=== PATIENT | male | born 1930 | race Caucasian/White ===

== ENCOUNTER → 2017-04-08 | Outpatient (CLI) | payer MEDICARE, BC ==
--- NOTE | 2017-04-08 09:05 | US ---
EXAMINATION TYPE: US duplex aorta DATE OF EXAM: 04/08/2017 COMPARISON: NONE CLINICAL HISTORY: Screening for disorder Z13.9. EXAM MEASUREMENTS: Abdominal Aorta: Proximal: 1.7 x 1.9cm Mid: 1.6 x 1.8cm Distal: 1.3 x 1.6cm Right Iliac: 0.7 x 1.1cm Left Iliac: 0.7 x 1.2cm No AAA seen at this time, limited by overlying midline bowel gas. IMPRESSION: 1. Normal abdominal aorta ultrasound. 2. There is mild limitation due to overlying bowel gas.
== END | disposition home or self-care (01) ==
LOC: RADUSWWP 08:21
PROVIDERS: ATTEND Family Medicine
DX: Z13.9 Encounter for screening, unspecified (principal)
CPT/HCPCS: 93979

== ENCOUNTER 2017-09-09 01:29 | Observation (INO) | payer MEDICARE, BC ==
[2017-09-09] MEDS ORDERED: NITROGLYCERIN OINT 1 INCH/GM PACKET TOPICAL STA (01:41)
[2017-09-09] MEDS ORDERED: ASPIRIN 81 MG PO STA (01:41)
[2017-09-09] MEDS ORDERED: ACETAMINOPHEN TAB 500 MG TAB PO STA (01:42)
[2017-09-09] MEDS: NITROGLYCERIN SL TABS 0.4 MG TAB SUBLINGUAL STA ×3 (01:44→02:25)
--- NOTE | 2017-09-09 01:49 | ED ---
General Adult HPI - General Chief complaint: Chest Pain Stated complaint: Chest Pain Time Seen by Provider: 09/09/17 01:30 Source: patient, RN notes reviewed Mode of arrival: ambulatory Limitations: no limitations - History of Present Illness Initial comments: This is an 87-year-old male who presents emergency department today complaining of chest pain with some difficulty breathing. Patient states is no radiation of the pain there's no nausea or sweating episodes. Patient states she's never experienced this before. Patient states the pain is constant and it's like a heaviness. Patient states he is hypertensive patient as well as high cholesterol. Patient denies any recent fever chills or cough. Patient denies abdominal pain patient denies nausea vomiting diarrhea. Patient denies any headache patient denies numbness weakness. Patient denies any lightheadedness dizziness or near syncopal episode. Patient states he believes his heart rates always a little bit slow. - Related Data Home Medications Medication Instructions Recorded Confirmed Lovastatin [Mevacor] 20 mg PO DAILY 06/16/14 04/17/15 Aspirin EC [Ecotrin] 81 mg PO DAILY 04/17/15 04/17/15 Celecoxib [CeleBREX] 200 mg PO DAILY 04/17/15 04/17/15 Levofloxacin [Levaquin] 500 mg PO DAILY 04/17/15 04/17/15 Metoprolol Succinate [Toprol XL] 100 mg PO DAILY 04/17/15 04/17/15 Allergies Allergy/AdvReac Type Severity Reaction Status Date / Time No Known Allergies Allergy Verified 09/09/17 01:34 Review of Systems ROS Statement: Those systems with pertinent positive or pertinent negative responses have been documented in the HPI. ROS Other: All systems not noted in ROS Statement are negative. Past Medical History Past Medical History: Hyperlipidemia, Hypertension Additional Past Medical History / Comment(s): arthritis History of Any Multi-Drug Resistant Organisms: None Reported Past Surgical History: Hernia Repair, Prostate Surgery Additional Past Surgical History / Comment(s): cataract Past Psychological History: No Psychological Hx Reported Smoking Status: Former smoker Past Alcohol Use History: Occasional Past Drug Use History: None Reported General Exam - General Exam Comments Initial Comments: GENERAL: Patient is well-developed and well-nourished. Patient is nontoxic and well- hydrated and is in fmildly distress. ENT: Neck is soft and supple. No significant lymphadenopathy is noted. Oropharynx is clear. Moist mucous membranes. Neck has full range of motion without eliciting any pain. EYES: The sclera were anicteric and conjunctiva were pink and moist. Extraocular movements were intact and pupils were equal round and reactive to light. Eyelids were unremarkable. PULMONARY: Unlabored respirations. Good breath sounds bilaterally. No audible rales rhonchi or wheezing was noted. CARDIOVASCULAR: There is a regular rate and rhythm without any murmurs gallops or rubs. ABDOMEN: Soft and nontender with normal bowel sounds. No palpable organomegaly was noted. There is no palpable pulsatile mass. SKIN: No skin lesions rashes or erythema noted NEUROLOGIC: Patient is alert and oriented x3. Cranial nerves II through XII are grossly intact. Motor and sensory are also intact. Normal speech, volume and content. Symmetrical smile. MUSCULOSKELETAL: Normal extremities with adequate strength and full range of motion. No lower extremity swelling or edema. No calf tenderness. LYMPHATICS: No significant lymphadenopathy is noted PSYCHIATRIC: Normal psychiatric evaluation. Limitations: no limitations Course Vital Signs 09/09/17 09/09/17 09/09/17 01:31 01:34 02:23 Temperature 98.3 F Pulse Rate 50 L 47 L 45 L Respiratory 18 20 20 Rate Blood Pressure 247/107 214/100 174/65 O2 Sat by Pulse 99 97 97 Oximetry 09/09/17 02:35 Temperature Pulse Rate 43 L Respiratory 18 Rate Blood Pressure 160/70 O2 Sat by Pulse 97 Oximetry Medical Decision Making - Medical Decision Making EKG shows sinus bradycardia at a rate of [address] interval is 226 QRS is 102 QT intervals 490 QTC is 442. Patient's EKG shows no ST segment elevation or depression. One pack and reevaluate the patient he stated the nitroglycerin helped his chest pain but his heart rate was 41 bpm. - Lab Data Result diagrams: 09/09/17 01:45 09/09/17 01:45 Lab Results 09/09/17 09/09/17 09/09/17 Range/Units 01:45 01:45 01:45 WBC 7.5 (3.8-10.6) k/uL RBC 4.82 (4.30-5.90) m/uL Hgb 14.6 (13.0-17.5) gm/dL Hct 46.4 (39.0-53.0) % MCV 96.2 (80.0-100.0) fL MCH 30.2 (25.0-35.0) pg MCHC 31.4 (31.0-37.0) g/dL RDW 14.8 (11.5-15.5) % Plt Count 235 (150-450) k/uL Neutrophils % 45 % Lymphocytes % 39 % Monocytes % 8 % Eosinophils % 4 % Basophils % 1 % Neutrophils # 3.4 (1.3-7.7) k/uL Lymphocytes # 2.9 (1.0-4.8) k/uL Monocytes # 0.6 (0-1.0) k/uL Eosinophils # 0.3 (0-0.7) k/uL Basophils # 0.1 (0-0.2) k/uL PT (9.0-12.0) sec INR (<1.2) APTT (22.0-30.0) sec Sodium 139 (137-145) mmol/L Potassium 3.7 (3.5-5.1) mmol/L Chloride 103 (98-107) mmol/L Carbon Dioxide 25 (22-30) mmol/L Anion Gap 11 mmol/L BUN 19 (9-20) mg/dL Creatinine 1.30 H (0.66-1.25) mg/dL Est GFR (MDRD) Af Amer >60 (>60 ml/min/1.73 sqM) Est GFR (MDRD) Non-Af 52 (>60 ml/min/1.73 sqM) Glucose 114 H (74-99) mg/dL Calcium 9.6 (8.4-10.2) mg/dL Magnesium 2.0 (1.6-2.3) mg/dL Total Bilirubin 0.5 (0.2-1.3) mg/dL AST 25 (17-59) U/L ALT 36 (21-72) U/L Alkaline Phosphatase 111 (38-126) U/L Total Creatine Kinase 39 L (55-170) U/L CK-MB (CK-2) 0.6 (0.0-2.4) ng/mL CK-MB (CK-2) Rel Index 1.5 Troponin I <0.012 (0.000-0.034) ng/mL Total Protein 7.2 (6.3-8.2) g/dL Albumin 4.1 (3.5-5.0) g/dL 09/09/17 Range/Units 01:45 WBC (3.8-10.6) k/uL RBC (4.30-5.90) m/uL Hgb (13.0-17.5) gm/dL Hct (39.0-53.0) % MCV (80.0-100.0) fL MCH (25.0-35.0) pg MCHC (31.0-37.0) g/dL RDW (11.5-15.5) % Plt Count (150-450) k/uL Neutrophils % % Lymphocytes % % Monocytes % % Eosinophils % % Basophils % % Neutrophils # (1.3-7.7) k/uL Lymphocytes # (1.0-4.8) k/uL Monocytes # (0-1.0) k/uL Eosinophils # (0-0.7) k/uL Basophils # (0-0.2) k/uL PT 10.3 (9.0-12.0) sec INR 1.1 (<1.2) APTT 25.0 (22.0-30.0) sec Sodium (137-145) mmol/L Potassium (3.5-5.1) mmol/L Chloride (98-107) mmol/L Carbon Dioxide (22-30) mmol/L Anion Gap mmol/L BUN (9-20) mg/dL Creatinine (0.66-1.25) mg/dL Est GFR (MDRD) Af Amer (>60 ml/min/1.73 sqM) Est GFR (MDRD) Non-Af (>60 ml/min/1.73 sqM) Glucose (74-99) mg/dL Calcium (8.4-10.2) mg/dL Magnesium (1.6-2.3) mg/dL Total Bilirubin (0.2-1.3) mg/dL AST (17-59) U/L ALT (21-72) U/L Alkaline Phosphatase (38-126) U/L Total Creatine Kinase (55-170) U/L CK-MB (CK-2) (0.0-2.4) ng/mL CK-MB (CK-2) Rel Index Troponin I (0.000-0.034) ng/mL Total Protein (6.3-8.2) g/dL Albumin (3.5-5.0) g/dL Critical Care Time Critical Care Time: Yes Total Critical Care Time: 35 Disposition Clinical Impression: Unstable angina pectoris, Bradycardia Disposition: ADMITTED IP TO THIS HOSP Referrals: Jose Castillo MD [Primary Care Provider] - 1-2 days Time of Disposition: 02:53
[2017-09-09 01:55] LABS: Basophils # (A) 0.1 k/uL (0-0.2); Basophils % (A) 1 %; Eosinophils # (A) 0.3 k/uL (0-0.7); Eosinophils % (A) 4 %; HCT 46.4 % (39.0-53.0); HGB 14.6 gm/dL (13.0-17.5); Lymphocytes # (A) 2.9 k/uL (1.0-4.8); Lymphocytes % (A) 39 %; MCH 30.2 pg (25.0-35.0); MCHC 31.4 g/dL (31.0-37.0); MCV 96.2 fL (80.0-100.0); Mean Platelet Volume 7.9; Monocytes # (A) 0.6 k/uL (0-1.0); Monocytes % (A) 8 %; Neutrophils # (A) 3.4 k/uL (1.3-7.7); Neutrophils % (A) 45 %; Platelet Count 235 k/uL (150-450); RBC 4.82 m/uL (4.30-5.90); RDW 14.8 % (11.5-15.5); WBC 7.5 k/uL (3.8-10.6)
--- NOTE | 2017-09-09 01:59 | XR ---
EXAMINATION TYPE: XR chest 2V DATE OF EXAM: 09/09/2017 COMPARISON: NONE HISTORY: Chest pain TECHNIQUE: Frontal and lateral views of the chest are obtained. FINDINGS: There is coarsening of interstitial markings. There is no gross heart failure. Costophreni c angles are clear. Bony thorax is intact. There are chest leads. IMPRESSION: Pulmonary fibrotic changes.
[2017-09-09 02:03] LABS: INR 1.1 (<1.2); Prothrombin Time 10.3 sec (9.0-12.0)
[2017-09-09 02:04] LABS: ALT 36 U/L (21-72); AST 25 U/L (17-59); Albumin 4.1 g/dL (3.5-5.0); Alkaline Phosphatase 111 U/L (38-126); Anion Gap 11 mmol/L; Blood Urea Nitrogen 19 mg/dL (9-20); Calcium 9.6 mg/dL (8.4-10.2); Carbon Dioxide 25 mmol/L (22-30); Chloride 103 mmol/L (98-107); Glucose 114 mg/dL (74-99); Potassium 3.7 mmol/L (3.5-5.1); Sodium 139 mmol/L (137-145); Total Bilirubin 0.5 mg/dL (0.2-1.3); Total Protein 7.2 g/dL (6.3-8.2)
[2017-09-09 02:13] LABS: Creatine Kinase 39 U/L (55-170)
[2017-09-09 02:26] LABS: Creatine Kinase MB 0.6 ng/mL (0.0-2.4); Troponin I <0.012 ng/mL (0.000-0.034)
[2017-09-09] MEDS ORDERED: HEPARIN SODIUM,PORCINE 5,000 UNIT/ML 1 ML VIAL IV ONE (02:37)
[2017-09-09] MEDS ORDERED: HEPARIN SOD,PORK IN 0.45% NACL 25,000 UNIT in 0.45% NACL 1 500ML.BAG IV SCH (02:45)
[2017-09-09] MEDS ORDERED: NITROGLYCERIN SL TABS 0.4 MG TAB SUBLINGUAL PRN ×2 (02:53→11:53)
[2017-09-09 03:28] VITALS: BMI 27.8
[2017-09-09] MEDS: NITROGLYCERIN OINT 1 INCH/GM PACKET TOPICAL SCH ×3 (04:59→16:23)
[2017-09-09] MEDS ORDERED: KETOROLAC 30 MG/ML 1 ML VIAL IVP STA (05:10)
[2017-09-09] MEDS ORDERED: amLODIPine 10 MG TAB PO STA (05:11)
[2017-09-09 08:47] LABS: Basophils % (A) 0 %; Eosinophils % (A) 0 %; HCT 40.2 % (39.0-53.0); HGB 13.4 gm/dL (13.0-17.5); Lymphocytes # (A) 1.3 k/uL (1.0-4.8); Lymphocytes % (A) 18 %; MCH 31.3 pg (25.0-35.0); MCHC 33.3 g/dL (31.0-37.0); Mean Platelet Volume 7.5; Monocytes # (A) 0.4 k/uL (0-1.0); Monocytes % (A) 5 %; Neutrophils # (A) 5.6 k/uL (1.3-7.7); Neutrophils % (A) 74 %; Platelet Count 228 k/uL (150-450); RBC 4.27 m/uL (4.30-5.90); RDW 13.3 % (11.5-15.5); WBC 7.5 k/uL (3.8-10.6)
[2017-09-09 09:02] LABS: Anion Gap 9 mmol/L; Blood Urea Nitrogen 19 mg/dL (9-20); Calcium 9.1 mg/dL (8.4-10.2); Carbon Dioxide 27 mmol/L (22-30); Chloride 104 mmol/L (98-107); Glucose 128 mg/dL (74-99); Potassium 4.6 mmol/L (3.5-5.1); Sodium 140 mmol/L (137-145)
[2017-09-09 09:43] LABS: Creatine Kinase MB 18.5 ng/mL (0.0-2.4); Troponin I 0.909 ng/mL (0.000-0.034)
[2017-09-09] MEDS ORDERED: LISINOPRIL 10 MG TAB PO STA (11:43)
--- NOTE | 2017-09-09 11:52 | P.CRDCN ---
History of Present Illness Consult date: 09/09/17 Requesting physician: Adina Bolden Consult reason: chest pain Chief complaint: Chest Pain History of present illness: This is an 87-year-old gentleman with history of hypertension, hyperlipidemia, nonsmoker, nondiabetic, family history of premature coronary artery disease, who presents to the hospital with symptoms of chest discomfort. He states that around 1 AM this morning he got up to use the restroom, shortly thereafter developed pressure in the center of his chest, which he described as a heavy sensation with associated tightness. He denies any shortness of breath, no diaphoresis, no nausea. He came to the emergency room for further evaluation. EKG on presentation here showed a sinus bradycardia with first-degree AV block, mild STelevation noted in the inferior leads with minimal ST depression in the anterior leads. Chest X-ray reveals pulmonary fibrotic changes. B/P on arrival here 247/107. Heart Rate 50, 99% on room air. Blood pressure this morning 182/80, heart rate in the 40s to 50s. Patient states he is known to run a low heart rate, he denies any dizziness, no lightheadedness. A shunt was on 100 mg of atenolol as an outpatient. Laboratory data was reviewed, CBC normal, potassium 4.6, sodium 140, BUN 19, creatinine 1.1. Magnesium level 2.0, initial troponin 0.012, subsequent troponin 0.909. CK 39 on admission , 385 this morning, MB 0.6, 18.5 this morning. At the time of my examination this morning he is currently chest pain- free. We will repeat an EKG this morning and obtain a stat echocardiogram with Doppler study. Patient has also been advised to undergo cardiac catheterization , the risks and benefits were explained to him in detail, and he is willing to proceed. Past Medical History Past Medical History: Hyperlipidemia, Hypertension Additional Past Medical History / Comment(s): arthritis History of Any Multi-Drug Resistant Organisms: None Reported Past Surgical History: Hernia Repair, Prostate Surgery Additional Past Surgical History / Comment(s): cataract Past Anesthesia/Blood Transfusion Reactions: No Reported Reaction Past Psychological History: No Psychological Hx Reported Smoking Status: Former smoker Past Alcohol Use History: Daily Additional Past Alcohol Use History / Comment(s): 2-3 beers/day Past Drug Use History: None Reported - Past Family History Father History Unknown: Yes Family Medical History: Unable to Obtain Medications and Allergies Home Medications Medication Instructions Recorded Confirmed Type Lovastatin [Mevacor] 20 mg PO DAILY 06/16/14 09/09/17 History Aspirin EC [Ecotrin] 81 mg PO Q48H 04/17/15 09/09/17 History Celecoxib [CeleBREX] 200 mg PO DAILY 04/17/15 09/09/17 History Atenolol 100 mg PO DAILY 09/09/17 09/09/17 History Calcium Carbonate [Calcium] 600 mg PO DAILY 09/09/17 09/09/17 History Naproxen Sodium [Aleve] 220 mg PO BID 09/09/17 09/09/17 History [place]-3 Fatty Acids/Fish Oil [Fish 1 cap PO DAILY 09/09/17 09/09/17 History Oil 1,000 mg Softgel] Allergies Allergy/AdvReac Type Severity Reaction Status Date / Time No Known Allergies Allergy Verified 09/09/17 08:04 Physical Exam Vitals: Vital Signs Temp Pulse Pulse Resp BP BP Pulse Ox 09/09/17 05:47 42 L 182/80 09/09/17 04:50 186/75 09/09/17 03:46 176/71 09/09/17 03:43 96.4 F L 45 L 18 198/88 97 09/09/17 02:57 78 161/81 97 09/09/17 02:35 43 L 18 160/70 97 09/09/17 02:23 45 L 20 174/65 97 09/09/17 01:34 47 L 20 214/100 97 09/09/17 01:31 98.3 F 50 L 18 247/107 99 Intake and Output 09/08/17 09/09/17 09/09/17 22:59 06:59 14:59 Intake Total 80 Output Total 200 Balance 80 -200 Intake: IV 20 0.9 20 Lipid 60 Heparin Sod,Pork in 0.45% 60 NaCl 25,000 unit In 0.45 % NaCl 1 500ml.bag @ 11. 03 UNITS/KG/HR 20.01 mls/ hr IV .Q24H COUNT INCLUDES THE [facility] Rx#: [id number] Output: Urine 200 Other: Weight 93 kg PHYSICAL EXAMINATION: HEENT: [Head is atraumatic, normocephalic. Pupils equal, round. Neck is supple. There is no elevated jugular venous pressure.] HEART EXAMINATION: [Heart S1, S2 normal. No murmur or gallop heard.] CHEST EXAMINATION:[ Lungs are clear to auscultation and precussion. No chest wall tenderness is noted on palpation or with deep breathing.] ABDOMEN: [ Soft, nontender. Bowel sounds are heard. No organomegaly noted]. EXTREMITIES:[ 2+ peripheral pulses with no evidence of peripheral edema and no calf tenderness noted]. NEUROLOGIC [patient is awake, alert and oriented -3.] . Results 09/09/17 08:26 09/09/17 08:26 Cardiac Enzymes 09/09/17 09/09/17 09/09/17 Range/Units 01:45 01:45 08:26 AST 25 (17-59) U/L CK-MB (CK-2) 0.6 18.5 H* (0.0-2.4) ng/mL Troponin I <0.012 0.909 H* (0.000-0.034) ng/mL Coagulation 09/09/17 09/09/17 Range/Units 01:45 08:26 PT 10.3 (9.0-12.0) sec APTT 25.0 72.7 H (22.0-30.0) sec CBC 09/09/17 09/09/17 Range/Units 01:45 08:26 WBC 7.5 7.5 (3.8-10.6) k/uL RBC 4.82 4.27 L (4.30-5.90) m/uL Hgb 14.6 13.4 (13.0-17.5) gm/dL Hct 46.4 40.2 (39.0-53.0) % Plt Count 235 228 (150-450) k/uL Comprehensive Metabolic Panel 09/09/17 09/09/17 Range/Units 01:45 08:26 Sodium 139 140 (137-145) mmol/L Potassium 3.7 4.6 (3.5-5.1) mmol/L Chloride 103 104 (98-107) mmol/L Carbon Dioxide 25 27 (22-30) mmol/L BUN 19 19 (9-20) mg/dL Creatinine 1.30 H 1.14 (0.66-1.25) mg/dL Glucose 114 H 128 H (74-99) mg/dL Calcium 9.6 9.1 (8.4-10.2) mg/dL AST 25 (17-59) U/L ALT 36 (21-72) U/L Alkaline Phosphatase 111 (38-126) U/L Total Protein 7.2 (6.3-8.2) g/dL Albumin 4.1 (3.5-5.0) g/dL Current Medications Generic Name Dose Route Start Last Admin Trade Name Freq PRN Reason Stop Dose Admin Aspirin 325 mg 09/10/17 09:00 Aspirin PO DAILY COUNT INCLUDES THE [facility] Heparin Sodium/Sodium Chloride 500 mls @ 20.01 mls/hr 09/09/17 02:45 02:50 25,000 unit/ Sodium Chloride IV 11.02 units/kg/hr .Q24H [place] 20 mls/hr Protocol Administration 11.03 UNITS/KG/HR Nitroglycerin 1 inch 09/09/17 06:00 09/09/17 04:59 Nitro-Bid Oint TOPICAL 1 inch Q6HR [place] Administration Nitroglycerin 0.4 mg 09/09/17 02:53 Nitrostat SUBLINGUAL Q5M PRN Chest Pain Intake and Output 09/08/17 09/09/17 09/09/17 22:59 06:59 14:59 Intake Total 80 Output Total 200 Balance 80 -200 Intake: IV 20 0.9 20 Lipid 60 Heparin Sod,Pork in 0.45% 60 NaCl 25,000 unit In 0.45 % NaCl 1 500ml.bag @ 11. 03 UNITS/KG/HR 20.01 mls/ hr IV .Q24H COUNT INCLUDES THE [facility] Rx#: [id number] Output: Urine 200 Other: Weight 93 kg 09/09/17 08:26 09/09/17 08:26 EKG Interpretations (text) EKG shows sinus bradycardia with mild inferior ST elevation and ST depression in the anterior leads. Assessment and Plan Plan: Assessment and plan #1 non-Q-wave IA #2 accelerated hypertension #3 hyperlipidemia #4 bradycardia, on atenolol 100 mg at home, currently on hold. Plan We will continue aspirin, give 80 of Lipitor to the patient, Norvasc 10 mg as well as lisinopril. Continue Nitropaste. Continue to hold beta monroe Stat Echo. Patient has been advised to undergo cardiac catheterization, the risks and benefits explained in detail. This will be performed this morning by Dr. Beaver. DNP note has been reviewed, I agree with a documented findings and plan of care. Patient was seen and examined.
[2017-09-09] MEDS ORDERED: SODIUM CHLORIDE 0.9% 1,000 ML in EMPTY BAG 1 BAG IV ONE (11:53)
[2017-09-09] MEDS ORDERED: ASPIRIN 325 MG TAB PO STA (11:53)
[2017-09-09] MEDS ORDERED: ATORVASTATIN 80 MG TAB PO STA (11:53)
[2017-09-09] MEDS ORDERED: ALPRAZolam 0.5 MG TAB PO PRN (11:53)
[2017-09-09] MEDS ORDERED: ALPRAZolam 0.25 MG TAB PO PRN (11:53)
[2017-09-09 12:42] LABS: Glucose,Whole Blood 121 mg/dL (75-99)
[2017-09-09] MEDS ORDERED: LIDOCAINE 2% INJ 20 MG/ML (20 ML MDV) ONE (14:36)
[2017-09-09 14:42] LABS: Troponin I 5.69 ng/mL (0.000-0.034)
[2017-09-09] MEDS ORDERED: MIDAZOLAM 2 MG/2 ML VIAL ONE (14:50)
[2017-09-09] MEDS ORDERED: fentaNYL (PF) 50 MCG/ML 2 ML AMP ONE (14:50)
[2017-09-09] MEDS ORDERED: MIDAZOLAM 2 MG/2 ML VIAL IVP ONE (14:56)
[2017-09-09] MEDS ORDERED: IV FLUID CONTINUATION 700 ML IV ONE (14:56)
[2017-09-09] MEDS ORDERED: fentaNYL (PF) 50 MCG/ML 2 ML AMP IV ONE (14:56)
[2017-09-09] MEDS ORDERED: LIDOCAINE 2% INJ 20 MG/ML SQ ONE (15:00)
[2017-09-09] MEDS ORDERED: IOHEXOL 350 MG/ML 125ML BOTTLE INJ ONE (15:16)
[2017-09-09] MEDS ORDERED: RX INFO: IV CONTRAST WAS GIVEN 1 EACH MISC MISCELLANE PRN (15:30)
[2017-09-09] MEDS ORDERED: ATENOLOL 50 MG TAB PO SCH (15:45)
[2017-09-09] MEDS: CLOPIDOGREL 75 MG TAB PO SCH (16:22)
[2017-09-09 16:32] LABS: Glucose,Whole Blood 126 mg/dL (75-99)
--- NOTE | 2017-09-09 17:48 | CC ---
CARDIAC CATHETERIZATION REPORT Mr. Garay is an 87-year-old gentleman who came with symptoms of chest pain. EKG showed minimal J-point elevation in the inferior leads. The troponin was positive suggestive of non-Q-wave myocardial infarction. In view of that, the patient was recommended to have a cardiac catheterization for definitive diagnosis. PROCEDURE: The right groin was prepped and draped in the usual manner and the skin was infiltrated with 2% Xylocaine. The right femoral artery was entered using Seldinger technique and a #6-Amharic sheath was placed in. Selective coronary angiography was then performed in multiple projections and the left ventricular pressures were obtained. Sheath was removed and good hemostasis was achieved with the use of manual compression. SEDATION: Moderate sedation was used, total sedation time was 17 minutes. HEMODYNAMICS: The left ventricular end-diastolic pressure was 24 mmHg prior to angiography. No gradient is noted across the aortic valve. SELECTIVE CORONARY ANGIOGRAPHY: Left main coronary artery is normal and patent. LAD is a good caliber blood vessel, and gives rise to a good size diagonal branch which is a large caliber blood vessel and then the LAD becomes a small caliber blood vessel. Mild irregularities noted in the mid LAD. Circumflex coronary artery is nondominant and gives rise to first obtuse marginal branch which is normal. The right coronary artery is a large caliber blood vessel, gives rise to the posterior descending artery. There is minimal irregularity in the mid RCA noted. FINAL IMPRESSION: This study shows mild irregularity in the RCA and mid LAD. The circumflex coronary artery is nondominant. RECOMMENDATIONS: Continue medical treatment. MMODL / IJN: [id number] /
[2017-09-09 21:06] LABS: Glucose,Whole Blood 127 mg/dL (75-99)
[2017-09-10] MEDS: NAPROXEN 250 MG TAB PO SCH ×2 (00:12→08:01)
[2017-09-10 05:36] LABS: Glucose,Whole Blood 110 mg/dL (75-99)
[2017-09-10] MEDS: NITROGLYCERIN OINT 1 INCH/GM PACKET TOPICAL SCH ×2 (05:59→10:33)
[2017-09-10 06:28] LABS: Basophils % (A) 0 %; Eosinophils # (A) 0.1 k/uL (0-0.7); Eosinophils % (A) 2 %; HCT 42.9 % (39.0-53.0); HGB 13.6 gm/dL (13.0-17.5); Lymphocytes # (A) 1.5 k/uL (1.0-4.8); Lymphocytes % (A) 19 %; MCH 30.4 pg (25.0-35.0); MCHC 31.8 g/dL (31.0-37.0); MCV 95.6 fL (80.0-100.0); Mean Platelet Volume 8.1; Monocytes # (A) 0.6 k/uL (0-1.0); Monocytes % (A) 8 %; Neutrophils # (A) 5.4 k/uL (1.3-7.7); Neutrophils % (A) 69 %; Platelet Count 211 k/uL (150-450); RBC 4.48 m/uL (4.30-5.90); RDW 14.6 % (11.5-15.5); WBC 7.9 k/uL (3.8-10.6)
[2017-09-10 06:43] LABS: Cholesterol 149 mg/dL (<200); HDL Cholesterol 52 mg/dL (40-60); LDL Cholesterol,Calculated 72 mg/dL (0-99); Triglycerides 123 mg/dL (<150)
[2017-09-10] MEDS: CLOPIDOGREL 75 MG TAB PO SCH (08:01)
[2017-09-10 08:52] VITALS: PULSE 48
[2017-09-10] MEDS ORDERED: ASPIRIN 325 MG TAB PO SCH (09:00)
[2017-09-10] MEDS ORDERED: ASPIRIN 81 MG PO SCH (09:00)
[2017-09-10] MEDS ORDERED: ATORVASTATIN 10 MG TAB PO SCH (09:00)
[2017-09-10] MEDS ORDERED: amLODIPine 5 MG TAB PO SCH (09:30)
--- NOTE | 2017-09-10 11:20 | ECHOF ---
Referral Reason:chest pain MEASUREMENTS -------- HEIGHT: 182.9 cm WEIGHT: 93.0 kg BP: 182/80 RVIDd: 3.9 cm (< 3.3) IVSd: 1.3 cm (0.6 - 1.1) LVIDd: 4.6 cm (3.9 - 5.3) LVPWd: 1.3 cm (0.6 - 1.1) IVSs: 1.6 cm LVIDs: 3.2 cm LVPWs: 1.4 cm LAESV Index (A-L): 32.94 ml/m Ao Diam: 3.6 cm (2.0 - 3.7) AV Cusp: 1.8 cm (1.5 - 2.6) LA Diam: 4.5 cm (2.7 - 3.8) MV E Jose: 1.24 m/s MV DecT: 201 ms MV A Jose: 1.02 m/s MV E/A Ratio: 1.22 RAP: 5.00 mmHg RVSP: 59.12 mmHg FINDINGS -------- Sinus rhythm. This was a technically adequate study. The left ventricular size is normal. There is mild concentric left ventricular hypertrophy. Overa ll left ventricular systolic function is normal with, an EF between 55 - 60 %. The right ventricle is normal in size and function. LA is midly dilated 29-33ml/m2. RA appears enlarged. Aortic valve is trileaflet and is mildly thickened. Trace to mild aortic regurgitation. There is no evidence of aortic stenosis. The mitral valve leaflets are mildly thickened. There is trace to mild mitral regurgitation. Mild tricuspid regurgitation present. There is moderate pulmonary hypertension. The right ventric ular systolic pressure, as measured by Doppler, is 59.12mmHg. The pulmonic valve was not well visualized. The aortic root size is normal. Normal inferior vena cava with normal inspiratory collapse consistent with estimated right atrial pre ssure of 5 mmHg. The pericardium is normal. There is no pericardial effusion. CONCLUSIONS -------- 1. Sinus rhythm. 2. This was a technically adequate study. 3. The left ventricular size is normal. 4. There is mild concentric left ventricular hypertrophy. 5. Overall left ventricular systolic function is normal with, an EF between 55 - 60 %. 6. LA is midly dilated 29-33ml/m2. 7. RA appears enlarged. 8. Aortic valve is trileaflet and is mildly thickened. 9. Trace to mild aortic regurgitation. 10. The mitral valve leaflets are mildly thickened. 11. There is trace to mild mitral regurgitation. 12. Mild tricuspid regurgitation present. 13. There is moderate pulmonary hypertension. 14. The right ventricular systolic pressure, as measured by Doppler, is 59.12mmHg. 15. The pulmonic valve was not well visualized. 16. The aortic root size is normal. 17. There is no pericardial effusion. TRAUMA COORDINATOR: Jitendra Cheek RDCS
[2017-09-10 12:13] LABS: Glucose,Whole Blood 124 mg/dL (75-99)
--- NOTE | 2017-09-10 12:21 | P.DS ---
Providers Date of admission: 09/09/17 02:53 Expected date of discharge: 09/10/17 Attending physician: Jose Castillo Consults: 09/09/17 02:53 Consult Physician Urgent Consulting Provider: [facility] Consult Reason/Comments: Unstable angina, bradycardia Do you want consulting provider notified?: Yes Primary care physician: Jose Castillo Hospital Course: 87-year-old male was admitted to the emergency room with complaints of chest pain with heaviness. On EKG was found to be in a first-degree AV block with heart rate of 49. Patient was evaluated by [facility] cardiology and diagnosed with non-Q-wave AK patient had a cardiac catheterization decision was made for medical treatment Assessment Non-Q wave [place] Hypertension Hyperlipidemia Bradycardia Plan Follow-up with cardiology and family physician Medication be adjusted by cardiology Plan - Discharge Summary Discharge Rx Participant: No New Discharge Prescriptions: No Action Lovastatin [Mevacor] 20 mg PO DAILY Celecoxib [CeleBREX] 200 mg PO DAILY Aspirin EC [Ecotrin] 81 mg PO Q48H Naproxen Sodium [Aleve] 220 mg PO BID Atenolol 100 mg PO DAILY [place]-3 Fatty Acids/Fish Oil [Fish Oil 1,000 mg Softgel] 1 cap PO DAILY Calcium Carbonate [Calcium] 600 mg PO DAILY Discharge Medication List Lovastatin [Mevacor] 20 mg PO DAILY 06/16/14 [History] Aspirin EC [Ecotrin] 81 mg PO Q48H 04/17/15 [History] Celecoxib [CeleBREX] 200 mg PO DAILY 04/17/15 [History] Atenolol 100 mg PO DAILY 09/09/17 [History] Calcium Carbonate [Calcium] 600 mg PO DAILY 09/09/17 [History] Naproxen Sodium [Aleve] 220 mg PO BID 09/09/17 [History] [place]-3 Fatty Acids/Fish Oil [Fish Oil 1,000 mg Softgel] 1 cap PO DAILY [History] Follow up Appointment(s)/Referral(s): Jose Castillo MD [Primary Care Provider] - 09/27/17 8:10 am (PREVIOUS SCHEDULED APPOINTMENT ) Hayley Beaver MD [STAFF PHYSICIAN] - 09/20/17 4:30 pm (SATURDAY EARLIEST AVAILABLE )
[2017-09-10 12:23] VITALS: BP 156/77; RESP 16; TEMP 98
--- NOTE | 2017-09-10 14:02 | P.PN ---
Subjective Progress Note Date: 09/10/17 This is an 87-year-old gentleman with history of hypertension, hyperlipidemia, nonsmoker, nondiabetic, family history of premature coronary artery disease, who presents to the hospital with symptoms of chest discomfort. He states that around 1 AM this morning he got up to use the restroom, shortly thereafter developed pressure in the center of his chest, which he described as a heavy sensation with associated tightness. He denies any shortness of breath, no diaphoresis, no nausea. He came to the emergency room for further evaluation. EKG on presentation here showed a sinus bradycardia with first-degree AV block, mild STelevation noted in the inferior leads with minimal ST depression in the anterior leads. Chest X-ray reveals pulmonary fibrotic changes. B/P on arrival here 247/107. Heart Rate 50, 99% on room air. Blood pressure this morning 182/80, heart rate in the 40s to 50s. Patient states he is known to run a low heart rate, he denies any dizziness, no lightheadedness. A shunt was on 100 mg of atenolol as an outpatient. Laboratory data was reviewed, CBC normal, potassium 4.6, sodium 140, BUN 19, creatinine 1.1. Magnesium level 2.0, initial troponin 0.012, subsequent troponin 0.909. CK 39 on admission , 385 this morning, MB 0.6, 18.5 this morning. At the time of my examination this morning he is currently chest pain- free. We will repeat an EKG this morning and obtain a stat echocardiogram with Doppler study. Patient has also been advised to undergo cardiac catheterization , the risks and benefits were explained to him in detail, and he is willing to proceed. 09/10/2017 patient underwent a cardiac catheterization yesterday by Dr. VC Beaver which revealed mild irregularity in the RCA and mid LAD, circumflex artery was nondominant. Medical therapy was advised. Patient's atenolol has been held, we will start the patient on Coreg 6.25 mg by mouth twice a day to be started in 2 days, for more optimal blood pressure control and less effect on the heart rate. We will also give the patient 5 mg of Norvasc daily along with Plavix and baby aspirin. Objective - Vital Signs Vital signs: Vital Signs Temp 98.0 F 09/10/17 12:00 Pulse 48 L 09/10/17 12:00 Resp 16 09/10/17 12:00 BP 156/77 09/10/17 12:00 Pulse Ox 97 09/10/17 12:00 Intake & Output 09/09/17 09/10/17 09/10/17 18:59 06:59 18:59 Intake Total 480 240 Output Total 200 1950 Balance 280 -1950 240 Weight 90.1 kg Intake: IV 480 0.9 350 Heparin Sod,Pork in 0.45% 80 NaCl 25,000 unit In 0.45 % NaCl 1 500ml.bag @ 11. 03 UNITS/KG/HR 20.01 mls/ hr IV .Q24H GEOR[place]ES Rx#: [id number] Oral 240 Output: Urine 200 1950 Other: # Voids 3 2 - Exam PHYSICAL EXAMINATION: HEENT: Head is atraumatic, normocephalic. Pupils equal, round. Neck is supple. There is no elevated jugular venous pressure. HEART EXAMINATION: Heart S1, S2 normal. No murmur or gallop heard. CHEST EXAMINATION: Lungs are clear to auscultation and precussion. No chest wall tenderness is noted on palpation or with deep breathing. ABDOMEN: Soft, nontender. Bowel sounds are heard. No organomegaly noted. Right groin soft, no evidence of any hematoma. EXTREMITIES: 2+ peripheral pulses with no evidence of peripheral edema and no calf tenderness noted. NEUROLOGIC patient is awake, alert and oriented -3. - Labs CBC & Chem 7: 09/10/17 05:32 09/09/17 08:26 Labs: Abnormal Lab Results - Last 24 Hours (Table) 09/09/17 09/09/17 09/09/17 Range/Units 13:51 16:30 21:03 POC Glucose (mg/dL) 126 H 127 H (75-99) mg/dL Total Creatine Kinase 730 H (55-170) U/L CK-MB (CK-2) 32.0 H* (0.0-2.4) ng/mL Troponin I 5.690 H* (0.000-0.034) ng/mL 09/10/17 09/10/17 Range/Units 05:26 11:51 POC Glucose (mg/dL) 110 H 124 H (75-99) mg/dL Total Creatine Kinase (55-170) U/L CK-MB (CK-2) (0.0-2.4) ng/mL Troponin I (0.000-0.034) ng/mL Assessment and Plan Plan: Assessment and plan #1 non-Q-wave NJ #2 accelerated hypertension #3 hyperlipidemia #4 bradycardia #5 status post cardiac catheterization, which revealed mild irregularity in the RCA and mid LAD medical therapy advised. Plan We will continue aspirin, Lipitor 80, discontinue atenolol, start Coreg 6.25 mg twice a day in 2 days, and initiate Norvasc 5 mg daily, Plavix 75 mg daily. Patient may be able to be discharged home to follow-up with Dr. VC Beaver in the office in one week. DNP note has been reviewed, I agree with a documented findings and plan of care. Patient was seen and examined.
[2017-09-11] MEDS ORDERED: CARVEDILOL 6.25 MG TAB PO SCH (07:30)
--- NOTE | 2017-09-23 12:21 | P.HPIM ---
History of Present Illness 87-year-old male presented to the emergency room 09/09/2017 with complaints of chest pain. Patient was found to be in bradycardia with elevated enzymes patient was then admitted for evaluation by cardiology Review of Systems Cardiovascular: Reports chest pain, Reports shortness of breath Past Medical History Past Medical History: Hyperlipidemia, Hypertension Additional Past Medical History / Comment(s): arthritis History of Any Multi-Drug Resistant Organisms: None Reported Past Surgical History: Hernia Repair, Prostate Surgery Additional Past Surgical History / Comment(s): cataract Past Anesthesia/Blood Transfusion Reactions: No Reported Reaction Past Psychological History: No Psychological Hx Reported Smoking Status: Former smoker Past Alcohol Use History: Daily Additional Past Alcohol Use History / Comment(s): 2-3 beers/day Past Drug Use History: None Reported - Past Family History Father History Unknown: Yes Family Medical History: Unable to Obtain Medications and Allergies Home Medications Medication Instructions Recorded Confirmed Type Lovastatin [Mevacor] 20 mg PO DAILY 06/16/14 09/09/17 History Calcium Carbonate [Calcium] 600 mg PO DAILY 09/09/17 09/09/17 History Benavides-3 Fatty Acids/Fish Oil [Fish 1 cap PO DAILY 09/09/17 09/09/17 History Oil 1,000 mg Softgel] Aspirin EC [Ecotrin Low Dose] 81 mg PO DAILY #30 tablet.dr 09/10/17 Rx Carvedilol [Coreg] 6.25 mg PO BID-W/MEALS #60 tab 09/10/17 Rx Clopidogrel [Plavix] 75 mg PO DAILY #30 tab 09/10/17 Rx Nitroglycerin Sl Tabs [Nitrostat] 0.4 mg SUBLINGUAL Q5M PRN #25 tab 09/10/17 Rx amLODIPine [Norvasc] 5 mg PO DAILY #30 tab 09/10/17 Rx Allergies Allergy/AdvReac Type Severity Reaction Status Date / Time No Known Allergies Allergy Verified 09/09/17 08:04 Physical Exam - Constitutional General appearance: average body habitus - EENT Eyes: PERRLA Ears: bilateral: normal - Neck Neck: normal ROM - Cardiovascular Rhythm: regular - Gastrointestinal General gastrointestinal: soft - Integumentary Integumentary: normal - Neurologic Neurologic: CNII-XII intact - Psychiatric Psychiatric: A&O x's 3, appropriate affect, intact judgment & insight Results CBC & Chem 7: 09/10/17 05:32 09/09/17 08:26 Chest x-ray: report reviewed Thrombosis Risk Factor Assmnt - Choose All That Apply Any of the Below Risk Factors Present?: Yes Each Risk Factor Represents 3 Points: Age 75 years or older Thrombosis Risk Factor Assessment Total Risk Factor Score: 3 Thrombosis Risk Factor Assessment Level: Moderate Risk Assessment and Plan Plan: Assessment Unstable angina with bradycardia rhythm History of hypertension History of hyperlipidemia Plan Cardiac catheterization with consultation with cardiology
== END 2017-09-10 14:14 | disposition home or self-care (01) ==
LOC: EC 01:29 → 6SEL 02:53
PROVIDERS: ADMIT Family Medicine; ATTEND Family Medicine
DX: I21.4 Non-ST elevation (NSTEMI) myocardial infarction (principal); I10 Essential (primary) hypertension; E78.5 Hyperlipidemia, unspecified; R00.1 Bradycardia, unspecified; I44.0 Atrioventricular block, first degree; M19.90 Unspecified osteoarthritis, unspecified site; Z87.891 Personal history of nicotine dependence; Z79.82 Long term (current) use of aspirin; Z79.2 Long term (current) use of antibiotics; Z79.1 Long term (current) use of non-steroidal anti-inflammatories (NSAID); Z82.49 Family history of ischemic heart disease and other diseases of the circulatory system
CPT/HCPCS: 99152; 96376 ×2; 96365 ×2; 99291 ×2; 96361; 96366; 96375; 93005 ×2; 36415; 93306; 93458; 80061; 80053; 80048; 82550; 82553; 83735; 84443; 84484; 85025 ×2; 85610; 85730 ×2; 71046; G0378 ×2; C1894; C1769; J2001; J2250; J1644 ×2; J3010; J1885; Q9967

== ENCOUNTER → 2017-12-12 | Outpatient (CLI) | payer MEDICARE, BC ==
--- NOTE | 2017-12-13 07:48 | ECHOF ---
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 This was a technically good study. The left ventricular size is normal. There is moderate concentric left ventricular hypertrophy. O verall left ventricular systolic function is normal with, an EF between 55 - 60 %. The right ventricle is normal in size. LA is midly dilated 29-33ml/m2. The right atrium is normal in size. There is mild aortic valve sclerosis. Mild mitral annular calcification present. There is trace mitral regurgitation. Mild tricuspid regurgitation present. There is mild pulmonary hypertension. The right ventricular systolic pressure, as measured by Doppler, is 44.41mmHg. There is no pulmonic regurgitation present. The aortic root size is normal. Normal inferior vena cava with normal inspiratory collapse consistent with estimated right atrial pre ssure of 5 mmHg. There is no pericardial effusion. CONCLUSIONS -------- 1. Sinus rhythm. 2. This was a technically good study. 3. The left ventricular size is normal. 4. There is moderate concentric left ventricular hypertrophy. 5. Overall left ventricular systolic function is normal with, an EF between 55 - 60 %. 6. The right ventricle is normal in size. 7. LA is midly dilated 29-33ml/m2. 8. The right atrium is normal in size. 9. There is mild aortic valve sclerosis. 10. Mild mitral annular calcification present. 11. There is trace mitral regurgitation. 12. Mild tricuspid regurgitation present. 13. There is mild pulmonary hypertension. 14. The right ventricular systolic pressure, as measured by Doppler, is 44.41mmHg. 15. There is no pulmonic regurgitation present. 16. The aortic root size is normal. 17. Normal inferior vena cava with normal inspiratory collapse consistent with estimated right atrial pressure of 5 mmHg. 18. There is no pericardial effusion. POINT OF CARE SPECIALIST: Karo Mccann RDCS
== END | disposition home or self-care (01) ==
LOC: RADECHMAIN 13:28
PROVIDERS: ATTEND Family Medicine
DX: I07.1 Rheumatic tricuspid insufficiency (principal); I27.20 Pulmonary hypertension, unspecified; I13.10 Hypertensive heart and chronic kidney disease without heart failure, with stage 1 through stage 4 chronic kidney disease, or unspecified chronic kidney disease
CPT/HCPCS: 93306

== ENCOUNTER → 2019-04-09 | Outpatient (CLI) | payer MEDICARE, BC ==
--- NOTE | 2019-04-09 16:25 | XR ---
EXAMINATION TYPE: XR chest 2V DATE OF EXAM: 04/09/2019 COMPARISON: 09/09/2017 INDICATION: COPD TECHNIQUE: Frontal and lateral views of the chest are obtained. FINDINGS: The heart size is normal. The pulmonary vasculature is normal. The lungs are clear. Hyperinflation is noted IMPRESSION: 1. No acute pulmonary process.
== END | disposition home or self-care (01) ==
LOC: RADXRMAIN 09:42
PROVIDERS: ATTEND Family Medicine
DX: J44.1 Chronic obstructive pulmonary disease with (acute) exacerbation (principal)
CPT/HCPCS: 71046

== ENCOUNTER 2020-02-06 10:22 | Inpatient (IN) | payer MEDICARE, BC ==
--- NOTE | 2020-02-06 10:57 | ED ---
GI Bleed HPI - General Chief complaint: GI Bleed Stated complaint: GI bleed Time Seen by Provider: 02/06/20 10:45 Source: patient, RN notes reviewed Mode of arrival: wheelchair Limitations: no limitations - History of Present Illness Initial comments: This is a 89-year-old male with a history of COPD was long-time smoker who states he had the onset this morning of coughing up bright red blood. This doesn't shortness of breath with it he denies any abdominal pain chest pain fevers chills sweats a prior phlegm production no prior episodes of this. No history of GI bleeding. No history of any other lung issues that he is aware of. No lightheadedness or dizziness no other modifying factors MD complaint: other - Related Data Home Medications Medication Instructions Recorded Confirmed Lovastatin [Mevacor] 20 mg PO DAILY 06/16/14 02/06/20 Calcium Carbonate [Calcium] 600 mg PO DAILY 09/09/17 02/06/20 Celecoxib [CeleBREX] 200 mg PO DAILY 02/06/20 02/06/20 Diltiazem HCl [Diltiazem HCl 24Hr 180 mg PO DAILY 02/06/20 02/06/20 ER (XR)] Multivitamins, Thera [Multivitamin 1 tab PO DAILY 02/06/20 02/06/20 (formulary)] Zinc 50 mg PO DAILY 02/06/20 02/06/20 traMADol HCL 50 mg PO QID PRN 02/06/20 02/06/20 Previous Rx's Medication Instructions Recorded Clopidogrel [Plavix] 75 mg PO DAILY #30 tab 09/10/17 Nitroglycerin Sl Tabs [Nitrostat] 0.4 mg SUBLINGUAL Q5M PRN #25 tab 09/10/17 Allergies Allergy/AdvReac Type Severity Reaction Status Date / Time No Known Allergies Allergy Verified 02/06/20 11:22 Review of Systems ROS Statement: Those systems with pertinent positive or pertinent negative responses have been documented in the HPI. ROS Other: All systems not noted in ROS Statement are negative. Past Medical History Past Medical History: Hyperlipidemia, Hypertension Additional Past Medical History / Comment(s): arthritis History of Any Multi-Drug Resistant Organisms: None Reported Past Surgical History: Hernia Repair, Prostate Surgery Additional Past Surgical History / Comment(s): cataract Past Anesthesia/Blood Transfusion Reactions: No Reported Reaction Past Psychological History: No Psychological Hx Reported Smoking Status: Former smoker Past Alcohol Use History: Daily Past Drug Use History: None Reported - Past Family History Father History Unknown: Yes Family Medical History: Unable to Obtain General Exam - General Exam Comments Initial Comments: This is a well-developed well-nourished awake alert oriented 3 male Limitations: no limitations General appearance: alert, in no apparent distress Head exam: Present: atraumatic, normocephalic, normal inspection Eye exam: Present: normal appearance, PERRL, EOMI. Absent: scleral icterus, conjunctival injection, periorbital swelling ENT exam: Present: normal exam, mucous membranes moist Neck exam: Present: normal inspection, full ROM. Absent: tenderness, meningismus, lymphadenopathy Respiratory exam: Present: decreased breath sounds (Decreased breath sounds on the right compared to the left). Absent: respiratory distress, wheezes, rales, rhonchi, stridor Cardiovascular Exam: Present: regular rate, normal rhythm, normal heart sounds. Absent: systolic murmur, diastolic murmur, rubs, gallop, clicks GI/Abdominal exam: Present: soft, normal bowel sounds. Absent: distended, tenderness, guarding, rebound, rigid Extremities exam: Present: normal inspection, full ROM, normal capillary refill. Absent: tenderness, pedal edema, joint swelling, calf tenderness Back exam: Present: normal inspection Neurological exam: Present: alert, oriented X3, CN II-XII intact Psychiatric exam: Present: normal affect, normal mood Skin exam: Present: warm, dry, intact, normal color. Absent: rash Course Vital Signs 02/06/20 02/06/20 10:29 11:07 Temperature 98.3 F Pulse Rate 90 Respiratory 18 20 Rate Blood Pressure 214/90 O2 Sat by Pulse 94 L Oximetry Medical Decision Making - Medical Decision Making I did discuss the findings with the patient. He does note that he's been having some exertional dyspnea recently which he had not mentioned earlier. No other symptoms we did discuss the findings she will be admitted to the hospital for inpatient evaluation and pulmonary consultation. Case is discussed with Dr. Johnson covering Dr. Castillo - Lab Data Result diagrams: 02/06/20 09:55 02/06/20 09:55 Lab Results 02/06/20 02/06/20 02/06/20 Range/Units 09:55 09:55 09:55 WBC 10.0 (3.8-10.6) k/uL RBC 5.07 (4.30-5.90) m/uL Hgb 14.8 (13.0-17.5) gm/dL Hct 45.2 (39.0-53.0) % MCV 89.2 (80.0-100.0) fL MCH 29.2 (25.0-35.0) pg MCHC 32.7 (31.0-37.0) g/dL RDW 13.6 (11.5-15.5) % Plt Count 345 (150-450) k/uL Neutrophils % 73 % Lymphocytes % 13 % Monocytes % 8 % Eosinophils % 3 % Basophils % 0 % Neutrophils # 7.3 (1.3-7.7) k/uL Lymphocytes # 1.3 (1.0-4.8) k/uL Monocytes # 0.8 (0-1.0) k/uL Eosinophils # 0.3 (0-0.7) k/uL Basophils # 0.0 (0-0.2) k/uL PT 9.6 (9.0-12.0) sec INR 0.9 (<1.2) APTT 24.5 (22.0-30.0) sec Sodium (137-145) mmol/L Potassium (3.5-5.1) mmol/L Chloride (98-107) mmol/L Carbon Dioxide (22-30) mmol/L Anion Gap mmol/L BUN (9-20) mg/dL Creatinine (0.66-1.25) mg/dL Est GFR (CKD-EPI)AfAm (>60 ml/min/1.73 sqM) Est GFR (CKD-EPI)NonAf (>60 ml/min/1.73 sqM) Glucose (74-99) mg/dL Plasma Lactic Acid Phil (0.7-2.0) mmol/L Calcium (8.4-10.2) mg/dL Magnesium (1.6-2.3) mg/dL Total Bilirubin (0.2-1.3) mg/dL AST (17-59) U/L ALT (4-49) U/L Alkaline Phosphatase (38-126) U/L Creatine Kinase (55-170) U/L Total Protein (6.3-8.2) g/dL Albumin (3.5-5.0) g/dL Blood Type Recheck No Previous Record Bld Type Recheck Status CABO Indicated Spec Expiration Date 02/09/2020 - 235402/06/20 02/06/20 Range/Units 09:55 09:55 WBC (3.8-10.6) k/uL RBC (4.30-5.90) m/uL Hgb (13.0-17.5) gm/dL Hct (39.0-53.0) % MCV (80.0-100.0) fL MCH (25.0-35.0) pg MCHC (31.0-37.0) g/dL RDW (11.5-15.5) % Plt Count (150-450) k/uL Neutrophils % % Lymphocytes % % Monocytes % % Eosinophils % % Basophils % % Neutrophils # (1.3-7.7) k/uL Lymphocytes # (1.0-4.8) k/uL Monocytes # (0-1.0) k/uL Eosinophils # (0-0.7) k/uL Basophils # (0-0.2) k/uL PT (9.0-12.0) sec INR (<1.2) APTT (22.0-30.0) sec Sodium 139 (137-145) mmol/L Potassium 4.3 (3.5-5.1) mmol/L Chloride 103 (98-107) mmol/L Carbon Dioxide 23 (22-30) mmol/L Anion Gap 13 mmol/L BUN 18 (9-20) mg/dL Creatinine 1.40 H (0.66-1.25) mg/dL Est GFR (CKD-EPI)AfAm 52 (>60 ml/min/1.73 sqM) Est GFR (CKD-EPI)NonAf 45 (>60 ml/min/1.73 sqM) Glucose 138 H (74-99) mg/dL Plasma Lactic Acid Phil 2.0 (0.7-2.0) mmol/L Calcium 9.8 (8.4-10.2) mg/dL Magnesium 2.4 H (1.6-2.3) mg/dL Total Bilirubin 0.6 (0.2-1.3) mg/dL AST 33 (17-59) U/L ALT 16 (4-49) U/L Alkaline Phosphatase 156 H (38-126) U/L Creatine Kinase 79 (55-170) U/L Total Protein 8.3 H (6.3-8.2) g/dL Albumin 4.5 (3.5-5.0) g/dL Blood Type Recheck Bld Type Recheck Status Spec Expiration Date - EKG Data -: EKG Interpreted by Me EKG shows normal: sinus rhythm EKG Comments: Sinus rhythm first-degree AV block with PACs noted rate was 92 NJ interval 2:30 QRS 102 QT/QTC 42/497 prolonged QT. Criteria for LVH. - Radiology Data Radiology results: report reviewed (I did review the imaging and report there is a large right pleural effusion that appears be new.), image reviewed Disposition Clinical Impression: Hemoptysis, Pleural effusion, right, Exertional dyspnea, Hypertension Disposition: [facility] Condition: Fair Referrals: Jose Castillo MD [Primary Care Provider] - 1-2 days
[2020-02-06 11:12] LABS: Basophils % (A) 0 %; Eosinophils # (A) 0.3 k/uL (0-0.7); Eosinophils % (A) 3 %; HCT 45.2 % (39.0-53.0); HGB 14.8 gm/dL (13.0-17.5); Lymphocytes # (A) 1.3 k/uL (1.0-4.8); Lymphocytes % (A) 13 %; MCH 29.2 pg (25.0-35.0); MCHC 32.7 g/dL (31.0-37.0); MCV 89.2 fL (80.0-100.0); Mean Platelet Volume 7.8; Monocytes # (A) 0.8 k/uL (0-1.0); Monocytes % (A) 8 %; Neutrophils # (A) 7.3 k/uL (1.3-7.7); Neutrophils % (A) 73 %; Platelet Count 345 k/uL (150-450); RBC 5.07 m/uL (4.30-5.90); RDW 13.6 % (11.5-15.5)
[2020-02-06 11:16] LABS: INR 0.9 (<1.2); Partial Thromboplastin Time 24.5 sec (22.0-30.0); Prothrombin Time 9.6 sec (9.0-12.0)
--- NOTE | 2020-02-06 11:18 | XR ---
EXAMINATION TYPE: XR chest 2V DATE OF EXAM: 02/06/2020 HISTORY: difficulty breathing. REFERENCE: Previous study dated 04/09/2019. FINDINGS: There has been interval development of a large right pleural effusion. Some of this is locu lated. There is associated relaxation atelectasis. The right lung is clear. Heart size is obscured. IMPRESSION: INTERVAL DEVELOPMENT OF A LARGE, RIGHT-SIDED PLEURAL EFFUSION.
--- NOTE | 2020-02-06 11:19 | XR ---
EXAMINATION TYPE: XR KUB , ONE VIEW DATE OF EXAM ORDERED: 02/06/2020 HISTORY: Possible GI bleed. COMPARISON: None. FINDINGS: There is opacification of the right lower thorax. The left lung base is clear. The abdominal gas pattern is normal. There is no evidence of obstruction or free air. There are moder ate degenerative changes in the lumbar spine. There is a mild dextroscoliosis. IMPRESSION: 1. INCREASED OPACITY OF THE RIGHT HEMITHORAX IN KEEPING WITH A RIGHT-SIDED EFFUSION. 2. NO DEFINITE ACUTE INTRA-ABDOMINAL ABNORMALITY.
[2020-02-06 11:27] LABS: Albumin 4.5 g/dL (3.5-5.0); Calcium 9.8 mg/dL (8.4-10.2); Magnesium 2.4 mg/dL (1.6-2.3); Potassium 4.3 mmol/L (3.5-5.1); Total Bilirubin 0.6 mg/dL (0.2-1.3); Total Protein 8.3 g/dL (6.3-8.2)
[2020-02-06] MEDS ORDERED: NALOXONE 0.4 MG/ML 1 ML VIAL IV PRN (11:40)
[2020-02-06] MEDS ORDERED: NITROGLYCERIN SL TABS 0.4 MG TAB SUBLINGUAL PRN (11:42)
[2020-02-06] MEDS ORDERED: SODIUM CHLORIDE 0.9% 500 ML 500 ML IV STA (11:51)
[2020-02-06] MEDS ORDERED: hydrALAZINE HCL 20 MG/ML 1 ML VIAL IVP STA (11:51)
[2020-02-06] MEDS: SODIUM CHLORIDE 0.9% 1,000 ML IV SCH (12:05)
[2020-02-06 13:49] LABS: Appearance,Urine Clear (Clear); Color,Urine Yellow
[2020-02-06 13:50] LABS: Bilirubin,Urine Negative (Negative); Blood,Urine Negative (Negative); Glucose,Urine (UA) Negative (Negative); Ketones,Urine Negative (Negative); Leukocyte Esterase,Urine Negative (Negative); Nitrite,Urine Negative (Negative); Protein,Urine Negative (Negative); Specific Gravity,Urine 1.005 (1.001-1.035); Urobilinogen,Urine <2.0 mg/dL (<2.0)
--- NOTE | 2020-02-06 13:50 | US ---
EXAMINATION TYPE: US chest DATE OF EXAM: 02/06/2020 COMPARISON: chest xray CLINICAL HISTORY: right pleural effusion. TECHNIQUE: Targeted ultrasound of the posterior lower right hemithorax EXAM MEASUREMENTS: Right Pleural Effusion pocket size: 16.4 cm Right skin surface to fluid distance: 1.0 cm There are echoes within the pocket. Right side marked for possible thoracentesis outside the dept. Pulmonologists are able to review the images in the patient?s EMR. IMPRESSIONS: COMPLEX RIGHT PLEURAL EFFUSION.
[2020-02-06] MEDS ORDERED: LABETALOL 200 MG TAB PO STA (14:09)
[2020-02-06] MEDS ORDERED: LIDOCAINE 1% INJ 10MG/ML (20 ML MDV) SQ ONE (16:50)
[2020-02-06] MEDS: traMADol 50 MG TAB PO PRN (20:10)
--- NOTE | 2020-02-06 23:11 | P.HPIM ---
History of Present Illness H&P Date: 02/06/20 Chief Complaint: Dyspnea Patient is a 89-year-old male with a known history of hypertension, hyperlipidemia, emphysema, previous history of smoking quit several years ago, history of prostate cancer and had prostate seeded came to ER with the complaints of coughing up bright red blood which he noticed that this morning. Patient was also having exertional dyspnea which is getting worse. Denies any sputum production. No fever no chills. Denies any hematemesis or melena. No headache or dizziness or lightheadedness. no leg swelling. Patient states that he lost about 15 to 20 pounds in the last couple of months. Chest x-ray showed interval development of a large right-sided pleural effusion KUB x-ray showed increased opacity of the right hemothorax keeping with the right-sided effusion. No definite acute intra-abdominal abnormality. EKG showed sinus rhythm with first-degree AV block Chest ultrasound was done complex right pleural effusion Laboratory data reviewed BUN 18 and creatinine 1.4 troponin less than 0.012 and proBNP 731 UA negative Review of Systems Constitutional: Patient denies any fever or chills . No generalized weakness or weight loss. Abdomen: Patient denied nausea vomiting and diarrhea and abdominal pain. Cardiovascular: Patient denies any chest pain or short of breath no palpitations. Respiratory: patient denied any cough or production. +shortness of breath Neurologic: Patient denied any numbness or tingling headache. Musculoskeletal: Patient denies any complaints of joint swelling or deformity. Skin: Negative Psychiatric: Negative Endocrine: No heat or cold intolerance. No recent weight gain. Genitourinary: No dysuria or hematuria. All other 14 point ROS negative except the above Past Medical History Past Medical History: Hyperlipidemia, Hypertension Additional Past Medical History / Comment(s): arthritis, emphysema "a touch" History of Any Multi-Drug Resistant Organisms: None Reported Past Surgical History: Hernia Repair, Prostate Surgery Additional Past Surgical History / Comment(s): bilat cataract removal with lens implants, prostrate CA and had prostate seeded. Past Anesthesia/Blood Transfusion Reactions: No Reported Reaction Past Psychological History: No Psychological Hx Reported Smoking Status: Former smoker Past Alcohol Use History: Daily Additional Past Alcohol Use History / Comment(s): 2-3 beers/day Past Drug Use History: None Reported - Past Family History Father History Unknown: Yes Family Medical History: Unable to Obtain Medications and Allergies Home Medications Medication Instructions Recorded Confirmed Type Lovastatin [Mevacor] 20 mg PO DAILY 06/16/14 02/06/20 History Calcium Carbonate [Calcium] 600 mg PO DAILY 09/09/17 02/06/20 History Clopidogrel [Plavix] 75 mg PO DAILY #30 tab 09/10/17 02/06/20 Rx Nitroglycerin Sl Tabs [Nitrostat] 0.4 mg SUBLINGUAL Q5M PRN #25 tab 09/10/17 02/06/20 Rx Celecoxib [CeleBREX] 200 mg PO DAILY 02/06/20 02/06/20 History Diltiazem HCl [Diltiazem HCl 24Hr 180 mg PO DAILY 02/06/20 02/06/20 History ER (XR)] Multivitamins, Thera [Multivitamin 1 tab PO DAILY 02/06/20 02/06/20 History (formulary)] Zinc 50 mg PO DAILY 02/06/20 02/06/20 History traMADol HCL 50 mg PO QID PRN 02/06/20 02/06/20 History Allergies Allergy/AdvReac Type Severity Reaction Status Date / Time No Known Allergies Allergy Verified 02/06/20 11:22 Physical Exam Vitals: Vital Signs Temp Pulse Pulse Resp BP BP Pulse Ox 02/06/20 16:23 95 02/06/20 16:11 153/65 02/06/20 14:45 97.9 F 89 19 220/90 98 02/06/20 14:41 97.9 F 94 18 217/99 96 02/06/20 13:00 92 20 181/94 98 02/06/20 12:54 92 20 179/101 98 02/06/20 12:00 87 20 184/104 99 02/06/20 11:33 87 20 184/104 99 02/06/20 11:07 20 02/06/20 10:33 18 02/06/20 10:29 98.3 F 90 18 214/90 94 L Intake and Output 02/06/20 02/06/20 02/06/20 06:59 14:59 22:59 Other: Weight 80.286 kg PHYSICAL EXAMINATION: Patient is lying in the bed comfortably, no acute distress, awake alert and oriented.. HEENT: Normocephalic. Neck is supple. Pupils reactive. Nostrils clear. Oral cavity is moist. Ears reveal no drainage. Neck reveals no JVD, carotid bruits, or thyromegaly. CHEST EXAMINATION: Trachea is central. Symmetrical expansion.Right basilar diminished air entry Lung barr clear to auscultation and percussion. CARDIAC: Normal S1, S2 with no gallops. No murmurs ABDOMEN: Soft. Bowel sounds normal. No organomegaly. No abdominal bruits. Extremities: reveal no edema. No clubbing or cyanosis Neurologically awake, alert, oriented x3 with well-coordinated movements. No focal deficits noted Skin: No rash or skin lesions. Psychiatric: Coperative. Nonsuicidal Musculoskeletal: No joint swelling or deformity. Normal range of motion. Results CBC & Chem 7: 02/06/20 09:55 02/06/20 09:55 Labs: Abnormal Lab Results - Last 24 Hours (Table) 02/06/20 Range/Units 09:55 Creatinine 1.40 H (0.66-1.25) mg/dL Glucose 138 H (74-99) mg/dL Magnesium 2.4 H (1.6-2.3) mg/dL Alkaline Phosphatase 156 H (38-126) U/L Total Protein 8.3 H (6.3-8.2) g/dL Thrombosis Risk Factor Assmnt - DVT/VTE Prophylaxis DVT/VTE Prophylaxis: Mechanical Prophylaxis ordered - Choose All That Apply Any of the Below Risk Factors Present?: Yes Each Factor Represents 1 point: Obesity (BMI >25) Other Risk Factors: Yes Each Risk Factor Represents 3 Points: Age 75 years or older Thrombosis Risk Factor Assessment Total Risk Factor Score: 4 Thrombosis Risk Factor Assessment Level: Moderate Risk Assessment and Plan Assessment: Worsening exertional dyspnea due to large right-sided pleural effusion. Malignant effusion cannot be excluded. Hypertension Hyperlipidemia COPD/emphysema Previous history of smoking Daily alcohol use History of prostate cancer and had prostate seed placement Osteoarthritis DVT prophylaxis Plan: Patient will be continued on home blood pressure medications and pain management. Breathing treatments as needed. Pulmonary was consulted due to hemoptysis and right pleural effusion. Chest ultrasound was ordered. Patient will need paracentesis and fluid cell count/differential, cytopathology and culture. Continue with oxygen therapy as needed and further recommendations based on the clinical course. Time with Patient: Greater than 30
[2020-02-07] MEDS: traMADol 50 MG TAB PO PRN ×3 (04:55→19:45)
[2020-02-07] MEDS: CALCIUM CARBONATE 500 MG CHEWABLE PO SCH (09:30)
[2020-02-07] MEDS: MULTIVITAMINS, THERA 1 EACH TAB PO SCH (09:30)
[2020-02-07] MEDS: ATORVASTATIN 10 MG TAB PO SCH (09:30)
[2020-02-07] MEDS: DILTIAZEM CD 180 MG CAP.ER.24H PO SCH (09:30)
[2020-02-07] MEDS: ZINC SULFATE 220 MG CAP PO SCH (09:30)
[2020-02-07] MEDS: SODIUM CHLORIDE 0.9% 1,000 ML IV SCH (11:18)
[2020-02-07 12:05] VITALS: BMI 27.7
--- NOTE | 2020-02-07 12:33 | PCN ---
PROCEDURE NOTE PROCEDURE PERFORMED: Right-sided thoracentesis. PREOP DIAGNOSIS: Right pleural effusion. POSTOP DIAGNOSIS: Right pleural effusion. OPERATORS: Dr. Norris and Dr. Norris. A time-out was completed verifying correct patient, procedure, site, positioning , and implant (s) or special equipment if applicable. Ultrasound guidance was used and appropriate fluid pocket was identified and marked. Patient was positioned, prepped and draped in usual sterile fashion. Lidocaine was used to anesthetize the area. A Thoracentesis catheter was introduced into the pleural space and fluid was removed. Blood loss was none. A chest x-ray was ordered to evaluate for pneumothorax. Total Fluid Removed 2.4 L Color of Fluid: Dark yellow. Fluid was sent for appropriate laboratory tests. Patient tolerated the procedure well and there were no complications. The fluid will be sent for analysis including chemistry, cytology and microbiology. Post thoracentesis chest x-ray was ordered. There was informed consent and universal timeout. There was no immediate complication. MMODL / IJN: [id number] /
[2020-02-07] MEDS ORDERED: RX INFO: IV CONTRAST WAS GIVEN 1 EACH MISC MISCELLANE PRN (13:02)
--- NOTE | 2020-02-07 13:11 | XR ---
EXAMINATION TYPE: XR chest 1V portable DATE OF EXAM: 02/07/2020 HISTORY: eval following thoracentesis. REFERENCE: Previous study dated 02/06/2020. FINDINGS: There is worsening opacity of the right hemithorax. There is deviation of the mediastinal s tructures towards the right. Left lung appears clear. Heart size is obscured. IMPRESSION: WORSENING OPACITY RIGHT HEMITHORAX LIKELY REPRESENTS A COMBINATION OF PLEURAL FLUID AND ATELECTASIS. THERE IS SHIFT OF THE MEDIASTINAL STRUCTURES.
--- NOTE | 2020-02-07 15:28 | CT ---
EXAMINATION TYPE: CT chest w con DATE OF EXAM: 02/07/2020 COMPARISON: Chest x-ray earlier today an older studies. HISTORY: Right chest mass? CT DLP: 487.3 mGycm. Automated Exposure Control for Dose Reduction was Utilized. TECHNIQUE: CT scan of the thorax is performed following with IV Contrast, patient injected with 80 m L of Isovue 300. FINDINGS: LUNGS: Persistent small to moderate size right pleural fluid collection that does not completely laye r dependently with adjacent compressive atelectasis. There is right-sided volume loss with mediastina l shift and elevated right hemidiaphragm. There is abrupt occlusion at level of right main stem bronc hus suggesting mucus plugging and/or other endobronchial lesion. Right lung atelectatic changes shows passing vessels except near level of right hilum were suspicious for underlying mass filling the zyg oesophageal recess and causing mass effect on the right pulmonary artery. Left lung shows mild peripheral interstitial edema and/or fibrotic change on background mild underlyi ng emphysematous change without significant pleural effusion. MEDIASTINUM: There are suspicious thoracic lymph nodes. For reference paratracheal lymph node measure s 1.7 x 1.5 cm axial image 40. There are prominent but subcentimeter anterior superior mediastinal al avery with prevascular and AP window lymph nodes . No cardiomegaly or pericardial effusion is seen. Co ronary artery calcification and/or stents, correlate clinically. OTHER: Mild to moderate generalized pancreatic atrophy. Some cortical thinning in visualized portion of both kidneys. Multilevel moderate to severe spurring in the spine with scoliotic curvature. IMPRESSION: There is almost certainly central right hilar obstructing mass or neoplasm with associat ed thoracic adenopathy. Bronchoscopy for sampling can BE performed and/or PET/CT correlation. Backgro und mild to moderate underlying emphysematous and pulmonary fibrotic changes with asymmetric small to moderate-sized nonsimple right pleural effusion and right-sided volume loss with obstructive atelect atic change all are noted.
[2020-02-07] MEDS: LISINOPRIL 20 MG TAB PO SCH (16:28)
[2020-02-07] MEDS: FUROSEMIDE 20 MG TAB PO SCH (16:28)
[2020-02-07 16:34] LABS: Appearance,BF Hazy; RBC, Body Fluid 60 /uL
[2020-02-07 16:35] LABS: Nucleated Cells, Body Fluid 615 /uL
[2020-02-07 16:36] LABS: Mononuclear WBC,Body Fluid 95 %; Polynuclear WBC,Body Fluid 5 %; Total Cells Counted,Body Fluid 100
--- NOTE | 2020-02-08 01:20 | P.PN ---
Subjective Progress Note Date: 02/07/20 Principal diagnosis: Pleural effusion Patient is a 89-year-old male with a known history of hypertension, hyperlipidemia, emphysema, previous history of smoking quit several years ago, history of prostate cancer and had prostate seeded came to ER with the complaints of coughing up bright red blood which he noticed that this morning. Patient was also having exertional dyspnea which is getting worse. Denies any sputum production. No fever no chills. Denies any hematemesis or melena. No headache or dizziness or lightheadedness. no leg swelling. Patient states that he lost about 15 to 20 pounds in the last couple of months. Chest x-ray showed interval development of a large right-sided pleural effusion KUB x-ray showed increased opacity of the right hemothorax keeping with the right-sided effusion. No definite acute intra-abdominal abnormality. EKG showed sinus rhythm with first-degree AV block Chest ultrasound was done complex right pleural effusion Laboratory data reviewed BUN 18 and creatinine 1.4 troponin less than 0.012 and proBNP 731 UA negative 02/07/2020 Patient is currently lying in bed comfortably. Blood pressure is uncontrolled and will be started on lisinopril and Lasix 20 mg daily. Patient was seen by pulmonary and is status post right thoracentesis CT chest was ordered. No complaints of chest pain or worsening shortness of air. No nausea vomiting or abdominal pain. No diarrhea. No other acute overnight issues. Follow-up fluid analysis and cytology. Current medications reviewed. Objective - Vital Signs Vital signs: Vital Signs Temp 98.1 F 02/07/20 07:00 Pulse 50 L 02/07/20 07:00 Resp 18 02/07/20 07:00 BP 170/76 02/07/20 07:00 Pulse Ox 99 02/07/20 07:00 Intake & Output 02/06/20 02/07/20 02/07/20 18:59 06:59 18:59 Intake Total 60 Balance 60 Weight 80.286 kg Intake: Intake, IV Titration 60 Amount Sodium Chloride 0.9% 1, 60 000 ml @ 20 mls/hr IV . Q24H [facility] Rx#:[id number] Other: Voiding Method Toilet # Voids 2 - Exam PHYSICAL EXAMINATION: Patient is lying in the bed comfortably, no acute distress, awake alert and oriented.. HEENT: Normocephalic. Neck is supple. Pupils reactive. Nostrils clear. Oral cavity is moist. Ears reveal no drainage. Neck reveals no JVD, carotid bruits, or thyromegaly. CHEST EXAMINATION: Trachea is central. Symmetrical expansion.Right basilar crackles otherwise Lung barr clear to auscultation and percussion. CARDIAC: Normal S1, S2 with no gallops. No murmurs ABDOMEN: Soft. Bowel sounds normal. No organomegaly. No abdominal bruits. Extremities: reveal no edema. No clubbing or cyanosis Neurologically awake, alert, oriented x3 with well-coordinated movements. No focal deficits noted Skin: No rash or skin lesions. Psychiatric: Coperative. Nonsuicidal Musculoskeletal: No joint swelling or deformity. Normal range of motion. - Labs CBC & Chem 7: 02/06/20 09:55 02/06/20 09:55 Labs: Abnormal Lab Results - Last 24 Hours (Table) 02/06/20 Range/Units 09:55 Creatinine 1.40 H (0.66-1.25) mg/dL Glucose 138 H (74-99) mg/dL Magnesium 2.4 H (1.6-2.3) mg/dL Alkaline Phosphatase 156 H (38-126) U/L Total Protein 8.3 H (6.3-8.2) g/dL Microbiology - Last 24 Hours (Table) 02/06/20 11:15 Urine Culture - Preliminary Urine,Voided Assessment and Plan Assessment: Worsening exertional dyspnea due to large right-sided pleural effusion. Ma lignant effusion cannot be excluded. Status post right thoracentesis. un controlled Hypertension Hyperlipidemia COPD/emphysema Previous history of smoking Daily alcohol use History of prostate cancer and had prostate seed placement Osteoarthritis DVT prophylaxis Plan: Patient will be continued on home blood pressure medications and pain management. Breathing treatments as needed. Pulmonary was consulted due to hemoptysis and right pleural effusion. Patient is status post thoracentesis. Follow fluid cell count/differential, cytopathology and culture. Continue with oxygen therapy as needed and further recommendations based on the clinical course.
[2020-02-08] MEDS: traMADol 50 MG TAB PO PRN ×2 (04:27→20:17)
--- NOTE | 2020-02-08 05:24 | CONS ---
CONSULTATION PULMONARY/CRITICAL CARE CONSULTATION: DATE OF CONSULTATION: February 07, 2020. This is a pleasant 89-year-old gentleman with a history of COPD, who was apparently a long-time smoker who states that more recently, he has been coughing up blood. The blood has been bright red. In addition to coughing up blood, the patient was found to have significant shortness of breath and complained of shortness of breath. He denied any chest pain or pressure. Denied any nausea, vomiting, diarrhea, or abdominal pain. There was no fever or chills. Anyway, I am asked to see him for this reason. A chest x-ray revealed complete opacification of the right lung and the patient underwent thoracentesis today and 2.4 L of dark yellow fluid was removed from the right pleural space. It could be quite suspicious for malignancy. The patient was a smoker as mentioned. MEDICATIONS: Home medications are reviewed. He is on Mevacor, calcium carbonate, Celebrex, diltiazem, multivitamins, zinc, tramadol, Plavix, nitroglycerin tablet. ALLERGIES: Allergies are denied. PAST MEDICAL HISTORY: His past medical history is positive for hyperlipidemia and hypertension. He denies a known history of underlying lung disease. SURGICAL HISTORY: Surgical history includes prostate surgery and hernia repair. He has also had cataract surgery. SOCIAL HISTORY: Positive for previous tobacco use. He probably smoked for a total of 30 or 40 years many years back. He admits to drinking alcohol daily. Denies illicit drug use. FAMILY HISTORY: Unknown. REVIEW OF SYSTEMS: CONSTITUTIONAL: Negative. NEUROLOGIC: Negative. HEENT: Negative. CARDIOVASCULAR: Negative. PULMONARY: Hemoptysis and shortness of breath. GI: Negative. : Negative. RHEUMATOLOGIC: Negative. IMMUNOLOGIC: Negative. ENDOCRINOLOGIC: Negative. DERMATOLOGIC: Negative. PHYSICAL EXAMINATION: VITAL SIGNS: Current vital signs are reviewed. Temperature 97.8, heart rate 69, respiratory rate 18, blood pressure 191/76, mean 114, room air saturation 98%. GENERAL: The patient appears not to be in any distress whatsoever. HEENT: Examination is grossly unremarkable. NECK: Supple. Full range of motion. No adenopathy. Neck veins flat. CARDIOVASCULAR: Examination reveals regular rhythm and rate. S1, S2 normal. Heart sounds are distant and somewhat muffled. LUNGS: Examination reveals clear breath sounds on the left. On the right, there are distant breath sounds. There is dullness on percussion on the right side. ABDOMEN: Soft. Bowel sounds are heard. EXTREMITIES: Are intact. No cyanosis, clubbing, or edema. SKIN: Without rash. NEUROLOGIC: Examination is brief but nonfocal. LABS: Labs are reviewed. CBC is completely normal. PT/INR and PTT are all normal. Sodium, potassium, chloride, CO2 normal. Anion gap 13. BUN and creatinine were 18 and 1.4. Glucose 138, magnesium 2.4, alkaline phosphate 156. N terminal proBNP 731. Troponin was normal. Total protein 8.3. Microbiologic studies are pending or negative. Chest x-ray shows complete opacification of the right lung. KUB x-ray shows increased opacity of the right hemithorax in keeping with the right- sided effusion. No definitive intraabdominal abnormality is noted. Ultrasound of the chest reveals a large right-sided effusion measuring 16.4 cm on the right side. Subsequent chest x-ray after the thoracentesis shows worsening opacity right hemithorax, likely representing a combination of pleural fluid and atelectasis. There is shift of the mediastinal structures. CT scan was ordered. ASSESSMENT: 1. New onset massive right-sided effusion, status post thoracentesis with 2.[address] scan ordered. Rule out lung cancer. 2. Possible underlying chronic obstructive pulmonary disease from previous tobacco use. 3. Hyperlipidemia. 4. Hypertension. 5. History of arthritis. 6. History of cataract, status post cataract surgery. 7. History of hernia repair. 8. History of prostate cancer. 9. History of prostate surgery. PLAN: The patient had a large volume thoracentesis today. Will wait for fluid analysis. A CT scan was ordered. The fluid was very dark colored. It appears to probably be an exudate. I would not be surprised if we find malignancy in this patient. Additional recommendations and suggestions are forthcoming. MMODL / IJN: [id number] / MTDD
[2020-02-08] MEDS: MULTIVITAMINS, THERA 1 EACH TAB PO SCH (07:58)
[2020-02-08] MEDS: FUROSEMIDE 20 MG TAB PO SCH (07:58)
[2020-02-08] MEDS: FAMOTIDINE 20 MG TAB PO SCH (07:58)
[2020-02-08] MEDS: ATORVASTATIN 10 MG TAB PO SCH (07:59)
[2020-02-08] MEDS: ZINC SULFATE 220 MG CAP PO SCH (07:59)
[2020-02-08] MEDS: DILTIAZEM CD 180 MG CAP.ER.24H PO SCH (07:59)
[2020-02-08] MEDS: CALCIUM CARBONATE 500 MG CHEWABLE PO SCH (07:59)
[2020-02-08] MEDS: LISINOPRIL 20 MG TAB PO SCH (07:59)
--- NOTE | 2020-02-08 09:03 | P.PN ---
Subjective From records: Patient is a 89-year-old male with a known history of hypertension, hyperlipidemia, emphysema, previous history of smoking quit several years ago, history of prostate cancer and had prostate seeded came to ER with the complaints of coughing up bright red blood which he noticed that this morning. Patient was also having exertional dyspnea which is getting worse. Denies any sputum production. No fever no chills. Denies any hematemesis or melena. No headache or dizziness or lightheadedness. no leg swelling. Patient states that he lost about 15 to 20 pounds in the last couple of months. Chest x-ray showed interval development of a large right-sided pleural effusion KUB x-ray showed increased opacity of the right hemothorax keeping with the right-sided effusion. No definite acute intra-abdominal abnormality. EKG showed sinus rhythm with first-degree AV block Chest ultrasound was done complex right pleural effusion Laboratory data reviewed BUN 18 and creatinine 1.4 troponin less than 0.012 and proBNP 731 UA negative 02/07/2020 Patient is currently lying in bed comfortably. Blood pressure is uncontrolled and will be started on lisinopril and Lasix 20 mg daily. Patient was seen by pulmonary and is status post right thoracentesis CT chest was ordered. No complaints of chest pain or worsening shortness of air. No nausea vomiting or abdominal pain. No diarrhea. No other acute overnight issues. Follow-up fluid analysis and cytology. Subjective 02/08/2020 This is a pleasant 89 years old male who presents on 02/05 because of hemoptysis and coughing. He underwent thoracocentesis by Dr. Meneses yesterday. Also CAT scan of the chest was showing right main bronchus occlusion with a mucous/lesion, with possible right lung mass and mediastinal lymphadenopathy This morning he is alert and awake, no dyspnea. Little cough. No other complaints. Vitals are stable, blood pressure on the high side 172/74 Creatinine is 1.4. Odontogenic labs this morning. His on Cardizem 180 mg, lisinopril 20 mg, we going to add hydralazine, no beta monroe because of bradycardia Review of systems CONSTITUTIONAL: No fever, no malaise, no fatigue. HEENT: No recent visual problems or hearing problems. Denied any sore throat. CARDIOVASCULAR: No orthopnea, PND, no palpitations, no syncope. PULMONARY: No shortness of breath, no cough, no hemoptysis. GASTROINTESTINAL: No diarrhea, no nausea, no vomiting, no abdominal pain. Normoactive bowel sounds. NEUROLOGICAL: No headaches, no weakness, no numbness. HEMATOLOGICAL: Denies any bleeding or petechiae. GENITOURINARY: Denies any burning micturition, frequency, or urgency. MUSCULOSKELETAL/RHEUMATOLOGICAL: Denies any joint pain, swelling, or any muscle pain. ENDOCRINE: Denies any polyuria or polydipsia. Active Medications Generic Name Dose Route Start Last Admin Trade Name Freq PRN Reason Stop Dose Admin Atorvastatin Calcium 10 mg 02/07/20 09:00 02/08/20 07:59 Lipitor PO 10 mg DAILY GEORGES Administration Calcium Carbonate/Glycine 500 mg 02/07/20 09:00 02/08/20 07:59 Tums PO 500 mg DAILY GEORGES Administration Diltiazem HCl 180 mg 02/07/20 09:00 02/08/20 07:59 Cardizem Cd PO 180 mg DAILY GEORGES Administration Famotidine 20 mg 02/08/20 09:00 02/08/20 07:58 Pepcid PO 20 mg DAILY GEORGES Administration Furosemide 20 mg 02/07/20 15:30 02/08/20 07:58 Lasix PO 20 mg DAILY GEORGES Administration Hydralazine HCl 25 mg 02/08/20 09:00 Apresoline PO BID GEORGES Sodium Chloride 1,000 mls @ 20 mls/hr 02/06/20 11:45 02/07/20 11:18 Saline 0.9% IV 20 mls/hr .Q24H GEORGES Administration Lisinopril 20 mg 02/07/20 15:15 02/08/20 07:59 Zestril PO 20 mg DAILY GEORGES Administration Miscellaneous Information 1 each 02/07/20 13:02 Rx Info: Iv Contrast Was Given MISCELLANE 02/09/20 13:03 DAILY PRN Per Protocol Multivitamins 1 each 02/07/20 09:00 02/08/20 07:58 Theragran PO 1 each DAILY GEORGES Administration Naloxone HCl 0.2 mg 02/06/20 11:40 Narcan IV Q2M PRN Opioid Reversal Nitroglycerin 0.4 mg 02/06/20 11:42 Nitrostat SUBLINGUAL Q5M PRN Chest Pain Tramadol HCl 50 mg 02/06/20 11:42 02/08/20 04:27 Ultram PO 50 mg QID PRN Administration Pain Zinc Sulfate 220 mg 02/07/20 09:00 02/08/20 07:59 Orazinc PO 220 mg DAILY GEROGES Administration Objective - Vital Signs Vital signs: Vital Signs Temp 97.9 F 02/08/20 07:13 Pulse 65 02/08/20 07:13 Resp 16 02/08/20 07:13 BP 172/74 02/08/20 07:13 Pulse Ox 99 02/08/20 07:13 Intake & Output 02/07/20 02/08/20 02/08/20 18:59 06:59 18:59 Weight 80.286 kg Other: Voiding Method Toilet # Voids 3 3 - Exam GENERAL: The patient is alert and oriented x3, not in any acute distress. Well developed, well nourished. HEENT: Pupils are round and equally reacting to light. EOMI. No scleral icterus. No conjunctival pallor. Normocephalic, atraumatic. No pharyngeal erythema. No thyromegaly. CARDIOVASCULAR: S1 and S2 present. No murmurs, rubs, or gallops. PULMONARY: Chest is clear to auscultation, no wheezing or crackles. ABDOMEN: Soft, nontender, nondistended, normoactive bowel sounds. No palpable organomegaly. MUSCULOSKELETAL: No joint swelling or deformity. EXTREMITIES: No cyanosis, clubbing, or pedal edema. NEUROLOGICAL: Gross neurological examination did not reveal any focal deficits. SKIN: No rashes. no petechiae. - Labs CBC & Chem 7: 02/06/20 09:55 02/06/20 09:55 Labs: Microbiology - Last 24 Hours (Table) 02/07/20 12:10 Gram Stain - Preliminary Pleural Fluid Body Fluid Culture - Preliminary 02/07/20 12:10 Acid Fast Bacilli Culture - Preliminary Pleural Fluid 02/07/20 12:10 Fungal Culture - Preliminary Pleural Fluid 02/07/20 10:15 Gram Stain - Preliminary Sputum Sputum Culture - Preliminary 02/06/20 11:15 Urine Culture - Preliminary Urine,Voided Assessment and Plan Assessment: Worsening exertional dyspnea due to large right-sided pleural effusion. Malignant effusion cannot be excluded. Status post right thoracentesis. Right main bronchus occlusion with mucous/lesion with possible right lung mass and mediastinal lymphadenopathy uncontrolled Hypertension Hyperlipidemia COPD/emphysema Previous history of smoking Daily alcohol use History of prostate cancer and had prostate seed placement Osteoarthritis DVT prophylaxis Plan: This is a pleasant 89 years old male who presents with a right pleural effusion and lung mass. Status post thoracocentesis. Follow-up results. Follow-up pulmonary recommendation or the case. Patient is informed about the findings and he verbalized understanding. Follow-up creatinine and continue with Cardizem, lisinopril and add hydralazine 25 mg, monitor blood pressure Labs and medication were reviewed.. Continue same treatment. Continue with symptomatic treatment. Resume home medication. Monitor lytes and vitals. DVT and GI prophylaxis. Further recommendations of the clinical course of the patient DVT prophylaxis: no Subcutaneous heparin in view of hemoptysis GI Prophylaxis: Pepcid Prognosis is guarded
[2020-02-08 09:32] LABS: Basophils % (A) 0 %; Eosinophils # (A) 0.2 k/uL (0-0.7); Eosinophils % (A) 2 %; HCT 43.8 % (39.0-53.0); HGB 13.6 gm/dL (13.0-17.5); Hypochromasia Slight; Lymphocytes # (A) 0.9 k/uL (1.0-4.8); Lymphocytes % (A) 9 %; MCH 28.3 pg (25.0-35.0); MCHC 31.1 g/dL (31.0-37.0); MCV 90.9 fL (80.0-100.0); Mean Platelet Volume 7.7; Monocytes # (A) 0.8 k/uL (0-1.0); Monocytes % (A) 8 %; Neutrophils % (A) 79 %; Platelet Count 356 k/uL (150-450); RBC 4.82 m/uL (4.30-5.90); WBC 10.1 k/uL (3.8-10.6)
[2020-02-08 09:54] LABS: Calcium 9.4 mg/dL (8.4-10.2); Potassium 3.9 mmol/L (3.5-5.1)
[2020-02-08] MEDS: hydrALAZINE HCL 25 MG TAB PO SCH ×2 (10:20→20:17)
[2020-02-08] MEDS: SODIUM CHLORIDE 0.9% 1,000 ML IV SCH (10:20)
[2020-02-08 12:13] LABS: Glucose, BF Source Pleural Fluid; Glucose, Body Fluid 141 mg/dL; LDH, Body Fluid Source Pleural Fluid; Total Protein, Body Fluid 4400 mg/dL
--- NOTE | 2020-02-08 15:24 | P.PN ---
Subjective Progress Note Date: 02/08/20 Principal diagnosis: New-onset massive right-sided effusion, status post thoracentesis with removal of 2.4 L of pleural fluid, rule out lung cancer On 02/08/2020 patient seen in follow-up on medical floor, he is status post right-sided thoracentesis with removal of 2.4 L of pleural fluid and cytology is still pending, yesterday CT of the chest revealed central right hilar obs tructing mass or neoplasm with associated thoracic adenopathy and bronchoscopy with biopsies was recommended. Patient is on 3 L of oxygen the pulse ox of 99%, he is breathing quite a bit easier, lung sounds reveal diminished breath sounds at the right base, no fever or chills. Patient remains on daily dose of oral Lasix. Today's labs have been reviewed, white blood cell, 7.1, hemoglobin is 13.6, electrolytes were within normal limits, creatinine slightly improved and down to 1.27. Urinalysis was negative, coronary burst PCR was negative, pleural fluid analysis revealed exudative fluid with pleural fluid protein content of 4.4 g. Gram stain of the pleural fluid showed many gram-positive cocci, of different morphologies, and many gram-positive bacilli. Final cultures pending. No altered mentation, patient is sitting up in the chair, calm and comfortable, he is eating lunch. We spoke to the patient and his son regarding possibility of bronchoscopy with biopsies for suspicion of endobronchial malignancy in the right lung causing volume loss, and postobstructive changes. The patient and his son both agreeable to proceed with bronchoscopy and biopsies tomorrow. Objective - Vital Signs Vital signs: Vital Signs Temp 97.6 F 02/08/20 13:57 Pulse 66 02/08/20 13:57 Resp 16 02/08/20 13:57 BP 183/79 02/08/20 13:57 Pulse Ox 99 02/08/20 13:57 Intake & Output 02/07/20 02/08/20 02/08/20 18:59 06:59 18:59 Weight 80.286 kg Other: Voiding Method Toilet # Voids 3 3 - Exam GENERAL EXAM: Alert, very pleasant 89-year-old white male, on 3 L of oxygen and the pulse ox of 99% comfortable in no apparent distress. HEAD: Normocephalic/atraumatic. EYES: Normal reaction of pupils, equal size. Conjunctiva pink, sclera white. NOSE: Clear with pink turbinates. THROAT: No erythema or exudates. NECK: No masses, no JVD, no thyroid enlargement, no adenopathy. CHEST: No chest wall deformity. Symmetrical expansion. LUNGS: Diminished air entry into the right lung, with no crackles, wheeze, rhonchi or dullness. CVS: Regular rate and rhythm, normal S1 and S2, no gallops, no murmurs, no rubs ABDOMEN: Soft, nontender. No hepatosplenomegaly, normal bowel sounds, no guarding or rigidity. EXTREMITIES: No clubbing, no edema, no cyanosis, 2+ pulses and upper and lower extremities. MUSCULOSKELETAL: Muscle strength and tone normal. SPINE: No scoliosis or deformity SKIN: No rashes CENTRAL NERVOUS SYSTEM: Alert and oriented -3. No focal deficits, tone is normal in all 4 extremities. PSYCHIATRIC: Alert and oriented -3. Appropriate affect. Intact judgment and insight. - Labs CBC & Chem 7: 02/08/20 08:55 02/08/20 08:55 Labs: Abnormal Lab Results - Last 24 Hours (Table) 02/08/20 02/08/20 Range/Units 08:55 08:55 Neutrophils # 8.0 H (1.3-7.7) k/uL Lymphocytes # 0.9 L (1.0-4.8) k/uL Creatinine 1.27 H (0.66-1.25) mg/dL Glucose 125 H (74-99) mg/dL Microbiology - Last 24 Hours (Table) 02/06/20 11:15 Urine Culture - Preliminary Urine,Voided Group D Enterococcus 02/07/20 12:10 Gram Stain - Preliminary Pleural Fluid Body Fluid Culture - Preliminary 02/07/20 12:10 Acid Fast Bacilli Culture - Preliminary Pleural Fluid 02/07/20 12:10 Fungal Culture - Preliminary Pleural Fluid 02/07/20 10:15 Gram Stain - Preliminary Sputum Sputum Culture - Preliminary Assessment and Plan Plan: Assessment: #1. New onset massive right-sided pleural effusion, status post thoracentesis with 2.4 L removed, revealing exudative fluid, cytology and cultures are pending. Rule out lung cancer #2. Right hilar obstructing mass or neoplasm with associated thoracic adenopathy, patient is scheduled for bronchoscopy with biopsies for tomorrow 02/09/2020 #3. History of COPD #4. History of long-time smoking #5. Hemoptysis #6. Hypertension #7. Hyperlipidemia Plan: CT of the chest has been reviewed with Dr. Broderick, patient was seen and e valuated by Dr. Broderick, findings were discussed with the patient's son and the patient. Patient is agreeable to proceed with the bronchoscopy, airway examination and possible biopsies for suspected endobronchial lesion or a mass in the right lung. We will hold aspirin and Eliquis, we'll schedule the patient for 02/09/2020, nothing by mouth after midnight, continue current medical treatment right now, still awaiting results of the pleural fluid cytology. I performed a history & physical examination of the patient and discussed their management with my nurse practitioner, Tonya Gordillo. I reviewed the nurse practitioner's note and agree with the documented findings and plan of care. Rossy ng sounds are positive for diminished breath sounds in the right base. The findings and the impression was discussed with the patient. I attest to the documentation by the nurse practitioner. Time with Patient: Less than 30
--- NOTE | 2020-02-09 07:38 | CDI ---
Documentation Clarification Form Date: 02/08/2020 09:36:00 PM From: Liliana Clark RN, CCDS Admit Date: 02/07/2020 02:01:00 PM Patient Name: Daron Garay V Visit Number: [id number] ATTENTION: The Clinical Documentation Specialists (CDI) and [facility] Coding Staff appreciate your assistance in clarifying documentation. Please respond to the clarification below the line at the bottom and electronically sign. The CDI & [facility] Coding staff will review the response and follow-up if needed. Please note: Queries are made part of the Legal Health Record. If you have any questions, please contact the author of this message via ITS. Dr. Jimenez Sheet The patient presented with the Uncontrolled HTN and requires further specificity. History/Risk Factors: HTN Clinical Indicators: 02/05-02/07 Lab findings: Creatinine 1.4/1.27 02/05 B/P 214/90, 184/104, 179/101, 181/94, 217/99, 220/90, 153/60 Treatment: Apresoline 10 mg IVP X 1 Lebetalol 200 mg PO OT In your professional opinion, can you please clarify uncontrolled HTN with further specificity? Hypertensive urgency Hypertensive emergency Other, please specify Unable to determine (Last Revision: November 2017) Hypertensive urgency MTDD
--- NOTE | 2020-02-09 08:56 | P.PN ---
Subjective From records: Patient is a 89-year-old male with a known history of hypertension, hyperlipidemia, emphysema, previous history of smoking quit several years ago, history of prostate cancer and had prostate seeded came to ER with the complaints of coughing up bright red blood which he noticed that this morning. Patient was also having exertional dyspnea which is getting worse. Denies any sputum production. No fever no chills. Denies any hematemesis or melena. No headache or dizziness or lightheadedness. no leg swelling. Patient states that he lost about 15 to 20 pounds in the last couple of months. Chest x-ray showed interval development of a large right-sided pleural effusion KUB x-ray showed increased opacity of the right hemothorax keeping with the right-sided effusion. No definite acute intra-abdominal abnormality. EKG showed sinus rhythm with first-degree AV block Chest ultrasound was done complex right pleural effusion Laboratory data reviewed BUN 18 and creatinine 1.4 troponin less than 0.012 and proBNP 731 UA negative 02/07/2020 Patient is currently lying in bed comfortably. Blood pressure is uncontrolled and will be started on lisinopril and Lasix 20 mg daily. Patient was seen by pulmonary and is status post right thoracentesis CT chest was ordered. No complaints of chest pain or worsening shortness of air. No nausea vomiting or abdominal pain. No diarrhea. No other acute overnight issues. Follow-up fluid analysis and cytology. Subjective 02/08/2020 This is a pleasant 89 years old male who presents on 02/05 because of hemoptysis and coughing. He underwent thoracocentesis by Dr. Meneses yesterday. Also CAT scan of the chest was showing right main bronchus occlusion with a mucous/lesion, with possible right lung mass and mediastinal lymphadenopathy This morning he is alert and awake, no dyspnea. Little cough. No other complaints. Vitals are stable, blood pressure on the high side 172/74 Creatinine is 1.4. Odontogenic labs this morning. His on Cardizem 180 mg, lisinopril 20 mg, we going to add hydralazine, no beta monroe because of bradycardia 02/09/2020 Patient is breathing quietly, no other symptoms, no chest pain or dyspnea. This fully awake and oriented. His CAT scan showing right lung mass and is planned to go for bronchoscopy today, his aspirin and Plavix are on hold. Urine culture is growing enterococci however no signs symptoms of UTI, no UTI. Urine analysis, it looks like colonization and no need for antibiotic. Blood pressure still on the high side 181/84, we going to increase his hydralazine to 50 mg twice daily Cytology for pleural fluid is a still pending Objective - Vital Signs Vital signs: Vital Signs Temp 97.7 F 02/09/20 07:00 Pulse 68 02/09/20 07:00 Resp 16 02/09/20 07:00 BP 181/84 02/09/20 07:00 Pulse Ox 99 02/09/20 07:00 Intake & Output 02/08/20 02/09/20 02/09/20 18:59 06:59 18:59 Intake Total 160 Balance 160 Intake: Intake, IV Titration 160 Amount Sodium Chloride 0.9% 1, 160 000 ml @ 20 mls/hr IV . Q24H [facility] Rx#:[id number] Oral 0 Other: Voiding Method Toilet # Voids 3 1 - Exam GENERAL: The patient is alert and oriented x3, not in any acute distress. Well developed, well nourished. HEENT: Pupils are round and equally reacting to light. EOMI. No scleral icterus. No conjunctival pallor. Normocephalic, atraumatic. No pharyngeal erythema. No thyromegaly. CARDIOVASCULAR: S1 and S2 present. No murmurs, rubs, or gallops. PULMONARY: Chest is clear to auscultation, no wheezing or crackles. ABDOMEN: Soft, nontender, nondistended, normoactive bowel sounds. No palpable organomegaly. MUSCULOSKELETAL: No joint swelling or deformity. EXTREMITIES: No cyanosis, clubbing, or pedal edema. NEUROLOGICAL: Gross neurological examination did not reveal any focal deficits. SKIN: No rashes. no petechiae. - Labs CBC & Chem 7: 02/08/20 08:55 02/08/20 08:55 Labs: Abnormal Lab Results - Last 24 Hours (Table) 02/08/20 02/08/20 Range/Units 08:55 08:55 Neutrophils # 8.0 H (1.3-7.7) k/uL Lymphocytes # 0.9 L (1.0-4.8) k/uL Creatinine 1.27 H (0.66-1.25) mg/dL Glucose 125 H (74-99) mg/dL Microbiology - Last 24 Hours (Table) 02/07/20 12:10 Acid Fast Bacilli Smear - Final Pleural Fluid Acid Fast Bacilli Culture - Preliminary 02/07/20 12:10 Gram Stain - Preliminary Pleural Fluid Body Fluid Culture - Preliminary 02/06/20 11:15 Urine Culture - Preliminary Urine,Voided Group D Enterococcus Assessment and Plan Assessment: Worsening exertional dyspnea due to large right-sided pleural effusion. Malignant effusion cannot be excluded. Status post right thoracentesis. Right main bronchus occlusion with mucous/lesion with possible right lung mass and mediastinal lymphadenopathy uncontrolled Hypertension Hyperlipidemia COPD/emphysema Previous history of smoking Daily alcohol use History of prostate cancer and had prostate seed placement Osteoarthritis DVT prophylaxis Plan: This is a pleasant 89 years old male who presents with a right pleural effusion and lung mass. Status post thoracocentesis. Follow-up results. Follow-up pulmonary recommendation or the case. Patient is informed about the findings and he verbalized understanding.Follow-up creatinine and continue with Cardizem, lisinopril and add hydralazine 50 mg, monitor blood pressure Patient is going for bronchoscopy Labs and medication were reviewed.. Continue same treatment. Continue with symptomatic treatment. Resume home medication. Monitor lytes and vitals. DVT and GI prophylaxis. Further recommendations of the clinical course of the patient DVT prophylaxis: no Subcutaneous heparin in view of hemoptysis GI Prophylaxis: Pepcid Prognosis is guarded
[2020-02-09] MEDS: MULTIVITAMINS, THERA 1 EACH TAB PO SCH (09:48)
[2020-02-09] MEDS: hydrALAZINE HCL 25 MG TAB PO SCH ×2 (09:48→21:59)
[2020-02-09] MEDS: ATORVASTATIN 10 MG TAB PO SCH (09:48)
[2020-02-09] MEDS: FAMOTIDINE 20 MG TAB PO SCH (09:48)
[2020-02-09] MEDS: FUROSEMIDE 20 MG TAB PO SCH (09:48)
[2020-02-09] MEDS: DILTIAZEM CD 180 MG CAP.ER.24H PO SCH (09:48)
[2020-02-09] MEDS: CALCIUM CARBONATE 500 MG CHEWABLE PO SCH (09:48)
[2020-02-09] MEDS: LISINOPRIL 20 MG TAB PO SCH (09:48)
[2020-02-09] MEDS: ZINC SULFATE 220 MG CAP PO SCH (09:49)
[2020-02-09 11:11] LABS: Calcium 8.9 mg/dL (8.4-10.2); Potassium 4.2 mmol/L (3.5-5.1)
--- NOTE | 2020-02-09 12:44 | P.PN ---
Subjective Progress Note Date: 02/09/20 Principal diagnosis: New-onset massive right-sided effusion, status post thoracentesis with removal of 2.4 L of pleural fluid, rule out lung cancer On 02/08/2020 patient seen in follow-up on medical floor, he is status post right-sided thoracentesis with removal of 2.4 L of pleural fluid and cytology is still pending, yesterday CT of the chest revealed central right hilar obs tructing mass or neoplasm with associated thoracic adenopathy and bronchoscopy with biopsies was recommended. Patient is on 3 L of oxygen the pulse ox of 99%, he is breathing quite a bit easier, lung sounds reveal diminished breath sounds at the right base, no fever or chills. Patient remains on daily dose of oral Lasix. Today's labs have been reviewed, white blood cell, 7.1, hemoglobin is 13.6, electrolytes were within normal limits, creatinine slightly improved and down to 1.27. Urinalysis was negative, coronary burst PCR was negative, pleural fluid analysis revealed exudative fluid with pleural fluid protein content of 4.4 g. Gram stain of the pleural fluid showed many gram-positive cocci, of different morphologies, and many gram-positive bacilli. Final cultures pending. No altered mentation, patient is sitting up in the chair, calm and comfortable, he is eating lunch. We spoke to the patient and his son regarding possibility of bronchoscopy with biopsies for suspicion of endobronchial malignancy in the right lung causing volume loss, and postobstructive changes. The patient and his son both agreeable to proceed with bronchoscopy and biopsies tomorrow. 02/09/2020 patient seen in follow-up on general medical floor, he is awake and alert, in no acute distress, resting comfortably in bed, he is currently on 3 L of oxygen the pulse ox of 99%, no fever or chills, a bit hypertensive this afternoon, with systolic and 180, and diastolic in the 80s, respirations are nonlabored, seems to be comfortable at rest. Today's labs reviewed, showing electrolytes and renal profile within normal limits. Pleural fluid analysis showed exudative fluid, coronary burst PCR was negative. Pleural fluid cytology is still pending. Cultures are negative thus far. Objective - Vital Signs Vital signs: Vital Signs Temp 97.7 F 02/09/20 07:00 Pulse 68 02/09/20 07:00 Resp 16 02/09/20 07:00 BP 181/84 02/09/20 07:00 Pulse Ox 99 02/09/20 07:00 Intake & Output 02/08/20 02/09/20 02/09/20 18:59 06:59 18:59 Intake Total 160 Balance 160 Intake: Intake, IV Titration 160 Amount Sodium Chloride 0.9% 1, 160 000 ml @ 20 mls/hr IV . Q24H COUNT INCLUDES THE [facility] Rx#:[id number] Oral 0 Other: Voiding Method Toilet # Voids 3 1 - Exam GENERAL EXAM: Alert, very pleasant 89-year-old white male, on 3 L of oxygen and the pulse ox of 99% comfortable in no apparent distress. HEAD: Normocephalic/atraumatic. EYES: Normal reaction of pupils, equal size. Conjunctiva pink, sclera white. NOSE: Clear with pink turbinates. THROAT: No erythema or exudates. NECK: No masses, no JVD, no thyroid enlargement, no adenopathy. CHEST: No chest wall deformity. Symmetrical expansion. LUNGS: Diminished air entry into the right lung, with no crackles, wheeze, rhonchi or dullness. CVS: Regular rate and rhythm, normal S1 and S2, no gallops, no murmurs, no rubs ABDOMEN: Soft, nontender. No hepatosplenomegaly, normal bowel sounds, no guarding or rigidity. EXTREMITIES: No clubbing, no edema, no cyanosis, 2+ pulses and upper and lower extremities. MUSCULOSKELETAL: Muscle strength and tone normal. SPINE: No scoliosis or deformity SKIN: No rashes CENTRAL NERVOUS SYSTEM: Alert and oriented -3. No focal deficits, tone is normal in all 4 extremities. PSYCHIATRIC: Alert and oriented -3. Appropriate affect. Intact judgment and insight. - Labs CBC & Chem 7: 02/08/20 08:55 02/09/20 09:49 Labs: Abnormal Lab Results - Last 24 Hours (Table) 02/09/20 Range/Units 09:49 Glucose 112 H (74-99) mg/dL Microbiology - Last 24 Hours (Table) 02/07/20 10:15 Gram Stain - Final Sputum Sputum Culture - Final 02/07/20 12:10 Acid Fast Bacilli Smear - Final Pleural Fluid Acid Fast Bacilli Culture - Preliminary 02/07/20 12:10 Gram Stain - Preliminary Pleural Fluid Body Fluid Culture - Preliminary 02/06/20 11:15 Urine Culture - Preliminary Urine,Voided Group D Enterococcus Assessment and Plan Plan: Assessment: #1. New onset massive right-sided pleural effusion, status post thoracentesis with 2.4 L removed, revealing exudative fluid, cytology and cultures are pending. Rule out lung cancer #2. Right hilar obstructing mass or neoplasm with associated thoracic adenopathy, patient is scheduled for bronchoscopy with biopsies for tomorrow 02/09/2020 #3. History of COPD #4. History of long-time smoking #5. Hemoptysis #6. Hypertension #7. Hyperlipidemia Plan: Patient is scheduled for bronchoscopy with biopsies today, he's been nothing by mouth after midnight, continue current medical treatment, still awaiting results of the pleural fluid cytology. Will follow I performed a history & physical examination of the patient and discussed their management with my nurse practitioner, Tonya Gordillo. I reviewed the nurse practitioner's note and agree with the documented findings and plan of care. Lung sounds are positive for diminished breath sounds in the right base. The findings and the impression was discussed with the patient. I attest to the documentation by the nurse practitioner. Time with Patient: Less than 30
[2020-02-09] MEDS ORDERED: KETAMINE 10 MG/ML 20 ML VIAL ONE (13:19)
[2020-02-09] MEDS ORDERED: PROPOFOL 10 MG/ML 20 ML VIAL IV ONE (13:19)
[2020-02-09] MEDS ORDERED: MIDAZOLAM 2 MG/2 ML VIAL ONE (13:19)
[2020-02-09] MEDS ORDERED: fentaNYL (PF) 50 MCG/ML 2 ML AMP ONE (13:19)
[2020-02-09] MEDS ORDERED: LIDOCAINE 1% INJ 10MG/ML (20 ML MDV) ONE (13:19)
[2020-02-09] MEDS ORDERED: IV FLUID CONTINUATION 500 ML IV ONE (13:20)
[2020-02-09] MEDS: SODIUM CHLORIDE 0.9% 1,000 ML IV SCH (13:48)
[2020-02-09] MEDS ORDERED: LACTATED RINGERS 1,000 ML IV ONE (14:20)
[2020-02-09 14:33] VITALS: RESP 18
--- NOTE | 2020-02-09 17:50 | PCN ---
PROCEDURE NOTE PROCEDURE: Bronchoscopy. PREOPERATIVE DIAGNOSIS: Hemoptysis. POSTOPERATIVE DIAGNOSES: 1. Endobronchial tumor obstructing the bronchus intermedius. 2. Bleeding tumor in the bronchus intermedius with secondary hemoptysis. PROCEDURE DESCRIPTION: This procedure was done in the endoscopy suite. This was done under conscious sedation. Anesthetic agent was administered by Anesthesia at bedside. After achieving adequate sedation, the flexible bronchoscope was inserted through the left nostril and it was advanced to the upper airway. Examination of the posterior pharynx, larynx, epiglottis, arytenoids, vocal cords was done. All of the upper airway structures were within normal limits. Vocal cords were visualized and they were normal in function and mobility. A total of 2 mL of 1% lidocaine was applied to the vocal cord, and following that the bronchoscope was advanced to the subglottic trachea and an airway inspection was performed. There were loose bloody respiratory secretions retained within the trachea, more so in the distal trachea, and the origin of the secretions was from the right lower lobe area, as the bloody secretions were more abundant in the right mainstem bronchus. I was able to identify the right upper lobe bronchus. Bronchus intermedius was completely blocked by endobronchial tumor. The tumor surface was irregular and it was bleeding on and off episodically. By just simple manipulation with the bronchoscope, I induced some limited bleeding from the tumor surface. Suctioning was applied and a total of 30 to 40 mL of bloody secretions were aspirated during the procedure. I was unable to go past the endobronchial tumor due to concerns about more bleeding, as the patient was having episodes of desaturation during the procedure. A quick inspection of the left side was within normal limits, and this included the left upper lobe bronchus, lingular segment and the left lower lobe bronchus. The bronchoscope was then again moved to the right mainstem bronchus and the bleeding from the endobronchial tumor from the bronchus intermedius was monitored. Ultimately the bleeding stopped and the area clotted off. At the completion of the procedure, there was a large clot obstructing the tumor surface in the bronchus intermedius. There was complete obstruction of the right middle lobe and right lower lobe bronchus, as there was a cutoff at the level of the bronchus intermedius. The residual bloody secretions were suctioned out. The bronchoscope was removed and the patient was transferred to Recovery in stable condition. POSTOPERATIVE DIAGNOSES: 1. Endobronchial tumor obstructing the bronchus intermedius. There was complete obstruction of the bronchus intermedius with secondary atelectasis of the right middle lobe and the right lower lobe. 2. Hemoptysis secondary to endobronchial tumor at the level of the bronchus intermedius. No endobronchial biopsies were done due to concern about life- threatening bleeding post biopsy. As such, no samples were obtained. PLAN: I will discuss findings with the patient and the family. We will be awaiting the pleural fluid cytology. I do not think the patient is a candidate for any further intervention based on his age and comorbidities. He should consider palliative care. He is at high risk of having a recurrent bleed based on the bronchoscopic appearance of the endobronchial tumor. I would stop all forms of anti-platelet agents for now, including Plavix. This patient carries a high mortality based on the bronchoscopic findings. This was explained to the son following the procedure. MMODL / MAHENDRAN: [id number] / MTDD
[2020-02-10 03:55] VITALS: PULSE 61
[2020-02-10 08:04] VITALS: BP 177/75; TEMP 98.2
[2020-02-10] MEDS: ZINC SULFATE 220 MG CAP PO SCH (09:17)
[2020-02-10] MEDS: DILTIAZEM CD 180 MG CAP.ER.24H PO SCH (09:17)
[2020-02-10] MEDS: LISINOPRIL 20 MG TAB PO SCH (09:18)
[2020-02-10] MEDS: FUROSEMIDE 20 MG TAB PO SCH (09:18)
[2020-02-10] MEDS: MULTIVITAMINS, THERA 1 EACH TAB PO SCH (09:18)
[2020-02-10] MEDS: CALCIUM CARBONATE 500 MG CHEWABLE PO SCH (09:18)
[2020-02-10] MEDS: FAMOTIDINE 20 MG TAB PO SCH (09:18)
[2020-02-10] MEDS: ATORVASTATIN 10 MG TAB PO SCH (09:18)
[2020-02-10] MEDS: hydrALAZINE HCL 25 MG TAB PO SCH (09:18)
[2020-02-10 10:04] LABS: Calcium 9.7 mg/dL (8.4-10.2); Potassium 3.9 mmol/L (3.5-5.1)
--- NOTE | 2020-02-10 11:33 | P.DS ---
Providers Date of admission: 02/07/20 14:01 Attending physician: Jose Castillo Consults: 02/06/20 11:41 Consult Physician Routine Consulting Provider: Haider Meneses Consult Reason/Comments: Hemoptysis, right pleural effusion Do you want consulting provider notified?: Yes Primary care physician: Jose Castillo Hospital Course: Diagnoses: Worsening exertional dyspnea due to large right-sided pleural effusion. Malignant effusion cannot be excluded. Status post right thoracentesis. Cytology fluids still pending Right main bronchus occlusion with mucous/lesion, status post bronchoscopy showing large and bleeding right right lung mass and mediastinal lymphadenopathy. uncontrolled Hypertension Hyperlipidemia COPD/emphysema Previous history of smoking Daily alcohol use History of prostate cancer and had prostate seed placement Osteoarthritis Hospital course: Patient is a 89-year-old male with a known history of hypertension, hyperlipidemia, emphysema, previous history of smoking quit several years ago, history of prostate cancer and had prostate seeded came to ER with the complaints of coughing up bright red blood which he noticed that this morning. Patient was also having exertional dyspnea which is getting worse. Chest x-ray showed interval development of a large right-sided pleural effusion, status post post-thoracocentesis. Also patient underwent bronchoscopy find large bleeding lung mass blocking the right side bronchus, biopsy could not be obtained due to bleeding. Due to the severity of his illness/mass, highly suspicious for cancer, given his age and comorbidity we don't think he is a candidate for chemotherapy, patient himself he does not want any chemotherapy, also her refused the offered palliative radiotherapy, he states he just needs to live his good days. Pulmonary team also talked to her son. Patient is fully awake and oriented and he has capacity to make medical decision based upon my evaluation. Plavix is stopped because of bleeding potential, patient does not know why he was placed on Plavix in the first place. I discussed the case with pulmonary team and they cleared him for discharge with recommendation for outpatient follow-up in one week, patient informed and he agrees Problems and management plan were discussed with the patient and he verbalized understanding and acceptance Patient was found stable and can be discharged home however he needs follow-up as an outpatient. Patient was instructed to follow up with PCP within one week and patient agrees Gen: patient is a AAOx3, no distress CVS: S1-S2, RRR, no murmur Lungs: B/L CTA, no wheezing Abdomen: soft, no distention, no tenderness, positive bowel sounds Extremity: no leg edema or induration Time spent more than 35 minutes Patient Condition at Discharge: Fair Plan - Discharge Summary Discharge Rx Participant: No New Discharge Prescriptions: No Action Lovastatin [Mevacor] 20 mg PO DAILY Calcium Carbonate [Calcium] 600 mg PO DAILY Clopidogrel [Plavix] 75 mg PO DAILY #30 tab Nitroglycerin Sl Tabs [Nitrostat] 0.4 mg SUBLINGUAL Q5M PRN #25 tab PRN Reason: Chest Pain Multivitamins, Thera [Multivitamin (formulary)] 1 tab PO DAILY traMADol HCL 50 mg PO QID PRN PRN Reason: Pain Diltiazem HCl [Diltiazem HCl 24Hr ER (XR)] 180 mg PO DAILY Celecoxib [CeleBREX] 200 mg PO DAILY Zinc 50 mg PO DAILY Famotidine [Pepcid] 10 mg PO DAILY Discharge Medication List Lovastatin [Mevacor] 20 mg PO DAILY 06/16/14 [History] Calcium Carbonate [Calcium] 600 mg PO DAILY 09/09/17 [History] Clopidogrel [Plavix] 75 mg PO DAILY #30 tab 09/10/17 [Rx] Nitroglycerin Sl Tabs [Nitrostat] 0.4 mg SUBLINGUAL Q5M PRN #25 tab 09/10/17 [Rx] Celecoxib [CeleBREX] 200 mg PO DAILY 02/06/20 [History] Diltiazem HCl [Diltiazem HCl 24Hr ER (XR)] 180 mg PO DAILY 02/06/20 [History] Multivitamins, Thera [Multivitamin (formulary)] 1 tab PO DAILY 02/06/20 [H istory] Zinc 50 mg PO DAILY 02/06/20 [History] traMADol HCL 50 mg PO QID PRN 02/06/20 [History] Famotidine [Pepcid] 10 mg PO DAILY 02/07/20 [History] Follow up Appointment(s)/Referral(s): Jose Castillo MD [Primary Care Provider] - 1-2 days Mercedes Broderick MD [STAFF PHYSICIAN] - 1 Week
--- NOTE | 2020-02-10 13:37 | P.PN ---
Subjective Progress Note Date: 02/10/20 Principal diagnosis: New-onset massive right-sided effusion, status post thoracentesis with removal of 2.4 L of pleural fluid, rule out lung cancer On 02/08/2020 patient seen in follow-up on medical floor, he is status post right-sided thoracentesis with removal of 2.4 L of pleural fluid and cytology is still pending, yesterday CT of the chest revealed central right hilar obs tructing mass or neoplasm with associated thoracic adenopathy and bronchoscopy with biopsies was recommended. Patient is on 3 L of oxygen the pulse ox of 99%, he is breathing quite a bit easier, lung sounds reveal diminished breath sounds at the right base, no fever or chills. Patient remains on daily dose of oral Lasix. Today's labs have been reviewed, white blood cell, 7.1, hemoglobin is 13.6, electrolytes were within normal limits, creatinine slightly improved and down to 1.27. Urinalysis was negative, coronary burst PCR was negative, pleural fluid analysis revealed exudative fluid with pleural fluid protein content of 4.4 g. Gram stain of the pleural fluid showed many gram-positive cocci, of different morphologies, and many gram-positive bacilli. Final cultures pending. No altered mentation, patient is sitting up in the chair, calm and comfortable, he is eating lunch. We spoke to the patient and his son regarding possibility of bronchoscopy with biopsies for suspicion of endobronchial malignancy in the right lung causing volume loss, and postobstructive changes. The patient and his son both agreeable to proceed with bronchoscopy and biopsies tomorrow. 02/09/2020 patient seen in follow-up on general medical floor, he is awake and alert, in no acute distress, resting comfortably in bed, he is currently on 3 L of oxygen the pulse ox of 99%, no fever or chills, a bit hypertensive this afternoon, with systolic and 180, and diastolic in the 80s, respirations are nonlabored, seems to be comfortable at rest. Today's labs reviewed, showing electrolytes and renal profile within normal limits. Pleural fluid analysis showed exudative fluid, coronary burst PCR was negative. Pleural fluid cytology is still pending. Cultures are negative thus far. On 02/10/2020 patient is seen in follow-up on a general medical floor. he is awake and alert, oriented 3, he is fully dressed, and he is awaiting to be discharged home. Yesterday patient underwent bronchoscopy, with airway examination, and the bronchus intermedius was completely blocked with endobronchial tumor, and the tumor surface was irregular and was bleeding intermittently throughout the procedure. Biopsies were not attempted due to concerns of significant bleeding and possibility of further complications, however the suspicion is quite high at the tumor is related to lung malignancy, and we discussed this extensively with the patient's son following the procedure yesterday. Patient has made up his mind, and he does not want to pursue diagnosis or treatment. He was to go home and live out his days comfortably. We offered palliative radiation, the patient declined. Is currently on room air, his pulse ox is 94%, he seems comfortable, denied any significant hemoptysis overnight, no fever or chills, he is walking around the room, in no acute distress. Objective - Vital Signs Vital signs: Vital Signs Temp 98.2 F 02/10/20 07:04 Pulse 61 02/10/20 07:41 Resp 18 02/10/20 07:41 BP 177/75 02/10/20 07:04 Pulse Ox 94 L 02/10/20 07:04 Intake & Output 02/09/20 02/10/20 02/10/20 18:59 06:59 18:59 Intake Total 500 Balance 500 Intake: IV 500 Other: Voiding Method Toilet Toilet # Voids 1 0 0 # Bowel Movements 0 0 - Exam GENERAL EXAM: Alert, very pleasant 89-year-old white male, on room air with a pulse ox of 94% comfortable in no apparent distress. HEAD: Normocephalic/atraumatic. EYES: Normal reaction of pupils, equal size. Conjunctiva pink, sclera white. NOSE: Clear with pink turbinates. THROAT: No erythema or exudates. NECK: No masses, no JVD, no thyroid enlargement, no adenopathy. CHEST: No chest wall deformity. Symmetrical expansion. LUNGS: Diminished air entry into the right lung, with no crackles, wheeze, rh onchi or dullness. CVS: Regular rate and rhythm, normal S1 and S2, no gallops, no murmurs, no rubs ABDOMEN: Soft, nontender. No hepatosplenomegaly, normal bowel sounds, no guarding or rigidity. EXTREMITIES: No clubbing, no edema, no cyanosis, 2+ pulses and upper and lower extremities. MUSCULOSKELETAL: Muscle strength and tone normal. SPINE: No scoliosis or deformity SKIN: No rashes CENTRAL NERVOUS SYSTEM: Alert and oriented -3. No focal deficits, tone is normal in all 4 extremities. PSYCHIATRIC: Alert and oriented -3. Appropriate affect. Intact judgment and insight. - Labs CBC & Chem 7: 02/08/20 08:55 02/10/20 08:16 Labs: Abnormal Lab Results - Last 24 Hours (Table) 02/10/20 Range/Units 08:16 Glucose 146 H (74-99) mg/dL Microbiology - Last 24 Hours (Table) 02/07/20 12:10 Gram Stain - Preliminary Pleural Fluid Body Fluid Culture - Preliminary 02/06/20 11:15 Urine Culture - Final Urine,Voided Enterococcus faecalis 02/07/20 10:15 Gram Stain - Final Sputum Sputum Culture - Final Assessment and Plan Plan: Assessment: #1. New onset massive right-sided pleural effusion, status post thoracentesis with 2.4 L removed, revealing exudative fluid, cytology and cultures are pending. Rule out lung cancer #2. Right hilar obstructing mass or neoplasm with associated thoracic adenopathy, patient had bronchoscopy on 02/09/2020, which revealed completely obstructive bronchus intermedius with an irregular in the bronchial tumor highly suspicious for lung cancer however biopsies were not attempted related to intermittent bleeding throughout the procedure. #3. History of COPD #4. History of long-time smoking #5. Hemoptysis #6. Hypertension #7. Hyperlipidemia Plan: We discussed the findings we saw during the bronchoscopy with the patient's son and the patient. Biopsies were not attempted related to bleeding intermittently during the procedure. The findings are highly suspicious for lung cancer. Patient has made up his mind, and he wants to go home and live out the rest of his days comfortably, he declined palliative radiation. This is not unreasonable given his age, comorbidities, and high suspicion for lung cancer. He can follow up with Dr. Broderick in the office in one week. I performed a history & physical examination of the patient and discussed their management with my nurse practitioner, Tonya Gordillo. I reviewed the nurse practitioner's note and agree with the documented findings and plan of care. Lung sounds are positive for diminished breath sounds in the right base. The findings and the impression was discussed with the patient. I attest to the documentation by the nurse practitioner. Time with Patient: Less than 30
== END 2020-02-10 12:26 | disposition home or self-care (01) | DRG 181 ==
LOC: EC 10:22 → 4SSUR 12:22 → OBSVTOIN 02-07 14:01
PROVIDERS: ADMIT Family Medicine; ATTEND Family Medicine
PROC: 0W993ZX Drainage of Right Pleural Cavity, Percutaneous Approach, Diagnostic (ICD-10-PCS; 2020-02-07)
PROC: 0BJ08ZZ Inspection of Tracheobronchial Tree, Via Natural or Artificial Opening Endoscopic (ICD-10-PCS; principal; 2020-02-09 08:35)
DX: D49.1 Neoplasm of unspecified behavior of respiratory system (principal); J90 Pleural effusion, not elsewhere classified; R04.2 Hemoptysis; J98.11 Atelectasis; E78.5 Hyperlipidemia, unspecified; I10 Essential (primary) hypertension; I16.0 Hypertensive urgency; I44.0 Atrioventricular block, first degree; J43.9 Emphysema, unspecified; J98.09 Other diseases of bronchus, not elsewhere classified; Z79.02 Long term (current) use of antithrombotics/antiplatelets; Z79.1 Long term (current) use of non-steroidal anti-inflammatories (NSAID); Z79.899 Other long term (current) drug therapy; Z85.46 Personal history of malignant neoplasm of prostate; Z87.891 Personal history of nicotine dependence; Z98.42 Cataract extraction status, left eye; Z98.41 Cataract extraction status, right eye; Z96.1 Presence of intraocular lens; R63.4 Abnormal weight loss; Z68.27 Body mass index [BMI] 27.0-27.9, adult; R59.0 Localized enlarged lymph nodes; M19.90 Unspecified osteoarthritis, unspecified site; Z11.59 Encounter for screening for other viral diseases
CPT/HCPCS: 31624; 36415; 71045; 71046; 71260; 74018; 76604; 80048; 80053; 81003; 82550; 82945; 83605; 83615; 83735; 83880; 84157; 84484; 85025; 85610; 85730; 86850; 86900; 86901; 87070; 87077; 87086; 87102; 87116; 87186; 87205; 87206; 87252; 87496; 87498; 87502; 87529; 87634; 87798; 88108; 88305; 88341; 88342; 89050; 93005; 96374; 99284

== ENCOUNTER → 2020-02-29 | Outpatient (CLI) | payer OTHER, BC ==
--- NOTE | 2020-02-29 15:48 | US ---
EXAMINATION TYPE: US chest DATE OF EXAM: 02/29/2020 COMPARISON: NONE CLINICAL HISTORY: J90 PLEURAL EFFUSION. SOB, pleural effusion TECHNIQUE: Targeted ultrasound of the posterior lower right hemithorax EXAM MEASUREMENTS: Right Pleural Effusion pocket size: 14.5 cm Right skin surface to fluid distance: 3.9 cm Right side marked for possible thoracentesis outside the dept. Pulmonologists are able to review the images in the patient?s EMR. IMPRESSIONS: As above
== END | disposition home or self-care (01) ==
LOC: RADUSWWP 14:46
PROVIDERS: ATTEND Internal Medicine Critical Care Medicine
DX: J90 Pleural effusion, not elsewhere classified (principal)
CPT/HCPCS: 76604

== ENCOUNTER → 2020-03-08 | Outpatient (CLI) | payer MEDICARE, BC | END | disposition home or self-care (01) | LOC: LABWHC1 09:07 | PROVIDERS: ATTEND Surgery | DX: U07.1 COVID-19 (principal) | CPT/HCPCS: U0003; C9803 ==

== ENCOUNTER 2020-03-10 10:54 | Emergency (ER) | payer MEDICARE, BC ==
--- NOTE | 2020-03-10 11:54 | ED ---
Fall HPI <Ruperto Candelaria - Last Filed: 03/10/20 13:04> - General Source: EMS Mode of arrival: EMS <Urbano Cunha - Last Filed: 03/10/20 13:48> - General Chief Complaint: Fall Stated Complaint: Fall Time Seen by Provider: 03/10/20 11:01 - History of Present Illness Initial Comments: Patient is an 89-year-old male brought to the ED via EMS for a fall. Son is present to answer additional questions. Patient is nonverbal and does not open his eyes. Son states the patient lives by himself and had one of his neighbor check on him after she would not molded goods spot picker his thumb. Son went to the house afterwards and noticed the patient was on the ground with some blood near the head. Son states he checked on him yesterday over the phone and everything was okay. Son is concerned patient might have potentially overdosed. Patient is scheduled to have a chest tube placement for a pleural effusion. (Urbano Cunha) - Related Data Home Medications Medication Instructions Recorded Confirmed Lovastatin [Mevacor] 20 mg PO DAILY 06/16/14 03/01/20 Calcium Carbonate [Calcium] 600 mg PO DAILY 09/09/17 03/01/20 Diltiazem HCl [Diltiazem HCl 24Hr 180 mg PO DAILY 02/06/20 03/01/20 ER (XR)] Zinc 50 mg PO DAILY 02/06/20 03/01/20 traMADol HCL 50 mg PO QID PRN 02/06/20 03/01/20 Famotidine [Pepcid] 10 mg PO DAILY 02/07/20 03/01/20 Previous Rx's Medication Instructions Recorded Nitroglycerin Sl Tabs [Nitrostat] 0.4 mg SUBLINGUAL Q5M PRN #25 tab 09/10/17 Furosemide [Lasix] 20 mg PO DAILY #30 tab 02/10/20 hydrALAZINE HCL [Apresoline] 50 mg PO TID #90 tab 02/10/20 lisinopriL [Zestril] 20 mg PO DAILY #30 tab 02/10/20 Allergies Allergy/AdvReac Type Severity Reaction Status Date / Time No Known Allergies Allergy Verified 03/01/20 06:54 Review of Systems ROS Other: All systems not noted in ROS Statement are negative. <Ruperto Candelaria - Last Filed: 03/10/20 13:04> ROS Other: All systems not noted in ROS Statement are negative. <Urbano Cunha - Last Filed: 03/10/20 13:48> ROS Statement: Those systems with pertinent positive or pertinent negative responses have been documented in the HPI. Past Medical History Past Medical History: Cancer, COPD, Hyperlipidemia, Hypertension, Osteoarthritis (OA), Respiratory Disorder Additional Past Medical History / Comment(s): arthritis, emphysema "a touch". RIGHT PLEURAL EFFUSIONS. PROSTATE CANCER. LUNG CANCER. History of Any Multi-Drug Resistant Organisms: None Reported Past Surgical History: Hernia Repair, Prostate Surgery Additional Past Surgical History / Comment(s): bilat cataract removal with lens implants, prostrate CA and had prostate seeded. BRONCHOSPCOPY. RIGHT DIAGNOSTIC THORACENTESIS. Past Anesthesia/Blood Transfusion Reactions: No Reported Reaction Past Psychological History: No Psychological Hx Reported Smoking Status: Former smoker Past Alcohol Use History: Daily Past Drug Use History: None Reported - Past Family History Father History Unknown: Yes Family Medical History: Unable to Obtain <Urbano Cunha - Last Filed: 03/10/20 13:48> General Exam Limitations: altered mental status Head exam: Present: normocephalic. Absent: normal inspection (Some trauma noted on the scalp.), other (Negative Barney sign, negative raccoon's, negative hemotympanum.) Eye exam: Present: normal appearance, PERRL Pupils: Present: miosis ENT exam: Present: mucous membranes dry, TM's normal bilaterally, normal external ear exam. Absent: normal exam, normal oropharynx (Some residual blood noted in the mouth.) Neck exam: Present: normal inspection, full ROM. Absent: tenderness Respiratory exam: Present: rhonchi (Right-sided) Cardiovascular Exam: Present: normal rhythm, bradycardia, normal heart sounds GI/Abdominal exam: Present: soft. Absent: distended Extremities exam: Present: normal inspection Back exam: Present: normal inspection Neurological exam: Present: altered, other (patient unresponsive) Skin exam: Present: dry, intact, normal color <Urbano Cunha - Last Filed: 03/10/20 13:48> Course <Ruperto Candelaria - Last Filed: 03/10/20 13:04> Vital Signs 03/10/20 11:11 Temperature 92.8 F L Pulse Rate 48 L Respiratory 16 Rate Blood Pressure 138/75 O2 Sat by Pulse 98 Oximetry - Reevaluation(s) Reevaluation #1: 03/10/20 11:58 Patient reevaluated by myself, Dr. Candelaria. Patient resting in bed. There is minimal blood in the patient's lip. Patient has limited withdraw to pain. Patient does not open eyes or verbalize. Son is present and provides history. He states patient has large right-sided lung effusion and probable mass. There are some in this is cancerous however patient has decided no radiation or chemotherapy. Patient is on hospice and is DO NOT RESUSCITATE. Son believes patient may have fell out of bed and struck the nightstand. He did speak with the patient early yesterday evening he was doing fine at that time. 03/10/20 13:05 Case was discussed with Dr. Botello, who will admit under hospice care. He is covering for Dr. Castillo. (Rupetro Candelaria) Medical Decision Making - Lab Data Result diagrams: 03/10/20 11:51 <Ruperto Candelaria - Last Filed: 03/10/20 13:04> - Lab Data Result diagrams: 03/10/20 11:51 03/10/20 11:51 <Urbano Cunha - Last Filed: 03/10/20 13:48> - Lab Data Lab Results 03/10/20 03/10/20 03/10/20 Range/Units 11:51 11:51 11:51 WBC 8.6 (3.8-10.6) k/uL RBC 4.14 L (4.30-5.90) m/uL Hgb 11.7 L (13.0-17.5) gm/dL Hct 36.7 L (39.0-53.0) % MCV 88.6 (80.0-100.0) fL MCH 28.2 (25.0-35.0) pg MCHC 31.8 (31.0-37.0) g/dL RDW 13.7 (11.5-15.5) % Plt Count 255 (150-450) k/uL Neutrophils % 79 % Lymphocytes % 8 % Monocytes % 8 % Eosinophils % 2 % Basophils % 0 % Neutrophils # 6.8 (1.3-7.7) k/uL Lymphocytes # 0.7 L (1.0-4.8) k/uL Monocytes # 0.7 (0-1.0) k/uL Eosinophils # 0.2 (0-0.7) k/uL Basophils # 0.0 (0-0.2) k/uL PT 11.6 (9.0-12.0) sec INR 1.1 (<1.2) Sodium 133 L (137-145) mmol/L Potassium 4.1 (3.5-5.1) mmol/L Chloride 111 H (98-107) mmol/L Carbon Dioxide 18 L (22-30) mmol/L Anion Gap 4 mmol/L BUN 15 (9-20) mg/dL Creatinine 0.99 (0.66-1.25) mg/dL Est GFR (CKD-EPI)AfAm 78 (>60 ml/min/1.73 sqM) Est GFR (CKD-EPI)NonAf 68 (>60 ml/min/1.73 sqM) Glucose 91 (74-99) mg/dL Plasma Lactic Acid Phil (0.7-2.0) mmol/L Calcium 6.2 L* (8.4-10.2) mg/dL Magnesium (1.6-2.3) mg/dL Total Bilirubin 0.3 (0.2-1.3) mg/dL AST 17 (17-59) U/L ALT 7 (4-49) U/L Alkaline Phosphatase 93 (38-126) U/L Troponin I (0.000-0.034) ng/mL Total Protein 4.4 L (6.3-8.2) g/dL Albumin 2.1 L (3.5-5.0) g/dL Urine Color Urine Appearance (Clear) Urine pH (5.0-8.0) Ur Specific [place] (1.001-1.035) Urine Protein (Negative) Urine Glucose (UA) (Negative) Urine Ketones (Negative) Urine Blood (Negative) Urine Nitrite (Negative) Urine Bilirubin (Negative) Urine Urobilinogen (<2.0) mg/dL Ur Leukocyte Esterase (Negative) Salicylates <1.0 mg/dL Urine Opiates Screen (NotDetected) Ur Oxycodone Screen (NotDetected) Urine Methadone Screen (NotDetected) Ur Propoxyphene Screen (NotDetected) Acetaminophen <10.0 ug/mL Ur Barbiturates Screen (NotDetected) U Tricyclic Antidepress (NotDetected) Ur Phencyclidine Scrn (NotDetected) Ur Amphetamines Screen (NotDetected) U Methamphetamines Scrn (NotDetected) U Benzodiazepines Scrn (NotDetected) Urine Cocaine Screen (NotDetected) U Marijuana (THC) Screen (NotDetected) Serum Alcohol <10 mg/dL 03/10/20 03/10/20 03/10/20 Range/Units 11:51 11:51 11:51 WBC (3.8-10.6) k/uL RBC (4.30-5.90) m/uL Hgb (13.0-17.5) gm/dL Hct (39.0-53.0) % MCV (80.0-100.0) fL MCH (25.0-35.0) pg MCHC (31.0-37.0) g/dL RDW (11.5-15.5) % Plt Count (150-450) k/uL Neutrophils % % Lymphocytes % % Monocytes % % Eosinophils % % Basophils % % Neutrophils # (1.3-7.7) k/uL Lymphocytes # (1.0-4.8) k/uL Monocytes # (0-1.0) k/uL Eosinophils # (0-0.7) k/uL Basophils # (0-0.2) k/uL PT (9.0-12.0) sec INR (<1.2) Sodium (137-145) mmol/L Potassium (3.5-5.1) mmol/L Chloride (98-107) mmol/L Carbon Dioxide (22-30) mmol/L Anion Gap mmol/L BUN (9-20) mg/dL Creatinine (0.66-1.25) mg/dL Est GFR (CKD-EPI)AfAm (>60 ml/min/1.73 sqM) Est GFR (CKD-EPI)NonAf (>60 ml/min/1.73 sqM) Glucose (74-99) mg/dL Plasma Lactic Acid Phil 1.5 (0.7-2.0) mmol/L Calcium (8.4-10.2) mg/dL Magnesium 1.8 (1.6-2.3) mg/dL Total Bilirubin (0.2-1.3) mg/dL AST (17-59) U/L ALT (4-49) U/L Alkaline Phosphatase (38-126) U/L Troponin I <0.012 (0.000-0.034) ng/mL Total Protein (6.3-8.2) g/dL Albumin (3.5-5.0) g/dL Urine Color Urine Appearance (Clear) Urine pH (5.0-8.0) Ur Specific [place] (1.001-1.035) Urine Protein (Negative) Urine Glucose (UA) (Negative) Urine Ketones (Negative) Urine Blood (Negative) Urine Nitrite (Negative) Urine Bilirubin (Negative) Urine Urobilinogen (<2.0) mg/dL Ur Leukocyte Esterase (Negative) Salicylates mg/dL Urine Opiates Screen (NotDetected) Ur Oxycodone Screen (NotDetected) Urine Methadone Screen (NotDetected) Ur Propoxyphene Screen (NotDetected) Acetaminophen ug/mL Ur Barbiturates Screen (NotDetected) U Tricyclic Antidepress (NotDetected) Ur Phencyclidine Scrn (NotDetected) Ur Amphetamines Screen (NotDetected) U Methamphetamines Scrn (NotDetected) U Benzodiazepines Scrn (NotDetected) Urine Cocaine Screen (NotDetected) U Marijuana (THC) Screen (NotDetected) Serum Alcohol mg/dL 03/10/20 03/10/20 Range/Units 12:24 12:24 WBC (3.8-10.6) k/uL RBC (4.30-5.90) m/uL Hgb (13.0-17.5) gm/dL Hct (39.0-53.0) % MCV (80.0-100.0) fL MCH (25.0-35.0) pg MCHC (31.0-37.0) g/dL RDW (11.5-15.5) % Plt Count (150-450) k/uL Neutrophils % % Lymphocytes % % Monocytes % % Eosinophils % % Basophils % % Neutrophils # (1.3-7.7) k/uL Lymphocytes # (1.0-4.8) k/uL Monocytes # (0-1.0) k/uL Eosinophils # (0-0.7) k/uL Basophils # (0-0.2) k/uL PT (9.0-12.0) sec INR (<1.2) Sodium (137-145) mmol/L Potassium (3.5-5.1) mmol/L Chloride (98-107) mmol/L Carbon Dioxide (22-30) mmol/L Anion Gap mmol/L BUN (9-20) mg/dL Creatinine (0.66-1.25) mg/dL Est GFR (CKD-EPI)AfAm (>60 ml/min/1.73 sqM) Est GFR (CKD-EPI)NonAf (>60 ml/min/1.73 sqM) Glucose (74-99) mg/dL Plasma Lactic Acid Phil (0.7-2.0) mmol/L Calcium (8.4-10.2) mg/dL Magnesium (1.6-2.3) mg/dL Total Bilirubin (0.2-1.3) mg/dL AST (17-59) U/L ALT (4-49) U/L Alkaline Phosphatase (38-126) U/L Troponin I (0.000-0.034) ng/mL Total Protein (6.3-8.2) g/dL Albumin (3.5-5.0) g/dL Urine Color Yellow Urine Appearance Clear (Clear) Urine pH 6.5 (5.0-8.0) Ur Specific [place] 1.008 (1.001-1.035) Urine Protein Negative (Negative) Urine Glucose (UA) Negative (Negative) Urine Ketones Negative (Negative) Urine Blood Negative (Negative) Urine Nitrite Negative (Negative) Urine Bilirubin Negative (Negative) Urine Urobilinogen <2.0 (<2.0) mg/dL Ur Leukocyte Esterase Negative (Negative) Salicylates mg/dL Urine Opiates Screen Not Detected (NotDetected) Ur Oxycodone Screen Not Detected (NotDetected) Urine Methadone Screen Not Detected (NotDetected) Ur Propoxyphene Screen Not Detected (NotDetected) Acetaminophen ug/mL Ur Barbiturates Screen Not Detected (NotDetected) U Tricyclic Antidepress Not Detected (NotDetected) Ur Phencyclidine Scrn Not Detected (NotDetected) Ur Amphetamines Screen Not Detected (NotDetected) U Methamphetamines Scrn Not Detected (NotDetected) U Benzodiazepines Scrn Detected H (NotDetected) Urine Cocaine Screen Not Detected (NotDetected) U Marijuana (THC) Screen Not Detected (NotDetected) Serum Alcohol mg/dL Disposition <Ruperto Candelaria - Last Filed: 03/10/20 13:04> Is patient prescribed a controlled substance at d/c from ED?: No Time of Disposition: 13:48 <Urbano Cunha - Last Filed: 03/10/20 13:48> Clinical Impression: Fall, Hypocalcemia, Altered mental status, unspecified Disposition: ADMITTED IP TO THIS HOSP Condition: Fair Additional Instructions: Patient will be admitted Referrals: None,Stated [Primary Care Provider] - 1-2 days
--- NOTE | 2020-03-10 12:12 | CT ---
EXAMINATION TYPE: CT brain apolinar george DATE OF EXAM: 03/10/2020 COMPARISON: NONE HISTORY: Fall injury with headache and neck pain. CT DLP: 1376 mGycm. Automated Exposure Control for Dose Reduction was Utilized. TECHNIQUE: CT scan of the head and cervical spine are performed without contrast. FINDINGS: There is no acute intracranial hemorrhage or midline shift identified. There is diffuse v entricular and sulcal prominence. Low-density in the periventricular white matter. Calvarium is inta ct. The globes are intact and the visualized sinuses are clear. Cervical spine is visualized in its entirety from C1 through upper thoracic levels and demonstrates s atisfactory alignment without evidence of acute fracture or dislocation. Prevertebral soft tissue ap pears within normal limits. The C1-C2 articulation is normal limits on the coronal images. Vertebra l body heights are maintained. Advanced disc space narrowing C6-C7 level. Some ossific fusion with b shamar projection effacing intrathecal sac at this level. Mild to moderate disc space narrowing C4-C5 an d to greater degree C5-C6 level with moderate to severe anterior spurring. Axial images show uncovert ebral joint degenerative change bilaterally causing multilevel neural foraminal narrowing. Completely opacified right hemithorax correlates with increasing recurrent right-sided pleural effusion in the apex. Moderate calcified plaque right carotid bulb. IMPRESSION: 1. There is no acute fracture or dislocation evident in the cervical spine. 2. No acute intracranial hemorrhage or midline shift is seen. [id number] diffuse cerebral and c hronic small vessel ischemic change. Recurrent large right pleural effusion.
[2020-03-10 12:24] LABS: Basophils % (A) 0 %; Eosinophils # (A) 0.2 k/uL (0-0.7); Eosinophils % (A) 2 %; HCT 36.7 % (39.0-53.0); HGB 11.7 gm/dL (13.0-17.5); Lymphocytes # (A) 0.7 k/uL (1.0-4.8); Lymphocytes % (A) 8 %; MCH 28.2 pg (25.0-35.0); MCHC 31.8 g/dL (31.0-37.0); MCV 88.6 fL (80.0-100.0); Mean Platelet Volume 7.2; Monocytes # (A) 0.7 k/uL (0-1.0); Monocytes % (A) 8 %; Neutrophils # (A) 6.8 k/uL (1.3-7.7); Neutrophils % (A) 79 %; Platelet Count 255 k/uL (150-450); RBC 4.14 m/uL (4.30-5.90); RDW 13.7 % (11.5-15.5); WBC 8.6 k/uL (3.8-10.6)
[2020-03-10 12:44] LABS: INR 1.1 (<1.2); Prothrombin Time 11.6 sec (9.0-12.0)
[2020-03-10 12:48] LABS: ALT 7 U/L (4-49); AST 17 U/L (17-59); Acetaminophen <10.0 ug/mL; African American GFR (CKD) 78 (>60 ml/min/1.73 sqM); Albumin 2.1 g/dL (3.5-5.0); Alcohol <10 mg/dL; Alkaline Phosphatase 93 U/L (38-126); Anion Gap 4 mmol/L; Blood Urea Nitrogen 15 mg/dL (9-20); Carbon Dioxide 18 mmol/L (22-30); Chloride 111 mmol/L (98-107); Glucose 91 mg/dL (74-99); Non-African American GFR(CKD) 68 (>60 ml/min/1.73 sqM); Potassium 4.1 mmol/L (3.5-5.1); Salicylate <1.0 mg/dL; Sodium 133 mmol/L (137-145); Total Bilirubin 0.3 mg/dL (0.2-1.3); Total Protein 4.4 g/dL (6.3-8.2)
[2020-03-10 12:57] LABS: Appearance,Urine Clear (Clear); Bilirubin,Urine Negative (Negative); Blood,Urine Negative (Negative); Color,Urine Yellow; Glucose,Urine (UA) Negative (Negative); Ketones,Urine Negative (Negative); Leukocyte Esterase,Urine Negative (Negative); Nitrite,Urine Negative (Negative); PH, Urine 6.5 (5.0-8.0); Protein,Urine Negative (Negative); Specific Gravity,Urine 1.008 (1.001-1.035); Urobilinogen,Urine <2.0 mg/dL (<2.0)
[2020-03-10 13:18] LABS: Amphetamine Screen,Urine Not Detected (NotDetected); Barbiturate Screen,Urine Not Detected (NotDetected); Benzodiazepines Screen,Urine Detected (NotDetected); Cocaine Screen,Urine Not Detected (NotDetected); Methadone Screen, Urine Not Detected (NotDetected); Opiate Screen,Urine Not Detected (NotDetected); Oxycodone Screen, Urine Not Detected (NotDetected); Phencyclidine Screen,Urine Not Detected (NotDetected); Tricyclic Antidepressant,Urine Not Detected (NotDetected); Urn Cannabinoid Scrn Not Detected (NotDetected)
[2020-03-10 13:22] LABS: Calcium 6.2 mg/dL (8.4-10.2)
--- NOTE | 2020-03-10 13:36 | XR ---
EXAMINATION TYPE: XR chest 2V DATE OF EXAM: 03/10/2020 COMPARISON: Chest x-ray March 01, 2020. CT chest February 07, 2020. HISTORY: Fall and weakness. TECHNIQUE: Frontal and lateral views of the chest are obtained. FINDINGS: There is no recurrent large right pleural effusion. There is associated right lung atelect asis. No significant mediastinal shift. Left lung remains nominally clear. Chronic right pleural huffman ges bilaterally The cardiac silhouette size remains enlarged with atherosclerotic aorta. Multilevel s purring in the spine. IMPRESSION: Chronic parenchymal changes and cardiomegaly with recurrent large right pleural effusion . No new significant mediastinal shift.
[2020-03-10] MEDS ORDERED: MORPHINE SULFATE 4 MG/ML SYRINGE IV PRN (13:45)
[2020-03-10] MEDS ORDERED: ACETAMINOPHEN TAB 325 MG TAB PO PRN (13:45)
[2020-03-10] MEDS ORDERED: HYDROmorphone 0.5 MG/0.5 ML SYRINGE IVP PRN (13:45)
[2020-03-10] MEDS ORDERED: NALOXONE 0.4 MG/ML 1 ML VIAL IV PRN (13:45)
[2020-03-10] MEDS ORDERED: SODIUM CHLORIDE 0.9% 1,000 ML IV SCH (13:45)
[2020-03-10] MEDS ORDERED: LORazepam 2 MG/ML INJ IV PRN (13:45)
[2020-03-10] MEDS ORDERED: CALCIUM GLUCONATE 1 GM in SODIUM CHLORIDE 0.9% 100 ML IVPB ONE (14:00)
[2020-03-10] MEDS ORDERED: NITROGLYCERIN SL TABS 0.4 MG TAB SUBLINGUAL PRN (15:49)
[2020-03-10] MEDS ORDERED: TRAMADOL HCL 50 MG PO PRN (15:49)
[2020-03-10] MEDS ORDERED: hydrALAZINE HCL 50 MG TAB PO SCH (16:00)
[2020-03-10 16:13] VITALS: BP 106/61; PULSE 44; RESP 18; TEMP 95.2
--- NOTE | 2020-03-10 16:39 | HP ---
HISTORY AND PHYSICAL DATE OF SERVICE: 03/10/2020 CHIEF COMPLAINTS: Shortness of breath as well as fall and weakness. HISTORY OF PRESENT ILLNESS: This 89-year-old gentleman with a past medical history of multiple medical problems, including including COPD, hypertension, hyperlipidemia, history of DJD, history of right pleural effusion, history of prostate cancer, possible lung cancer, being followed by Dr. Jose Castillo in the outpatient setting, has also had right pleural thoracocentesis. The patient had some change in mental status. Patient also had a fall. The patient's son noticed that the patient was on the floor and had some blood on the floor. The patient was slated to have PleurX drainage inserted by Dr. Gonzalez in the near future. There is no history of any fever or rigors prior to that. A detailed history could not be taken from the patient because of the patient's change in mental status. Most of the history is taken my discussion with staff as well as discussion with the patient's son and review of the chart. The patient apparently was on hospice as well. PAST MEDICAL HISTORY: COPD, hypertension, hyperlipidemia, history of DJD, respiratory disorder. HOME MEDICATIONS: Reviewed. They include: 1. Ultram 50 mg q.i.d. p.r.n. 2. Zestril 20 mg daily. 3. Apresoline 50 mg t.i.d. 4. Zinc. 5. Nitrostat 0.4 sublingually p.r.n. 6. Mevacor 20 mg p.o. daily. 7. Lasix 20 mg p.o. daily. 8. Pepcid 20 mg p.o. daily. 9. Diltiazem 180 mg p.o. daily. 10.Calcium 600 mg p.o. daily. ALLERGIES: NONE. Family history, social history, review of systems could not be taken because of the patient's change in mental status. PHYSICAL EXAMINATION: Patient is stuporous and pulse is 49, blood pressure 140/59, respiration 20, temperature 94.6, pulse ox 97% on 4 L. HEENT: Conjunctivae normal. Oral mucosa moist. NECK: No jugular venous distention. No carotid bruit. No lymph node enlargement. CARDIOVASCULAR SYSTEM: S1, S2 muffled. RESPIRATORY SYSTEM: Breath sounds diminished at the bases. A few scattered rhonchi. ABDOMEN: Soft, non-tender. No mass palpable. LEGS: No edema. No swelling. NERVOUS SYSTEM: Diffusely weak. LABS: Labs at this time show WBC 8.6, hemoglobin 11.7, sodium 133, calcium 6.2. UA noted. The CT scan of the head, which was personally reviewed by me, showed no acute findings. Mild to moderate diffuse cerebral atrophy and recurrent large right pleural effusion were also noted. ASSESSMENT: 1. Fall and change in mental status with possible acute metabolic encephalopathy. 2. Possible cerebral concussion. 3. Large recurrent pleural effusion. 4. Anemia, normocytic anemia of chronic disease. 5. Hyponatremia. 6. Hypocalcemia. 7. Hypoalbuminemia with mild protein-calorie malnutrition. 8. History of chronic obstructive pulmonary disease. 9. Hypertension. 10.Hyperlipidemia. 11.History of degenerative joint disease. 12.History of right pleural effusion. 13.History of prostate cancer. 14.History of lung cancer. 15.History of bilateral cataracts. 16.History of nicotine dependence. 17.History of ETOH, 2 to 3 beers a day. 18.NO CODE, NO CPR, NO VENT. RECOMMENDATIONS AND DISCUSSION: In this 89-year-old gentleman who presented with multiple medical issues, at this time I recommend continuing the current medications, continuing with symptomatic treatment. I recommend neurology evaluation, neuro checks. Symptomatic treatment. I would recommend broad-spectrum IV antibiotics. I would also recommend pulmonary consultation, possible thoracocentesis. Resume the home medications. Once again, the prognosis is guarded. Further recommendations to follow. A copy of this dictation is being forwarded to Dr. Jose Castillo, who is the primary physician. MMMIKALL / MAHENDRAN: [id number] /
[2020-03-10] MEDS ORDERED: CALCIUM GLUCONATE 1 GM in SODIUM CHLORIDE 0.9% 100 ML IVPB SCH (21:00)
[2020-03-10] MEDS ORDERED: HEPARIN SODIUM,PORCINE 5,000 UNIT/ML 1 ML VIAL SQ SCH (21:00)
[2020-03-11] MEDS ORDERED: DILTIAZEM HCL 180 MG PO SCH (09:00)
[2020-03-11] MEDS ORDERED: LOVASTATIN 20 MG PO SCH (09:00)
[2020-03-11] MEDS ORDERED: PANTOPRAZOLE 40 MG/10 ML VIAL IVP SCH (09:00)
[2020-03-11] MEDS ORDERED: NON FORMULARY DRUG (Zinc [Zinc] 50 MG) PO SCH (09:00)
[2020-03-11] MEDS ORDERED: FUROSEMIDE 20 MG TAB PO SCH (09:00)
[2020-03-11] MEDS ORDERED: CALCIUM CARBONATE 600 MG PO SCH (09:00)
[2020-03-11] MEDS ORDERED: lisinopriL 20 MG TAB PO SCH (09:00)
== END 2020-03-10 16:00 | disposition other institution (70) ==
LOC: EC 10:54
DX: E83.51 Hypocalcemia (principal); R41.82 Altered mental status, unspecified; S09.90XA Unspecified injury of head, initial encounter; J90 Pleural effusion, not elsewhere classified; E78.5 Hyperlipidemia, unspecified; I10 Essential (primary) hypertension; M19.90 Unspecified osteoarthritis, unspecified site; Z85.46 Personal history of malignant neoplasm of prostate; Z85.118 Personal history of other malignant neoplasm of bronchus and lung; Z87.891 Personal history of nicotine dependence; Z79.891 Long term (current) use of opiate analgesic; Z79.899 Other long term (current) drug therapy; W19.XXXA Unspecified fall, initial encounter
CPT/HCPCS: 36415; 93005; 80053; 83605; 83735; 84484; 85025; 85610; 81003; 80306; 83520; 71046; 72125; 70450; 99285; 51701; 96365; G0480 ×2; J0610; 80320; 80329

== ENCOUNTER 2020-03-10 13:05 | Inpatient (IN) | payer MEDICAID ==
[2020-03-10] MEDS ORDERED: ONDANSETRON 4 MG/2 ML VIAL IVP PRN (15:49)
[2020-03-10] MEDS ORDERED: ACETAMINOPHEN SUPPOSITORY 650 MG SUPP RECTAL PRN (15:49)
[2020-03-10] MEDS ORDERED: bisacodyL 10 MG SUPP RECTAL PRN (15:56)
[2020-03-10] MEDS: SCOPOLAMINE 1.5MG/72HR PATCH TRANSDERM SCH (16:42)
[2020-03-10] MEDS ORDERED: traMADol 50 MG TAB PO PRN (17:20)
[2020-03-10] MEDS: hydrALAZINE HCL 50 MG TAB PO SCH (23:10)
[2020-03-11] MEDS: lisinopriL 20 MG TAB PO SCH (08:37)
[2020-03-11] MEDS: ZINC SULFATE 220 MG CAP PO SCH (08:37)
[2020-03-11] MEDS: DILTIAZEM CD 180 MG CAP.ER.24H PO SCH (08:37)
[2020-03-11] MEDS: FUROSEMIDE 20 MG TAB PO SCH (08:37)
[2020-03-11] MEDS: ATORVASTATIN 10 MG TAB PO SCH (08:38)
[2020-03-11] MEDS: FAMOTIDINE 20 MG TAB PO SCH (08:38)
[2020-03-11] MEDS: hydrALAZINE HCL 50 MG TAB PO SCH ×3 (08:38→21:56)
[2020-03-11] MEDS: CALCIUM CARBONATE 500 MG CHEWABLE PO SCH (08:41)
--- NOTE | 2020-03-11 09:47 | US ---
EXAMINATION TYPE: US chest DATE OF EXAM: 03/11/2020 COMPARISON: Radiographs 03/10/2020 CLINICAL HISTORY: 89-year-old male Markings for thoracentesis by pulmonary staff. Effusion TECHNIQUE: Targeted ultrasound of the posterior lower bilateral hemithoraces FINDINGS: EXAM MEASUREMENTS: Right Pleural Effusion pocket size: 9.1 cm Right skin surface to fluid distance: 3.6 cm Left: No effusion. Right side marked for possible thoracentesis outside the dept. Left side NOT marked for possible thoracentesis outside the dept. Pulmonologists are able to review the images in the patient?s EMR. IMPRESSIONS: Large right effusion with marking performed.
--- NOTE | 2020-03-11 11:14 | P.GSCN ---
History of Present Illness Consult date: 03/11/20 Reason for Consult: Placement of right-sided Pleurx catheter Requesting physician: Barber Botello History of present illness: This is an 89-year-old gentleman who follows on an outpatient basis with Dr. Jose Castillo. He has a previous medical history of hypertension, hyperlipidemia, emphysema, previous tobacco dependence, and prostate cancer treated with brachy therapy. He was worked up in January because of hemoptysis and was found to have a large right-sided pleural effusion which was drained. Cytology was negative. He had undergone bronchoscopy demonstrating an obstructive tumor at the level of the bronchus intermedius with high propensity to bleeding which was not biopsied. The patient had opted for hospice care rather than pursue further diagnostic procedure and chemotherapy. He was followed up as an outpatient by Dr. Meneses on 02/29/2020 and was found to have recurrent right-sided effusion and underwent right-sided thoracentesis which yielded 2.4 L of fluid, cytology was negative. He did have some improvement after thoracentesis. He saw Dr. Gonzalez in consultation last week for possible Pleurx catheter placement. At that appointment the patient was given the choice of further thoracentesis versus Pleurx catheter insertion, knowing that the benefit may be obsolete if the tumor obstructed the right upper lobe. The son seemed to be pushing for Pleurx catheter placement and the patient did eventually agree to proceed with the procedure. He was scheduled to undergo right-sided Pleurx catheter placement this morning as an outpatient. Unfortunately the patient came into the emergency room last night after being found unconscious on the floor at his home with blood present near his head. Apparently the son had called to check on him, received no response and had one of his neighbors physically check on him. He was brought to [facility] emergency room by EMS. The son was very concerned that he may have overdosed, unsure if accidental or intentional. In the emergency room he was unresponsive. CT of the head demonstrated no acute fracture or dislocation of the cervical spine, no acute intracranial hemorrhage or midline shift, mild to moderate diffuse cerebral and chronic small vessel ischemic changes. The patient was admitted to hospice care. The patient did become more arousable later in the evening and appeared oriented, although his words for slurred. Consultation was placed to Dr. Gonzalez for recommendations regarding Rx catheter placement. Review of Systems Review of systems was completed and was negative except as noted - Constitutional Reports daytime sleepiness, Reports fatigue, Reports lethargy, Reports weakness Past Medical History Past Medical History: Cancer, COPD, Hyperlipidemia, Hypertension, Osteoarthritis (OA), Respiratory Disorder Additional Past Medical History / Comment(s): arthritis, emphysema "a touch". RIGHT PLEURAL EFFUSIONS. PROSTATE CANCER. LUNG CANCER. History of Any Multi-Drug Resistant Organisms: None Reported Past Surgical History: Hernia Repair, Prostate Surgery Additional Past Surgical History / Comment(s): bilat cataract removal with lens implants, prostrate CA and had prostate seeded. BRONCHOSPCOPY. RIGHT DIAGNOSTIC THORACENTESIS. Past Anesthesia/Blood Transfusion Reactions: No Reported Reaction Past Psychological History: No Psychological Hx Reported Smoking Status: Former smoker Past Alcohol Use History: Daily Additional Past Alcohol Use History / Comment(s): 2-3 beers/day Past Drug Use History: None Reported - Past Family History Father History Unknown: Yes Family Medical History: Unable to Obtain Medications and Allergies Home Medications Medication Instructions Recorded Confirmed Type Lovastatin [Mevacor] 20 mg PO DAILY 06/16/14 03/10/20 History Calcium Carbonate [Calcium] 600 mg PO DAILY 09/09/17 03/10/20 History Nitroglycerin Sl Tabs [Nitrostat] 0.4 mg SUBLINGUAL Q5M PRN #25 tab 09/10/17 03/10/20 Rx Diltiazem HCl [Diltiazem HCl 24Hr 180 mg PO DAILY 02/06/20 03/10/20 History ER (XR)] Zinc 50 mg PO DAILY 02/06/20 03/10/20 History traMADol HCL 50 mg PO QID PRN 02/06/20 03/10/20 History Famotidine [Pepcid] 10 mg PO DAILY 02/07/20 03/10/20 History Furosemide [Lasix] 20 mg PO DAILY #30 tab 02/10/20 03/10/20 Rx hydrALAZINE HCL [Apresoline] 50 mg PO TID #90 tab 02/10/20 03/10/20 Rx lisinopriL [Zestril] 20 mg PO DAILY #30 tab 02/10/20 03/10/20 Rx Allergies Allergy/AdvReac Type Severity Reaction Status Date / Time No Known Allergies Allergy Verified 03/10/20 16:03 Surgical - Exam Vital Signs Temp Pulse Resp BP Pulse Ox 97.0 F L 59 L 18 167/71 97 03/10/20 16:24 03/10/20 16:24 03/10/20 16:24 03/10/20 16:24 03/10/20 16:24 - General well developed, well nourished, no distress, no pain, chronically ill - Eyes normal ocular movement - ENT decreased hearing - Neck no masses, no bruits, trachea midline - Respiratory Lungs sounds very diminished on the right side. Respirations even, nonlabored. Currently on 5 L nasal cannula with oxygen saturation 97%. - Cardiovascular S1, S2 present. Regular rate and rhythm. Palpable peripheral pulses bilaterally. No edema present. No calf pain or tenderness noted. - Abdomen Abdomen: soft, non tender, bowel sounds - Genitourinary Deferred - Rectum Deferred - Integumentary no rash, no growths - Psychiatric Speech is very slurred, patient is calm and cooperative, mostly sleeping but does arouse to voice Results - Imaging Chest x-ray: report reviewed, image reviewed Additional studies: Head CT reviewed Assessment and Plan Assessment: 1. Right-sided recurrent pleural effusion status post thoracentesis, likely malignant 2. Obstructive tumor at the level of the bronchus intermedius 3. Status post fall at home with decreased level of consciousness, acute mental status change 4. History of hypertension 5. History of hyperlipidemia 6. Emphysema 7. Previous tobacco dependence 8. History of prostate cancer status post brachytherapy Plan: The patient was seen and examined at the bedside with Dr. Gonzalez. Chart/diagnostics were reviewed. The case was discussed with the patient's son who still wanted to explore Pleurx catheter placement even though it was expl ained to him that the patient likely has a very short life span and placement of Pleurx catheter would not necessarily be beneficial, however evaluation for placement of Pleurx catheter could be done if patient recovers from current insult. The patient is in no acute distress. Care was discussed with Dr. Pinto who agreed to perform a thoracentesis which will be done today. Recommend continuing hospice care, extremely poor prognosis, make patient as comfortable as possible. Medical management per primary care/hospice. Thank you Dr. Botello for this consult. Please call us with any further questions. Time with Patient: Greater than 30
--- NOTE | 2020-03-11 11:24 | XR ---
EXAMINATION TYPE: XR chest 1V portable DATE OF EXAM: 03/11/2020 Comparison: 03/10/2020 Clinical History: 89-year-old male right thoracentesis Findings: There is near complete white out of the right hemithorax with volume loss in the right chest that see ms to be increased from 03/10/2020. Left lung and pleural space appears clear. No appreciable pneumoth orax. Impression: Increasing volume loss in the right hemithorax. Possible right mainstem bronchus cut off could repres ent mucous plugging and significant collapse/atelectasis on the right. Underlying effusion and consol idation also likely present. No appreciable pneumothorax.
--- NOTE | 2020-03-11 12:10 | PCN ---
PROCEDURE NOTE PROCEDURE: Right-sided thoracentesis. PREOPERATIVE DIAGNOSIS: Large right pleural effusion. POSTOPERATIVE DIAGNOSIS: Large right pleural effusion. ANESTHESIA USED: 2 mL of 1% lidocaine. PROCEDURE DESCRIPTION: The patient was placed in a sitting upright position, the area below the right scapula, which was localized by ultrasound guidance, this was prepared in a sterile fashion and drapes were applied. The area was locally anesthetized with lidocaine. Then, at that level which is 8th intercostal space and posterior axillary line, the area was locally anesthetized and a 26-gauge needle was inserted at the same site, advanced into the pleural space, fluid was localized with the needle. Then a small tiny incision was made, and a standard thoracentesis catheter and needle were used. Needle inserted at the same site as soon as the fluid was obtained. The catheter was advanced out of the needle into the pleural space. Freely flowing fluid was removed, roughly 2100 mL of free-flowing fluid, thomas in color, and all drained and sent for different diagnostic studies. No evidence of any immediate complications. However, followup chest x-ray continued to show significant opacification of the right lung consistent with a right mainstem endobronchial tumor because of tracheal shift to the right/ipsilateral side. Fluid was sent for the further diagnostic studies including cytology. MMODL / IJN: [id number] /
--- NOTE | 2020-03-11 14:13 | P.CNPUL ---
History of Present Illness Consult date: 03/11/20 Requesting physician: Barber Botello Reason for consult: dyspnea, abnormal CXR/CT Chief complaint: Status post fall History of present illness: This is an 89-year-old gentleman with history of hyperlipidemia hypertension, chronic obstructive pulmonary disease, prostate cancer with seed placement, recurrent right-sided pleural effusion and concerns for possible lung cancer. Bronchoscopy had previously been performed but no biopsies were able to be taken due to excessive bleeding. He's had 2 thoracentesis that were nondiagnostic. The plan was for Pleurx catheter placement however the patient was brought in again yesterday to the emergency room after sustaining a fall at home. There is some question about possible overdose. Urine drug screen was positive for benzodiazepines. CoVID screen negative. Chest x-ray revealed chronic parenchymal changes and cardiomegaly with recurrent large right-sided pleural effusion. We are consulted for the same. He is seen today on the regular [facility] floor. Currently awake and alert in no acute distress. Confused to time and place. Maintaining O2 saturations in the mid 90s on 5 L/m per nasal cannula. He is afebrile. Hemodynamically stable. Sodium 133. Potassium 4.1. Creatinine 0.99. INR 1.1. Heme globin 11.7. White count 8.6. Review of Systems ROS unobtainable: due to mental status Past Medical History Past Medical History: Cancer, COPD, Hyperlipidemia, Hypertension, Osteoarthritis (OA), Respiratory Disorder Additional Past Medical History / Comment(s): arthritis, emphysema "a touch". RIGHT PLEURAL EFFUSIONS. PROSTATE CANCER. LUNG CANCER. History of Any Multi-Drug Resistant Organisms: None Reported Past Surgical History: Hernia Repair, Prostate Surgery Additional Past Surgical History / Comment(s): bilat cataract removal with lens implants, prostrate CA and had prostate seeded. BRONCHOSPCOPY. RIGHT DIAGNOSTIC THORACENTESIS. Past Anesthesia/Blood Transfusion Reactions: No Reported Reaction Past Psychological History: No Psychological Hx Reported Smoking Status: Former smoker Past Alcohol Use History: Daily Additional Past Alcohol Use History / Comment(s): 2-3 beers/day Past Drug Use History: None Reported - Past Family History Father History Unknown: Yes Family Medical History: Unable to Obtain Medications and Allergies Home Medications Medication Instructions Recorded Confirmed Type Lovastatin [Mevacor] 20 mg PO DAILY 06/16/14 03/10/20 History Calcium Carbonate [Calcium] 600 mg PO DAILY 09/09/17 03/10/20 History Nitroglycerin Sl Tabs [Nitrostat] 0.4 mg SUBLINGUAL Q5M PRN #25 tab 09/10/17 03/10/20 Rx Diltiazem HCl [Diltiazem HCl 24Hr 180 mg PO DAILY 02/06/20 03/10/20 History ER (XR)] Zinc 50 mg PO DAILY 02/06/20 03/10/20 History traMADol HCL 50 mg PO QID PRN 02/06/20 03/10/20 History Famotidine [Pepcid] 10 mg PO DAILY 02/07/20 03/10/20 History Furosemide [Lasix] 20 mg PO DAILY #30 tab 02/10/20 03/10/20 Rx hydrALAZINE HCL [Apresoline] 50 mg PO TID #90 tab 02/10/20 03/10/20 Rx lisinopriL [Zestril] 20 mg PO DAILY #30 tab 02/10/20 03/10/20 Rx Allergies Allergy/AdvReac Type Severity Reaction Status Date / Time No Known Allergies Allergy Verified 03/10/20 16:03 Physical Exam Vitals: Vital Signs Temp Pulse Resp BP Pulse Ox 03/11/20 07:47 97.9 F 74 16 139/65 97 03/10/20 19:08 97.1 F L 64 146/72 96 03/10/20 16:24 97.0 F L 59 L 18 167/71 97 Intake and Output 03/10/20 03/11/20 03/11/20 22:59 06:59 14:59 Intake Total 40 Balance 40 Intake: IV 40 .9 @ kvo 40 Other: # Voids 1 Weight 62.369 kg GENERAL EXAM: Alert, pleasant 89-year-old gentleman, on 5 L nasal cannula comfortable in no apparent distress. HEAD: Normocephalic. EYES: Normal reaction of pupils, equal size. NOSE: Clear with pink turbinates. THROAT: No erythema or exudates. NECK: No masses, no JVD. CHEST: No chest wall deformity. LUNGS: Equal air entry with crackles in the right lung, diminished, dullness CVS: S1 and S2 normal with no audible murmur, regular rhythm. ABDOMEN: No hepatosplenomegaly, normal bowel sounds, no guarding or rigidity. SPINE: No scoliosis or deformity SKIN: No rashes CENTRAL NERVOUS SYSTEM: No focal deficits, tone is normal in all 4 extremities. EXTREMITIES: There is no peripheral edema. No clubbing, no cyanosis. Peripheral pulses are intact. Results - Diagnostic Findings Chest x-ray: image reviewed Assessment and Plan Assessment: 1 Status post fall with question of overdose on benzodiazepines. Computed tomography scan revealed no acute fracture or dislocation of the cervical spine. No acute intracranial hemorrhage or midline shift. 2 Recurrent large right-sided pleural effusion, previous thoracentesis 2 negative for malignancy suspect lung cancer 3 Right hilar obstructing mass or neoplasm associated with thoracic adenopathy, bronchoscopy on 02/09/2020 revealed completely obstructed bronchus intermedius with irregular and the bronchial tumor highly suspicious for lung cancer however biopsies were not attempted related to intermittent bleeding throughout the procedure 4 History of prostate cancer 5 Recent history of hemoptysis 6 chronic obstructive pulmonary disease 7 History of chronic tobacco dependence 8 Hypertension 9 Hyperlipidemia Plan: The patient was seen and evaluated by Dr. Palacios Chest x-ray and labs reviewed He did go ahead and perform a right-sided thoracentesis Fluid again sent for cytology Follow-up chest x-ray reveals ongoing right-sided infiltrate Known completely obstructed bronchus intermedius with irregularity in the bronchial tumor highly suspicious for lung cancer Previous bronchoscopy unable to obtain biopsies due to bleeding throughout the procedure Overall prognosis is quite poor and guarded The patient is a DO NOT RESUSCITATE/DO NOT INTUBATE CODE STATUS We will continue to follow I, the cosigning physician, performed a history & physical examination of the patient. Lungs sounds with crackles, diminished and dullness in the right lung Maintaining good O2 saturations in the 90s on 5 L/m per nasal cannula. I discussed the assessment and plan of care with my nurse practitioner, Lo Norris. I attest to the above consultation as dictated by her. Time with Patient: Greater than 30
--- NOTE | 2020-03-11 15:57 | PN ---
PROGRESS NOTE DATE OF SERVICE: 03/11/2020 This 89-year-old gentleman with a past medical history of multiple medical problems was admitted with significant right pleural effusion following change in mental status. The patient underwent right thoracocentesis by Dr. Palacios; about 2.1 L of thomas-colored fluid was noted and subsequently patient was suspected to have an endobronchial tumor, also. The patient was also originally slated to have PleurX drainage by Cardiothoracic Surgery, which will not be done, per staff. The patient continues to be confused. Past medical history reviewed. Review of systems could not be taken; the patient is confused. CURRENT MEDICATIONS: Reviewed. They include: Tylenol p.r.n., Lipitor, Dulcolax, Tums, Cardizem CD, Pepcid, Lasix, apresoline, Zestril, Ativan, morphine sulfate, Zofran, Ultram, Orazinc. PHYSICAL EXAMINATION: Patient is alert, oriented x1. Pulse 74, blood pressure 139/65, respiration 16, temperature 97.9, pulse ox 97% on 5 L. HEENT: Conjunctivae normal. NECK: No jugular venous distention. CARDIOVASCULAR SYSTEM: S1, S2 muffled. RESPIRATORY SYSTEM: Breath sounds diminished at the bases. A few scattered rhonchi and crackles. ABDOMEN: Soft, non-tender. LEGS: No edema. No swelling. NERVOUS SYSTEM: No focal deficit. LABS: Hemoglobin 11.7. Other labs are noted. ASSESSMENT: 1. Fall and change in mental status with possible acute metabolic encephalopathy. 2. Large right pleural effusion, status post thoracocentesis. 3. Possible endobronchial tumor on the right side. 4. Possible cerebral concussion. 5. Anemia, normocytic anemia of chronic disease. 6. Hyponatremia. 7. Hypocalcemia. 8. Hypoalbuminemia with mild protein-calorie malnutrition. 9. History of chronic obstructive pulmonary disease. 10.Hypertension. 11.Hyperlipidemia. 12.History of degenerative joint disease. 13.History of right pleural effusion. 14.History of prostate cancer. 15.History of lung cancer. 16.History of bilateral cataracts. 17.History of nicotine dependence. 18.History of ETOH, 2 to 3 beers a day. 19.NO CODE, NO CPR, NO VENT. RECOMMENDATIONS AND DISCUSSION: I recommend to continue current medications, continue with the monitoring, symptomatic treatment. Closely follow with Pulmonary. Repeat labs. Continue with current medications. Chest x-ray which was done after the thoracocentesis, which was reviewed personally by me, showed still significant pleural effusion and some collapse as well. The previous CT scan of the chest done on 02/07/2020, about a month ago, showed a right hilar obstructing mass or neoplasm with associated thoracic adenopathy. Will continue to monitor along with Dr. Palacios. Prognosis guarded because of multiple complex medical issues. Further recommendations to follow. MMODL / IJN: [id number] /
[2020-03-12 08:12] LABS: Basophils % (A) 0 %; Eosinophils # (A) 0.2 k/uL (0-0.7); Eosinophils % (A) 2 %; HCT 40.5 % (39.0-53.0); HGB 12.9 gm/dL (13.0-17.5); Lymphocytes # (A) 0.7 k/uL (1.0-4.8); Lymphocytes % (A) 7 %; MCH 28.7 pg (25.0-35.0); MCHC 31.9 g/dL (31.0-37.0); MCV 89.9 fL (80.0-100.0); Mean Platelet Volume 7.3; Monocytes # (A) 0.7 k/uL (0-1.0); Monocytes % (A) 7 %; Neutrophils # (A) 8.2 k/uL (1.3-7.7); Neutrophils % (A) 82 %; Platelet Count 362 k/uL (150-450); RDW 13.8 % (11.5-15.5)
[2020-03-12 08:25] LABS: Potassium 4.1 mmol/L (3.5-5.1)
[2020-03-12] MEDS: FAMOTIDINE 20 MG TAB PO SCH (08:45)
[2020-03-12] MEDS: ATORVASTATIN 10 MG TAB PO SCH (08:45)
[2020-03-12] MEDS: FUROSEMIDE 20 MG TAB PO SCH (08:45)
[2020-03-12] MEDS: DILTIAZEM CD 180 MG CAP.ER.24H PO SCH (08:45)
[2020-03-12] MEDS: ZINC SULFATE 220 MG CAP PO SCH (08:45)
[2020-03-12] MEDS: CALCIUM CARBONATE 500 MG CHEWABLE PO SCH (08:45)
[2020-03-12] MEDS: lisinopriL 20 MG TAB PO SCH (08:45)
[2020-03-12] MEDS: hydrALAZINE HCL 50 MG TAB PO SCH ×3 (08:45→20:21)
--- NOTE | 2020-03-12 11:12 | P.PN ---
Subjective Progress Note Date: 03/12/20 Principal diagnosis: Recurrent right lung pleural effusion This is an 89-year-old gentleman with history of hyperlipidemia hypertension, chronic obstructive pulmonary disease, prostate cancer with seed placement, recurrent right-sided pleural effusion and concerns for possible lung cancer. Bronchoscopy had previously been performed but no biopsies were able to be taken due to excessive bleeding. He's had 2 thoracentesis that were nondiagnostic. The plan was for Pleurx catheter placement however the patient was brought in again yesterday to the emergency room after sustaining a fall at home. There is some question about possible overdose. Urine drug screen was positive for benzodiazepines. CoVID screen negative. Chest x-ray revealed chronic parenchymal changes and cardiomegaly with recurrent large right-sided pleural effusion. We are consulted for the same. He is seen today on the regular medical floor. Currently awake and alert in no acute distress. Confused to time and place. Maintaining O2 saturations in the mid 90s on 5 L/m per nasal cannula. He is afebrile. Hemodynamically stable. Sodium 133. Potassium 4.1. Creatinine 0.99. INR 1.1. Heme globin 11.7. White count 8.6. The patient is seen today 03/12/2020 in follow-up on the selective care unit. He is currently sitting up in bed. Awake and alert in no acute distress. Breathing a bit easier today compared to yesterday. Maintaining O2 saturations in the low 90s on 4 L/m per nasal cannula. She's afebrile. Hemodynamically stable. White count 10.0. Hemoglobin 12.9. Sodium 136. Potassium 4.1. Creatinine 1.40. Pleural fluid cytology from yesterday's thoracentesis pending. Today's chest x-ray shows significant improvement in aeration of the right lung with residual pleural effusion. Objective - Vital Signs Vital signs: Vital Signs Temp 98.4 F 03/12/20 07:00 Pulse 81 03/12/20 07:00 Resp 17 03/12/20 07:00 BP 123/63 03/12/20 07:00 Pulse Ox 92 L 03/12/20 07:00 Intake & Output 03/11/20 03/12/20 03/12/20 18:59 06:59 18:59 Output Total 700 Balance -700 Output: Urine 700 Other: Voiding Method Bedside Commode Urinal - Exam GENERAL EXAM: Alert, pleasant 89-year-old gentleman, on 4 L nasal cannula comfortable in no apparent distress. HEAD: Normocephalic. EYES: Normal reaction of pupils, equal size. NOSE: Clear with pink turbinates. THROAT: No erythema or exudates. NECK: No masses, no JVD. CHEST: No chest wall deformity. LUNGS: Equal air entry with crackles in the right lung, diminished, dullness CVS: S1 and S2 normal with no audible murmur, regular rhythm. ABDOMEN: No hepatosplenomegaly, normal bowel sounds, no guarding or rigidity. SPINE: No scoliosis or deformity SKIN: No rashes CENTRAL NERVOUS SYSTEM: No focal deficits, tone is normal in all 4 extremities. EXTREMITIES: There is no peripheral edema. No clubbing, no cyanosis. Peripheral pulses are intact. - Labs CBC & Chem 7: 03/12/20 07:36 03/12/20 07:36 Labs: Abnormal Lab Results - Last 24 Hours (Table) 03/12/20 03/12/20 Range/Units 07:36 07:36 Hgb 12.9 L (13.0-17.5) gm/dL Neutrophils # 8.2 H (1.3-7.7) k/uL Lymphocytes # 0.7 L (1.0-4.8) k/uL Sodium 136 L (137-145) mmol/L Creatinine 1.40 H (0.66-1.25) mg/dL Glucose 109 H (74-99) mg/dL Assessment and Plan Assessment: 1 Status post fall with question of overdose on benzodiazepines. Computed tomography scan revealed no acute fracture or dislocation of the cervical spine. No acute intracranial hemorrhage or midline shift. 2 Recurrent large right-sided pleural effusion, previous thoracentesis 2 negative for malignancy suspect lung cancer, third thoracentesis performed on 03/11/2020 with approximate 2100 mL removed. Pathology pending 3 Right hilar obstructing mass or neoplasm associated with thoracic adenopathy, bronchoscopy on 02/09/2020 revealed completely obstructed bronchus intermedius with irregular and the bronchial tumor highly suspicious for lung cancer however biopsies were not attempted related to intermittent bleeding throughout the procedure 4 History of prostate cancer 5 Recent history of hemoptysis 6 chronic obstructive pulmonary disease 7 History of chronic tobacco dependence 8 Hypertension 9 Hyperlipidemia Plan: The patient was seen and evaluated by Dr. Palacios Chest x-ray and labs reviewed Thoracentesis performed yesterday, fluid again sent for cytology Known obstructed right bronchus intermedius with irregularity in the bronchial tumor highly suspicious for lung cancer Overall prognosis is quite poor and guarded DO NOT RESUSCITATE/DO NOT INTUBATE CODE STATUS We will continue to follow I, the cosigning physician, performed a history & physical examination of the patient. Lungs sounds with crackles, diminished and dullness in the right lung Maintaining good O2 saturations in the 90s on 4 L/m per nasal cannula. I discussed the assessment and plan of care with my nurse practitioner, Lo Norris. I attest to the above note as dictated by her.
--- NOTE | 2020-03-12 12:09 | XR ---
EXAMINATION TYPE: XR chest 1V portable DATE OF EXAM: 03/12/2020 COMPARISON: 03/11/2020 HISTORY: Follow-up lung cancer TECHNIQUE: Single frontal view of the chest is obtained. FINDINGS: There is right-sided consolidation and pleural effusion. There is a coarsened interstitium with tiny left effusion. Right hilar soft tissue prominence noted. Atherosclerotic change aorta. Dif fuse osteopenia. No pneumothorax. IMPRESSION: 1. Prominent right hilum underlying mass or adenopathy in the differential diagnosis. 2. Bilateral infiltrate and pleural effusion correlate to exclude pneumonia or venous congestion.
[2020-03-12 15:02] VITALS: BMI 18.6
[2020-03-12] MEDS: diphenhydrAMINE 25 MG CAP PO SCH (20:21)
[2020-03-13] MEDS: ZINC SULFATE 220 MG CAP PO SCH (08:17)
[2020-03-13] MEDS: DILTIAZEM CD 180 MG CAP.ER.24H PO SCH (08:18)
[2020-03-13] MEDS: hydrALAZINE HCL 50 MG TAB PO SCH ×3 (08:18→22:13)
[2020-03-13] MEDS: diphenhydrAMINE 25 MG CAP PO SCH ×2 (08:18→22:12)
[2020-03-13] MEDS: lisinopriL 20 MG TAB PO SCH (08:18)
[2020-03-13] MEDS: ATORVASTATIN 10 MG TAB PO SCH (08:18)
[2020-03-13] MEDS: FUROSEMIDE 20 MG TAB PO SCH (08:18)
[2020-03-13] MEDS: FAMOTIDINE 20 MG TAB PO SCH (08:18)
[2020-03-13] MEDS: CALCIUM CARBONATE 500 MG CHEWABLE PO SCH (08:19)
[2020-03-13 08:31] LABS: Basophils % (A) 0 %; Eosinophils # (A) 0.1 k/uL (0-0.7); Eosinophils % (A) 1 %; HCT 42.5 % (39.0-53.0); HGB 13.7 gm/dL (13.0-17.5); Lymphocytes # (A) 0.9 k/uL (1.0-4.8); Lymphocytes % (A) 7 %; MCH 28.5 pg (25.0-35.0); MCHC 32.2 g/dL (31.0-37.0); MCV 88.5 fL (80.0-100.0); Mean Platelet Volume 7.6; Monocytes # (A) 0.9 k/uL (0-1.0); Monocytes % (A) 7 %; Neutrophils # (A) 10.5 k/uL (1.3-7.7); Neutrophils % (A) 83 %; Platelet Count 375 k/uL (150-450); RDW 13.9 % (11.5-15.5); WBC 12.7 k/uL (3.8-10.6)
[2020-03-13 08:37] LABS: Calcium 9.4 mg/dL (8.4-10.2); Potassium 4.6 mmol/L (3.5-5.1)
--- NOTE | 2020-03-13 12:57 | P.PN ---
Subjective Progress Note Date: 03/13/20 Principal diagnosis: Recurrent right lung pleural effusion This is an 89-year-old gentleman with history of hyperlipidemia hypertension, chronic obstructive pulmonary disease, prostate cancer with seed placement, recurrent right-sided pleural effusion and concerns for possible lung cancer. Bronchoscopy had previously been performed but no biopsies were able to be taken due to excessive bleeding. He's had 2 thoracentesis that were nondiagnostic. The plan was for Pleurx catheter placement however the patient was brought in again yesterday to the emergency room after sustaining a fall at home. There is some question about possible overdose. Urine drug screen was positive for benzodiazepines. CoVID screen negative. Chest x-ray revealed chronic parenchymal changes and cardiomegaly with recurrent large right-sided pleural effusion. We are consulted for the same. He is seen today on the regular medical floor. Currently awake and alert in no acute distress. Confused to time and place. Maintaining O2 saturations in the mid 90s on 5 L/m per nasal cannula. He is afebrile. Hemodynamically stable. Sodium 133. Potassium 4.1. Creatinine 0.99. INR 1.1. Heme globin 11.7. White count 8.6. The patient is seen today 03/12/2020 in follow-up on the selective care unit. He is currently sitting up in bed. Awake and alert in no acute distress. Breathing a bit easier today compared to yesterday. Maintaining O2 saturations in the low 90s on 4 L/m per nasal cannula. She's afebrile. Hemodynamically stable. White count 10.0. Hemoglobin 12.9. Sodium 136. Potassium 4.1. Creatinine 1.40. Pleural fluid cytology from yesterday's thoracentesis pending. Today's chest x-ray shows significant improvement in aeration of the right lung with residual pleural effusion. The patient is seen today 03/13/2020 in follow-up on the selective care unit. He is resting comfortably in bed. Awake and alert in no acute distress. Maintaining O2 saturations in the upper 90s on 5 L/m per nasal cannula. He is afebrile. Hemodynamically stable. White count 12.7. Hemoglobin 13.7. Sodium 137. Potassium 4.6. Creatinine 1.42. Objective - Vital Signs Vital signs: Vital Signs Temp 98.7 F 03/13/20 00:03 Pulse 85 03/13/20 00:03 Resp 15 03/13/20 00:03 BP 129/67 03/13/20 00:03 Pulse Ox 97 03/13/20 00:03 Intake & Output 03/12/20 03/13/20 03/13/20 18:59 06:59 18:59 Intake Total 540 Output Total 850 1 Balance 540 -850 -1 Weight 62.369 kg Intake: Oral 540 Output: Urine 850 Stool 1 Other: Voiding Method Indwelling Catheter # Voids 0 - Exam GENERAL EXAM: Alert, pleasant 89-year-old gentleman, on 5 L nasal cannula comfortable in no apparent distress. HEAD: Normocephalic. EYES: Normal reaction of pupils, equal size. NOSE: Clear with pink turbinates. THROAT: No erythema or exudates. NECK: No masses, no JVD. CHEST: No chest wall deformity. LUNGS: Equal air entry with crackles in the right lung, diminished, dullness CVS: S1 and S2 normal with no audible murmur, regular rhythm. ABDOMEN: No hepatosplenomegaly, normal bowel sounds, no guarding or rigidity. SPINE: No scoliosis or deformity SKIN: No rashes CENTRAL NERVOUS SYSTEM: No focal deficits, tone is normal in all 4 extremities. EXTREMITIES: There is no peripheral edema. No clubbing, no cyanosis. Peripheral pulses are intact. - Labs CBC & Chem 7: 03/13/20 07:25 03/13/20 07:25 Labs: Abnormal Lab Results - Last 24 Hours (Table) 03/13/20 03/13/20 Range/Units 07:25 07:25 WBC 12.7 H (3.8-10.6) k/uL Neutrophils # 10.5 H (1.3-7.7) k/uL Lymphocytes # 0.9 L (1.0-4.8) k/uL Creatinine 1.42 H (0.66-1.25) mg/dL Glucose 121 H (74-99) mg/dL Assessment and Plan Assessment: 1 Status post fall with question of overdose on benzodiazepines. Computed tomography scan revealed no acute fracture or dislocation of the cervical spine. No acute intracranial hemorrhage or midline shift. 2 Recurrent large right-sided pleural effusion, previous thoracentesis 2 negative for malignancy suspect lung cancer, third thoracentesis performed on 03/11/2020 with approximate 2100 mL removed. Pathology pending 3 Right hilar obstructing mass or neoplasm associated with thoracic adenopathy, bronchoscopy on 02/09/2020 revealed completely obstructed bronchus intermedius with irregular and the bronchial tumor highly suspicious for lung cancer however biopsies were not attempted related to intermittent bleeding throughout the procedure 4 History of prostate cancer 5 Recent history of hemoptysis 6 chronic obstructive pulmonary disease 7 History of chronic tobacco dependence 8 Hypertension 9 Hyperlipidemia Plan: The patient was seen and evaluated by Dr. Palacios Known obstructed right bronchus intermedius with irregularity in the bronchial tumor highly suspicious for lung cancer Overall prognosis is quite poor and guarded DO NOT RESUSCITATE/DO NOT INTUBATE CODE STATUS Titrate down the FiO2 as tolerated We will continue to follow I, the cosigning physician, performed a history & physical examination of the patient. Lungs sounds with crackles, diminished and dullness in the right lung Maintaining good O2 saturations in the 90s on 5 L/m per nasal cannula. I discussed the assessment and plan of care with my nurse practitioner, Lo Norris. I attest to the above note as dictated by her.
[2020-03-13] MEDS: SCOPOLAMINE 1.5MG/72HR PATCH TRANSDERM SCH (15:48)
--- NOTE | 2020-03-13 17:37 | P.PN ---
Subjective Progress Note Date: 03/13/20 Principal diagnosis: Recurrent right-sided pleural effusion 89-year-old gentleman with history of hyperlipidemia hypertension, chronic obstructive pulmonary disease, prostate cancer with seed placement, recurrent right-sided pleural effusion and concerns for possible lung cancer. Bronchoscopy had previously been performed but no biopsies were able to be taken due to excessive bleeding. He's had 2 thoracentesis that were nondiagnostic. The plan was for Pleurx catheter placement however the patient was brought in again yesterday to the emergency room after sustaining a fall at home. There is some question about possible overdose. Urine drug screen was positive for cecilia odiazepines. CoVID screen negative. Chest x-ray revealed chronic parenchymal changes and cardiomegaly with recurrent large right-sided pleural effusion. 03/13/2020 Patient is seen in follow-up on the selective care unit. He is resting comfortably in bed. Awake and alert in no acute distress. Maintaining O2 saturations in the upper 90s on 5 L/m per nasal cannula. He is afebrile. Hemodynamically stable. White count 12.7. Hemoglobin 13.7. Sodium 137. Potassium 4.6. Creatinine 1.42. Patient has a known right intermedius bronchus obstruction with irregular mass highly suspicious of bronchial tumor; patient has undergone thoracentesis twice which has been nonconclusive; recent thoracentesis fluid has been sent for cytology which is pending Objective - Vital Signs Vital signs: Vital Signs Temp 98.7 F 03/13/20 00:03 Pulse 85 03/13/20 00:03 Resp 15 03/13/20 00:03 BP 129/67 03/13/20 00:03 Pulse Ox 97 03/13/20 00:03 Intake & Output 03/12/20 03/13/20 03/13/20 18:59 06:59 18:59 Intake Total 540 Output Total 850 Balance 540 -850 Weight 62.369 kg Intake: Oral 540 Output: Urine 850 Other: Voiding Method Indwelling Catheter # Voids 0 - Exam PHYSICAL EXAMINATION: GENERAL: The patient is alert and oriented x3, not in any acute distress. Well developed, well nourished. HEENT: Pupils are round and equally reacting to light. EOMI. No scleral icterus. No conjunctival pallor. Normocephalic, atraumatic. No pharyngeal erythema. No thyromegaly. CARDIOVASCULAR: S1 and S2 present. No murmurs, rubs, or gallops. PULMONARY: Chest is clear to auscultation, no wheezing or crackles. ABDOMEN: Soft, nontender, nondistended, normoactive bowel sounds. No palpable organomegaly. MUSCULOSKELETAL: No joint swelling or deformity. EXTREMITIES: No cyanosis, clubbing, or pedal edema. NEUROLOGICAL: Gross neurological examination did not reveal any focal deficits. SKIN: No rashes. - Labs CBC & Chem 7: 03/13/20 07:25 03/13/20 07:25 Labs: Abnormal Lab Results - Last 24 Hours (Table) 03/13/20 03/13/20 Range/Units 07:25 07:25 WBC 12.7 H (3.8-10.6) k/uL Neutrophils # 10.5 H (1.3-7.7) k/uL Lymphocytes # 0.9 L (1.0-4.8) k/uL Creatinine 1.42 H (0.66-1.25) mg/dL Glucose 121 H (74-99) mg/dL Assessment and Plan Assessment: 1. Status post fall with question of overdose on benzodiazepines. Computed tomography scan revealed no acute fracture or dislocation of the cervical spine. No acute intracranial hemorrhage or midline shift. 2. Recurrent large right-sided pleural effusion, previous thoracentesis 2 negative for malignancy suspect lung cancer, third thoracentesis performed on 03/11/2020 with approximate 2100 mL removed. Pathology pending 3. Right hilar obstructing mass or neoplasm associated with thoracic adenopathy, bronchoscopy on 02/09/2020 revealed completely obstructed bronchus intermedius with irregular and the bronchial tumor highly suspicious for lung cancer however biopsies were not attempted related to intermittent bleeding throughout the procedure 4. Chronic obstructive pulmonary disease; not in exacerbation 5. Hypertension; stable on Cardizem 180 mg daily; lisinopril 20 mg daily 6. Hyperlipidemia; Lipitor 10 mg by mouth daily at bedtime DVT prophylaxis; SCDs CODE STATUS; DO NOT RESUSCITATE Time with Patient: Greater than 30
[2020-03-14] MEDS: FUROSEMIDE 20 MG TAB PO SCH (07:50)
[2020-03-14] MEDS: diphenhydrAMINE 25 MG CAP PO SCH (07:50)
[2020-03-14] MEDS: ATORVASTATIN 10 MG TAB PO SCH (07:50)
[2020-03-14] MEDS: FAMOTIDINE 20 MG TAB PO SCH (07:50)
[2020-03-14] MEDS: hydrALAZINE HCL 50 MG TAB PO SCH ×3 (07:50→20:45)
[2020-03-14] MEDS: lisinopriL 20 MG TAB PO SCH (07:50)
[2020-03-14] MEDS: CALCIUM CARBONATE 500 MG CHEWABLE PO SCH (07:50)
[2020-03-14] MEDS: ZINC SULFATE 220 MG CAP PO SCH (07:51)
[2020-03-14] MEDS: DILTIAZEM CD 180 MG CAP.ER.24H PO SCH (07:51)
[2020-03-14 08:18] LABS: Basophils # (A) 0.1 k/uL (0-0.2); Basophils % (A) 1 %; Eosinophils # (A) 0.2 k/uL (0-0.7); Eosinophils % (A) 2 %; HCT 41.9 % (39.0-53.0); HGB 13.4 gm/dL (13.0-17.5); Lymphocytes # (A) 0.9 k/uL (1.0-4.8); Lymphocytes % (A) 8 %; MCH 28.7 pg (25.0-35.0); MCHC 32.1 g/dL (31.0-37.0); MCV 89.4 fL (80.0-100.0); Mean Platelet Volume 7.4; Monocytes # (A) 0.8 k/uL (0-1.0); Monocytes % (A) 7 %; Neutrophils # (A) 8.1 k/uL (1.3-7.7); Neutrophils % (A) 78 %; Platelet Count 393 k/uL (150-450); RBC 4.69 m/uL (4.30-5.90); WBC 10.4 k/uL (3.8-10.6)
[2020-03-14 08:26] LABS: Calcium 9.2 mg/dL (8.4-10.2); Potassium 4.9 mmol/L (3.5-5.1)
--- NOTE | 2020-03-14 13:11 | P.NPCON ---
History of Present Illness - Reason for Consult acute renal failure - History of Present Illness Reason for consultation: Acute kidney injury History of present illness: Patient is a 89-year-old male seen in renal consultation for acute kidney injury. Patient's baseline creatinine is near 1. It is up to 1.94 today. Patient presented to the hospital after he was found unconscious by the EMS. Son is present at bedside. The son states that he overdosed on Valium as well as Ultram. Patient does have bronchial tumor and has recurrent pleural effusions. He was noted to have a large right-sided pleural effusions and underwent thoracentesis on March 11 2.1 L drained. Patient's urinalysis is benign. He is maintained on antihypertensives including lisinopril. I don't see nonsteroidals and his home medications. He has a Land catheter. Hemodynamically stable. Pleurx catheter was being considered however due to patient's guarded prognosis thoracentesis was done. No edema. Vital signs are stable. General: The patient appeared well nourished and normally developed. HEENT: Head exam is unremarkable. Neck is without jugular venous distension. LUNGS: Breath sounds decreased. HEART: Rate and Rhythm are regular. ABDOMEN: Soft, nontender. EXTREMITITES: No edema. Past Medical History Past Medical History: Cancer, COPD, Hyperlipidemia, Hypertension, Osteoarthritis (OA), Respiratory Disorder Additional Past Medical History / Comment(s): arthritis, emphysema "a touch". RIGHT PLEURAL EFFUSIONS. PROSTATE CANCER. LUNG CANCER. History of Any Multi-Drug Resistant Organisms: None Reported Past Surgical History: Hernia Repair, Prostate Surgery Additional Past Surgical History / Comment(s): bilat cataract removal with lens implants, prostrate CA and had prostate seeded. BRONCHOSPCOPY. RIGHT DIAGNOSTIC THORACENTESIS. Past Anesthesia/Blood Transfusion Reactions: No Reported Reaction Past Psychological History: No Psychological Hx Reported Smoking Status: Former smoker Past Alcohol Use History: Daily Additional Past Alcohol Use History / Comment(s): 2-3 beers/day Past Drug Use History: None Reported - Past Family History Father History Unknown: Yes Family Medical History: Unable to Obtain Medications and Allergies Home Medications Medication Instructions Recorded Confirmed Type Lovastatin [Mevacor] 20 mg PO DAILY 06/16/14 03/10/20 History Calcium Carbonate [Calcium] 600 mg PO DAILY 09/09/17 03/10/20 History Nitroglycerin Sl Tabs [Nitrostat] 0.4 mg SUBLINGUAL Q5M PRN #25 tab 09/10/17 03/10/20 Rx Diltiazem HCl [Diltiazem HCl 24Hr 180 mg PO DAILY 02/06/20 03/10/20 History ER (XR)] Zinc 50 mg PO DAILY 02/06/20 03/10/20 History traMADol HCL 50 mg PO QID PRN 02/06/20 03/10/20 History Famotidine [Pepcid] 10 mg PO DAILY 02/07/20 03/10/20 History Furosemide [Lasix] 20 mg PO DAILY #30 tab 02/10/20 03/10/20 Rx hydrALAZINE HCL [Apresoline] 50 mg PO TID #90 tab 02/10/20 03/10/20 Rx lisinopriL [Zestril] 20 mg PO DAILY #30 tab 02/10/20 03/10/20 Rx Allergies Allergy/AdvReac Type Severity Reaction Status Date / Time No Known Allergies Allergy Verified 03/10/20 16:03 Physical Exam Vitals: Vital Signs Temp Pulse Resp BP Pulse Ox 03/14/20 07:04 97.6 F 61 16 124/62 92 L 03/14/20 00:33 98.2 F 59 L 16 114/55 96 03/13/20 20:00 97.7 F 72 20 100/59 94 L 03/13/20 14:21 97.8 F 73 20 110/56 98 Intake and Output 03/13/20 03/14/20 03/14/20 22:59 06:59 14:59 Intake Total 60 Output Total 2 3 201 Balance 58 -3 -201 Intake: Oral 60 Output: Urine 200 Stool 2 3 1 Other: Voiding Method Indwelling Catheter Indwelling Catheter Indwelling Catheter # Voids 0 0 1 # Bowel Movements 1 Results - Lab Results Most recent lab results Calcium 9.2 mg/dL (8.4-10.2) 03/14/20 07:49 03/14/20 07:49 03/14/20 07:49 Assessment and Plan Plan: Assessment: 1. Acute kidney injury secondary to ATN secondary to hemodynamic instability further worsened with the use of lisinopril and Lasix. Baseline creatinine 1. It is up to 1.94 today. UA from 03/10/2020 completely benign. 2. Benign hypertension. Stable. 3. Bronchial tumor with thoracic adenopathy. 4. Recurrent large right-sided pleural effusions status post 3 thoracentesis. Most recent on March 11 2.1 L drained. 5. Potential overdose on Valium and Ultram. Plan: I will change Lasix to Demadex 20 mg once daily. Discontinue lisinopril. Overall prognosis guarded. Hospice being considered. Patient is not a candidate for renal replacement therapy. Case discussed with the son. Thank you for the consultation. I will continue to follow patient with you during his hospital stay.
--- NOTE | 2020-03-14 14:11 | P.CN ---
Psychiatric Consult - . Consult date: 03/14/20 Consult:: 03/14/20 14:01 IDENTIFYING DATA: This patient is a 89-year-old male who currently lives alone in the house has 2 kids is retired and is . HISTORY OF PRESENT ILLNESS: The patient presented to the hospital after being found unconscious on the floor at home with the possible overdose on his medications. Patient has a significant history of recurrent right-sided pleural effusions with lung cancer. Patient was set to have a Pleurx catheter placed however patient came into the ER prior to this procedure being done as an outpatient. Patient is currently on hospice care. Patient's son was concerned about the possible overdose. Patient's computed tomography scan of his head revealed no acute changes and patient's creatinine and BUN has been elevated. Patient's nurse claims that patient has less confused today and was taking his medications however having difficulty swallowing and eating food however has been sleeping fairly well. Patient's son was at the bedside and eager to speak to jingle writer in private. Patient's son described patient's history medically and also spoke about finding Valium and Ultram pill bottles in patient's trash and states that she made a statement to him about not wanting to live any longer and having a poor will to live. He states that patient has been dealing with the lung issues for approximately 3 weeks now. Patient's son claims that patient does not have a history of depression or any suicide attempts or any psychiatric history in the past. Patient was seen at the bedside and appears to be lethargic and was difficult to awaken. Patient appears to be mildly confused during conversation and claims that his mood is "okay" and was fairly superficial with jingle writer. Patient wanted to go back to sleep. He denied any depression at this time however did admit to an overdose. He states that at the time he was feeling "desperate" to resolve his symptoms however at this current time he claims that "I would never do that again". He denies any current suicidal thoughts. He states that his sleep is fair. He believes that the date is the "44" and does not know his location however does know his name. At this time patient denies any suicidal or homical ideations, intent or plan. Patient denies any auditory, visual hallucinations, he did state that he did have some visual hallucinations yesterday however this has resolved. Patients admits to using alcohol daily drinking 2-3 beers a day and denies any other recreational drug use is a former cigarette smoker. PAST PSYCHIATRIC HISTORY: Patient has no significant psychiatric history. Patient denies being on any psychiatric medications. Patient denies any previous psychiatric hospitalizations. Patient denies any psychiatric outpatient follow- up. Patient denies any history of suicide attempts in the past. PAST MEDICAL HISTORY: Hypertension, hyperlipidemia, COPD, prostate cancer, osteoarthritis, lung cancer. ALLERGIES: as per EMR. CHEMICAL DEPENDENCY HISTORY: as per HPI. FAMILY PSYCHIATRIC/SUBSTANCE USE HISTORY: denies SOCIAL HISTORY: Patient was born and raised in [facility] and completed up to the sixth grade. 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 He is currently has 2 kids and lives in alone in a house. MENTAL STATUS EXAM: General Appearance: Patient appears to be stated age is lethargic, confused at times however attempts to cooperate. Patient appears to have fair hygiene and grooming wearing hospital gown with poor eye contact. Behavior: Patient is calmly lying in bed without any agitated behavior. Appears to be lethargic. Speech: Patient's speech is fluent and nonpressured. Mood/Affect: Patient reports their mood is "ok", affect is congruent Suicidality/Homicidality: Patient denies having any suicidal or homicidal ideat ion intent or plan. Perceptions: Patient denies any visual hallucinations and denies any auditory hallucinations Though content/process: Poverty of content, concrete and logical. Memory and concentration: AOX1, believes the date is the "44th" and does not know his current location, poor attention span. Cannot spell "WORLD" backwards Judgment and insight: poor and confused IMPRESSIONS: Delirium, likely multiple etiologies including medications, alcohol withdrawal, toxic metabolic etc. Alcohol use disorder, currently in withdrawal PLAN: -At this time patient DOES NOT meet criteria for inpatient psychiatric admission. -Patient DOES NOT have decision making capacity at this time and is unable to reason through and communicate/appreciate the risks, benefits and alternatives to treatment. -Delirium precautions recommended with patient including - avoiding use of narcotics and STEELSCOPE OPERATOR sedatives, limit anticholinergic medications when possible, frequent re-orientation, minimize use of restraints, open window shades during the day and close them at night -Would recommend the following medication changes/additions: Discontinued Benadryl at this time and replaced it with loratadine for ALLERGIES. Primary team to consider the usefulness of scopolamine and whether or not this can be discontinued as it will be contributing to patient's confusion/delirium. Started melatonin 3 mg daily at bedtime for sleep. -Patient should not be left to be discharged back home to live alone as he cannot care for himself and had a overdose attempt and is high risk for decompensation. Patient should be transferred to [facility] for hospice care once he is medically cleared. -Psychiatry will sign off at this point, please contact with any questions.
[2020-03-14] MEDS: TORSEMIDE 20 MG TAB PO SCH (14:48)
--- NOTE | 2020-03-14 16:34 | PN ---
PROGRESS NOTE This is an 89-year-old gentleman who was admitted back on March 10. He has a history of hyperlipidemia, hypertension, COPD, prostate cancer with seed implant, recurrent right- sided pleural effusion and concerns for possible lung cancer. The patient has had previous bronchoscopies, but without biopsy due to excessive bleeding. The patient has also had 2 thoracentesis which were nondiagnostic. The patient's plan was to place a PleurX catheter. However, the patient apparently came to the emergency room after sustaining a fall. Anyway, the patient is very confused and lethargic and somnolent. Currently, he is resting comfortably. The patient is a NO CODE. He is a DO NOT INTUBATE/DO NOT RESUSCITATE patient. Currently, his vital signs include temperature 97.6, heart rate 61, respiratory rate 16, blood pressure 124/62 mean 82, 5 L saturation 92%-94%. Appears in no acute distress. HEENT: Examination is grossly unremarkable. Nasal O2 noted. NECK: Supple. Full range of motion. No adenopathy. Neck veins are flat. CARDIOVASCULAR: Examination reveals a regular rhythm and rate. S1, S2 normal. There is no murmur. No S3-S4. LUNGS: Reveal diminished breath sounds at the right base. There is some expiratory rhonchi and a few scattered crackles in bibasilar areas. ABDOMEN: Soft, patent. There is no masses or tenderness. EXTREMITIES: Intact. No cyanosis, clubbing, or edema. SKIN: Without rash. NEUROLOGIC: Examination is difficult to assess. He is rather lethargic and sleepy. He does move all 4 extremities. CURRENT LABORATORY DATA: Includes a white count of 10.4, hemoglobin 13.4, hematocrit 41.9, platelet count 393,000. Sodium, potassium chloride, CO2 all normal. BUN and creatinine were 30 and 1.94. Anion gap is 10. Microbiology is currently negative. CHEST X-RAY: Shows a prominent right hilum with underlying mass or adenopathy in the differential diagnosis. There is also bilateral infiltrates and pleural effusion, which could be consistent with pneumonia or fluid overload. Medications are reviewed. ASSESSMENT: 1. Status post fall with question of overdose on benzodiazepine. There was no acute fracture or dislocation of the cervical spine and no intracranial abnormalities of note. 2. Recurrent large right-sided pleural effusion, previous thoracentesis x2, negative for malignancy, although lung cancer is suspected. 3. Right hilar obstructing mass or neoplasm associated with thoracic adenopathy, bronchoscopy on February 09, 2020 revealed completely obstructed bronchus intermedius and a regular bronchial mucosa, highly suspicious for lung cancer. 4. History of prostate cancer. 5. Recent history of hemoptysis. 6. Chronic obstructive pulmonary disease. 7. History of chronic tobacco dependence. 8. Essential hypertension. 9. Hyperlipidemia. PLAN: The patient is a DO NOT RESUSCITATE/DO NOT INTUBATE patient. His overall prognosis is quite poor. The patient is certainly suspected to have lung cancer. Will continue to follow. Prognosis is very poor. No additional recommendations are made at this time. Conservative management. MMODL / IJN: [id number] /
--- NOTE | 2020-03-14 17:06 | P.PN ---
Subjective Progress Note Date: 03/14/20 Principal diagnosis: Recurrent right-sided pleural effusion 89-year-old gentleman with history of hyperlipidemia hypertension, chronic obstructive pulmonary disease, prostate cancer with seed placement, recurrent right-sided pleural effusion and concerns for possible lung cancer. Bronchoscopy had previously been performed but no biopsies were able to be taken due to excessive bleeding. He's had 2 thoracentesis that were nondiagnostic. The plan was for Pleurx catheter placement however the patient was brought in again yesterday to the emergency room after sustaining a fall at home. There is some question about possible overdose. Urine drug screen was positive for cecilia odiazepines. CoVID screen negative. Chest x-ray revealed chronic parenchymal changes and cardiomegaly with recurrent large right-sided pleural effusion. 03/13/2020 Patient is seen in follow-up on the selective care unit. He is resting comfortably in bed. Awake and alert in no acute distress. Maintaining O2 saturations in the upper 90s on 5 L/m per nasal cannula. He is afebrile. Hemodynamically stable. White count 12.7. Hemoglobin 13.7. Sodium 137. Potassium 4.6. Creatinine 1.42. Patient has a known right intermedius bronchus obstruction with irregular mass highly suspicious of bronchial tumor; patient has undergone thoracentesis twice which has been nonconclusive; recent thoracentesis fluid has been sent for cytology which is pending 03/14/2020 Patient is seen and evaluated up in the recliner; no new complaints Lab review shows an elevated creatinine of 1.94; pleural fluid cytology is still pending; nephrology is consulted for acute renal injury due to ATN secondary to hemodynamic stability along with use of lisinopril and Lasix; nephrology recommended to switch Lasix to Demadex 20 mg daily; lisinopril is discontinued; we will monitor strict JENNIFER's, daily weights, and electrolytes; continue to avoid nephrotoxic agents; prognosis remains guarded; family is considering hospice pending pleural fluid cytology Objective - Vital Signs Vital signs: Vital Signs Temp 97.6 F 03/14/20 07:04 Pulse 61 03/14/20 07:04 Resp 16 03/14/20 07:04 BP 124/62 03/14/20 07:04 Pulse Ox 92 L 03/14/20 07:04 Intake & Output 03/13/20 03/14/20 03/14/20 18:59 06:59 18:59 Intake Total 540 60 Output Total 1 5 201 Balance 539 55 -201 Intake: Oral 540 60 Output: Urine 200 Stool 1 5 1 Other: Voiding Method Indwelling Catheter Indwelling Catheter # Voids 0 1 # Bowel Movements 1 - Exam PHYSICAL EXAMINATION: GENERAL: The patient is alert and oriented x3, not in any acute distress. Well developed, well nourished. HEENT: Pupils are round and equally reacting to light. EOMI. No scleral icterus. No conjunctival pallor. Normocephalic, atraumatic. No pharyngeal erythema. No thyromegaly. CARDIOVASCULAR: S1 and S2 present. No murmurs, rubs, or gallops. PULMONARY: Chest is clear to auscultation, no wheezing or crackles. ABDOMEN: Soft, nontender, nondistended, normoactive bowel sounds. No palpable organomegaly. MUSCULOSKELETAL: No joint swelling or deformity. EXTREMITIES: No cyanosis, clubbing, or pedal edema. NEUROLOGICAL: Gross neurological examination did not reveal any focal deficits. SKIN: No rashes. - Labs CBC & Chem 7: 03/14/20 07:49 03/14/20 07:49 Labs: Abnormal Lab Results - Last 24 Hours (Table) 03/14/20 03/14/20 Range/Units 07:49 07:49 Neutrophils # 8.1 H (1.3-7.7) k/uL Lymphocytes # 0.9 L (1.0-4.8) k/uL BUN 30 H (9-20) mg/dL Creatinine 1.94 H (0.66-1.25) mg/dL Glucose 116 H (74-99) mg/dL Assessment and Plan Assessment: 1. Status post fall with question of overdose on benzodiazepines. Computed tomography scan revealed no acute fracture or dislocation of the cervical spine. No acute intracranial hemorrhage or midline shift. 2. Recurrent large right-sided pleural effusion, previous thoracentesis 2 negative for malignancy suspect lung cancer, third thoracentesis performed on 03/11/2020 with approximate 2100 mL removed. Pathology pending 3. Right hilar obstructing mass or neoplasm associated with thoracic adenopathy, bronchoscopy on 02/09/2020 revealed completely obstructed bronchus intermedius with irregular and the bronchial tumor highly suspicious for lung cancer however biopsies were not attempted related to intermittent bleeding throughout the procedure 4. Chronic obstructive pulmonary disease; not in exacerbation 5. Hypertension; stable on Cardizem 180 mg daily; lisinopril 20 mg daily 6. Hyperlipidemia; Lipitor 10 mg by mouth daily at bedtime DVT prophylaxis; SCDs CODE STATUS; DO NOT RESUSCITATE
[2020-03-14] MEDS ORDERED: MELATONIN 3 MG TABLET PO SCH (21:00)
[2020-03-15] MEDS: LORazepam 2 MG/ML INJ IV PRN ×3 (01:04→12:12)
[2020-03-15] MEDS: MORPHINE SULFATE 2 MG/ML SYRINGE IV PRN ×2 (06:58→14:21)
[2020-03-15 07:27] VITALS: BP 122/65; PULSE 62; RESP 16; TEMP 96.9
[2020-03-15] MEDS: ATORVASTATIN 10 MG TAB PO SCH (08:49)
[2020-03-15] MEDS: DILTIAZEM CD 180 MG CAP.ER.24H PO SCH (08:49)
[2020-03-15] MEDS: FAMOTIDINE 20 MG TAB PO SCH (08:49)
[2020-03-15] MEDS: CALCIUM CARBONATE 500 MG CHEWABLE PO SCH (08:49)
[2020-03-15] MEDS: TORSEMIDE 20 MG TAB PO SCH (08:50)
[2020-03-15] MEDS: ZINC SULFATE 220 MG CAP PO SCH (08:50)
[2020-03-15] MEDS: hydrALAZINE HCL 50 MG TAB PO SCH (08:50)
[2020-03-15] MEDS ORDERED: LORATADINE 10 MG TAB PO SCH (09:00)
[2020-03-15 09:20] LABS: Calcium 9.8 mg/dL (8.4-10.2); Magnesium 2.4 mg/dL (1.6-2.3); Potassium 4.3 mmol/L (3.5-5.1)
--- NOTE | 2020-03-15 10:52 | P.PN ---
Subjective Progress Note Date: 03/15/20 Principal diagnosis: Recurrent right lung pleural effusion This is an 89-year-old gentleman with history of hyperlipidemia hypertension, chronic obstructive pulmonary disease, prostate cancer with seed placement, recurrent right-sided pleural effusion and concerns for possible lung cancer. Bronchoscopy had previously been performed but no biopsies were able to be taken due to excessive bleeding. He's had 2 thoracentesis that were nondiagnostic. The plan was for Pleurx catheter placement however the patient was brought in again yesterday to the emergency room after sustaining a fall at home. There is some question about possible overdose. Urine drug screen was positive for benzodiazepines. CoVID screen negative. Chest x-ray revealed chronic parenchymal changes and cardiomegaly with recurrent large right-sided pleural effusion. We are consulted for the same. He is seen today on the regular medical floor. Currently awake and alert in no acute distress. Confused to time and place. Maintaining O2 saturations in the mid 90s on 5 L/m per nasal cannula. He is afebrile. Hemodynamically stable. Sodium 133. Potassium 4.1. Creatinine 0.99. INR 1.1. Heme globin 11.7. White count 8.6. The patient is seen today 03/12/2020 in follow-up on the selective care unit. He is currently sitting up in bed. Awake and alert in no acute distress. Breathing a bit easier today compared to yesterday. Maintaining O2 saturations in the low 90s on 4 L/m per nasal cannula. She's afebrile. Hemodynamically stable. White count 10.0. Hemoglobin 12.9. Sodium 136. Potassium 4.1. Creatinine 1.40. Pleural fluid cytology from yesterday's thoracentesis pending. Today's chest x-ray shows significant improvement in aeration of the right lung with residual pleural effusion. The patient is seen today 03/13/2020 in follow-up on the selective care unit. He is resting comfortably in bed. Awake and alert in no acute distress. Maintaining O2 saturations in the upper 90s on 5 L/m per nasal cannula. He is afebrile. Hemodynamically stable. White count 12.7. Hemoglobin 13.7. Sodium 137. Potassium 4.6. Creatinine 1.42. On 03/15/2020 patient seen in follow-up on general medical surgical floor. He is awake and alert, oriented 3, he sitting in the chair, in no acute distress, he is on 5 L of oxygen his pulse ox is 98%, hemodynamically stable, breathing seems to be comfortable, nonlabored, patient does get dyspneic with exertion. He is afebrile. Lung sounds revealed some minimal rhonchi in bilateral bases, no wheezing. He states he is going home today, possibly with hospice, today's labs have been reviewed, electrolytes are within normal limits, his renal profile slightly worsen, with BUN of 37, and creatinine of 2.09. Nephrology services are following. His cytology from the right-sided thoracentesis on 03/11/2020 is still pending at this time. Objective - Vital Signs Vital signs: Vital Signs Temp 96.9 F L 03/15/20 07:00 Pulse 62 03/15/20 07:00 Resp 16 03/15/20 07:00 BP 122/65 03/15/20 07:00 Pulse Ox 98 03/15/20 07:00 Intake & Output 03/14/20 03/15/20 03/15/20 18:59 06:59 18:59 Intake Total 100 60 Output Total 201 200 Balance -101 -140 Intake: IV 60 .9 @ kvo 60 Oral 100 Output: Urine 200 200 Stool 1 Other: Voiding Method Indwelling Catheter Indwelling Catheter # Voids 1 - Exam GENERAL EXAM: Alert, pleasant, 82-year-old white male, on 5 L of oxygen comfortable in no apparent distress. HEAD: Normocephalic/atraumatic. EYES: Normal reaction of pupils, equal size. Conjunctiva pink, sclera white. NOSE: Clear with pink turbinates. THROAT: No erythema or exudates. NECK: No masses, no JVD, no thyroid enlargement, no adenopathy. CHEST: No chest wall deformity. Symmetrical expansion. LUNGS: Equal air entry with a few bibasilar rhonchi CVS: Regular rate and rhythm, normal S1 and S2, no gallops, no murmurs, no rubs ABDOMEN: Soft, nontender. No hepatosplenomegaly, normal bowel sounds, no guarding or rigidity. EXTREMITIES: No clubbing, no edema, no cyanosis, 2+ pulses and upper and lower extremities. MUSCULOSKELETAL: Muscle strength and tone normal. SPINE: No scoliosis or deformity SKIN: No rashes CENTRAL NERVOUS SYSTEM: Alert and oriented -3. No focal deficits, tone is normal in all 4 extremities. PSYCHIATRIC: Alert and oriented -3. Appropriate affect. Intact judgment and insight. - Labs CBC & Chem 7: 03/14/20 07:49 03/15/20 08:03 Labs: Abnormal Lab Results - Last 24 Hours (Table) 03/15/20 Range/Units 08:03 BUN 37 H (9-20) mg/dL Creatinine 2.09 H (0.66-1.25) mg/dL Glucose 134 H (74-99) mg/dL Magnesium 2.4 H (1.6-2.3) mg/dL Assessment and Plan Plan: Assessment: #1. Recurrent large right-sided pleural effusion with history of previous thoracentesis 2 with cytology negative for malignancy, third thoracentesis performed on 03/11/2020 with removal of 2.1 L of pleural fluid and cytology is still pending at this time #2. Right hilar obstructing mass or neoplasm associated with thoracic adenopathy, bronchoscopy on 02/09/2020 revealed completely obstructed bronchus intermedius with the irregular borders, and a bronchial tumor was highly suspicious for lung cancer however biopsies were not attempted related to intermittent bleeding throughout the procedure #3. Status post fall with questionable overdose on benzodiazepines #4. History of prostate cancer #5. Recent history of hemoptysis #6. COPD #7. History of chronic tobacco dependence currently in remission #8. Hypertension #9. Hyperlipidemia Plan: Patient is clinically stable from pulmonary perspective, wean FiO2, increase activity as tolerated, maintain safety precautions, patient is awake and oriented 3, denies any worsening dyspnea, does have some exertional dyspnea, vital signs have been stable, his pleural fluid cytology is still pending however based on his radiologic findings, and findings seen during bronchoscopy on 02/09/2020 right hilar obstructing mass is highly suspicious for lung cancer. From previous discussions with the patient's son and the patient himself and Dr. Broderick, it was decided not to attempt another bronchoscopy with biopsy. The patient and his son opted for palliative care/hospice. From pulmonary perspective patient can be considered for discharge home today back to hospice care today. I performed a history & physical examination of the patient and discussed their management with my nurse practitioner, Tonya Gordillo. I reviewed the nurse practitioner's note and agree with the documented findings and plan of care. Lung sounds are positive for diminished breath sounds. The findings and the impression was discussed with the patient. I attest to the documentation by the nurse practitioner. Time with Patient: Less than 30
--- NOTE | 2020-03-15 12:56 | P.PN ---
Subjective Patient is seen in follow-up for acute kidney injury. Creatinine 2.09 today. Patient is awake. He is not a reliable historian. Blood pressure controlled. No changes overnight. He'll be going home on hospice. Vital signs are stable. General: The patient appeared well nourished and normally developed. HEENT: Head exam is unremarkable. Neck is without jugular venous distension. LUNGS: Breath sounds decreased. HEART: Rate and Rhythm are regular. ABDOMEN: Soft, nontender. EXTREMITITES: No clubbing, cyanosis, or edema. Objective - Vital Signs Vital signs: Vital Signs Temp 96.9 F L 03/15/20 07:00 Pulse 62 03/15/20 07:00 Resp 16 03/15/20 07:00 BP 122/65 03/15/20 07:00 Pulse Ox 98 03/15/20 07:00 Intake & Output 03/14/20 03/15/20 03/15/20 18:59 06:59 18:59 Intake Total 100 60 Output Total 201 200 Balance -101 -140 Intake: IV 60 .9 @ kvo 60 Oral 100 Output: Urine 200 200 Stool 1 Other: Voiding Method Indwelling Catheter Indwelling Catheter # Voids 1 - Labs CBC & Chem 7: 03/14/20 07:49 03/15/20 08:03 Labs: Abnormal Lab Results - Last 24 Hours (Table) 03/15/20 Range/Units 08:03 BUN 37 H (9-20) mg/dL Creatinine 2.09 H (0.66-1.25) mg/dL Glucose 134 H (74-99) mg/dL Magnesium 2.4 H (1.6-2.3) mg/dL Assessment and Plan Plan: Assessment: 1. Acute kidney injury secondary to ATN secondary to hemodynamic instability further worsened with the use of lisinopril and Lasix. Baseline creatinine 1. It is up to 2.09 today. UA from 03/10/2020 completely benign. 2. Benign hypertension. Stable. 3. Bronchial tumor with thoracic adenopathy. 4. Recurrent large right-sided pleural effusions status post 3 thoracentesis. Most recent on March 11 2.1 L drained. 5. Potential overdose on Valium and Ultram. Plan: Maintain Demadex 20 mg once daily. Discontinued lisinopril. Overall prognosis guarded. Patient is not a candidate for renal replacement therapy. Potential discharge on hospice today.
--- NOTE | 2020-03-15 12:59 | P.DS ---
Providers Date of admission: 03/10/20 13:05 Expected date of discharge: 03/15/20 Attending physician: Barber Botello Consults: 03/10/20 17:18 Consult Physician Routine Consulting Provider: Prosper Gonzalez Consult Reason/Comments: pleural vac Do you want consulting provider notified?: Yes 03/10/20 17:19 Consult Physician Routine Consulting Provider: Xiomara Palacios Consult Reason/Comments: lung CA Do you want consulting provider notified?: Yes 03/12/20 17:26 Consult Physician Routine Consulting Provider: Jakob Rosa Consult Reason/Comments: depression, poss took too many meds intentionally Do you want consulting provider notified?: Yes 03/14/20 12:38 Consult Physician Routine Consulting Provider: Greg Goins Consult Reason/Comments: worsening renl function Do you want consulting provider notified?: Yes Primary care physician: Stated None Hospital Course: Final diagnosis Recurrent large right-sided pleural effusion with previous thoracentesis 3, possible suspect lung cancer with pathology pending Right hilar obstructing mass or neoplasm associated with thoracic adenopathy, recent bronchoscopy revealed completely obstructed bronchus intermedius and bron chial tumor highly specific suspicious for lung cancer Chronic obstructive pulmonary disease Hypertension Hyperlipidemia Status post fall with questionable possible overdose on benzodiazepines DVT prophylaxis No code, no CPR, no vent Discharge disposition Patient is being discharged in a stable condition with extremely guarded and poor prognosis to [facility]. Total time taken is 35 minutes. History of present illness This is an 89-year-old male who was recently admitted with recent fall at home and possibility of overdose on benzodiazepines and was being closely monitored. Patient has a history of hyperlipidemia, hypertension, chronic obstructive pulmonary disease, prostate cancer, recurrent right-sided pleural effusions with possible lung cancer. Patient has recently underwent 2 thoracentesis for palliative reasons and contemplated a possible Pleurx catheter but patient continued to worsen. Patient's most recent chest x-ray showed a large right-s ided pleural effusion and family has opted for hospice with comfort care. Patient is being transferred to [facility] today. Currently no reports of chest pain, worsening shortness of breath, or palpitations. Patient is afebrile. No reports of nausea or vomiting and patient is tolerating diet. Guarded prognosis. On exam vital signs are stable. Temp is 96.9F, pulse is 62, respirations are 16, blood pressure is 122/65, oxygen saturation is 98% on 5 L via nasal cannula. Cardio S1, S2 are muffled. Respiratory shows diminished breath sounds at the bases with a few scattered rhonchi noted. Some mild expiratory wheezing noted. Abdomen is soft and nontender. Nervous system shows mild diffuse weakness. Please refer to medication reconciliation sheet for a list of medications. Patient Condition at Discharge: Fair Plan - Discharge Summary Discharge Rx Participant: No New Discharge Prescriptions: New Torsemide [Demadex] 20 mg PO DAILY tab bisacodyL [Dulcolax] 10 mg RECTAL DAILY PRN supp PRN Reason: Constipation Scopolamine 1.5MG/72Hr Patch [TransDerm Scop] 1 patch TRANSDERM Q72H patch Acetaminophen Suppository [Tylenol Suppository] 650 mg RECTAL Q4HR PRN supp PRN Reason: Fever And/Or Mild Pain Continue Lovastatin [Mevacor] 20 mg PO DAILY Calcium Carbonate [Calcium] 600 mg PO DAILY Nitroglycerin Sl Tabs [Nitrostat] 0.4 mg SUBLINGUAL Q5M PRN #25 tab PRN Reason: Chest Pain traMADol HCL 50 mg PO QID PRN PRN Reason: Pain Diltiazem HCl [Diltiazem HCl 24Hr ER (XR)] 180 mg PO DAILY Zinc 50 mg PO DAILY Famotidine [Pepcid] 10 mg PO DAILY lisinopriL [Zestril] 20 mg PO DAILY #30 tab hydrALAZINE HCL [Apresoline] 50 mg PO TID #90 tab Discontinued Furosemide [Lasix] 20 mg PO DAILY #30 tab Discharge Medication List Lovastatin [Mevacor] 20 mg PO DAILY 06/16/14 [History] Calcium Carbonate [Calcium] 600 mg PO DAILY 09/09/17 [History] Nitroglycerin Sl Tabs [Nitrostat] 0.4 mg SUBLINGUAL Q5M PRN #25 tab 09/10/17 [Rx] Diltiazem HCl [Diltiazem HCl 24Hr ER (XR)] 180 mg PO DAILY 02/06/20 [History] Zinc 50 mg PO DAILY 02/06/20 [History] traMADol HCL 50 mg PO QID PRN 02/06/20 [History] Famotidine [Pepcid] 10 mg PO DAILY 02/07/20 [History] hydrALAZINE HCL [Apresoline] 50 mg PO TID #90 tab 02/10/20 [Rx] lisinopriL [Zestril] 20 mg PO DAILY #30 tab 02/10/20 [Rx] Acetaminophen Suppository [Tylenol Suppository] 650 mg RECTAL Q4HR PRN supp 03/15/20 [Rx] Scopolamine 1.5MG/72Hr Patch [TransDerm Scop] 1 patch TRANSDERM Q72H patch 03/15/20 [Rx] Torsemide [Demadex] 20 mg PO DAILY tab 03/15/20 [Rx] bisacodyL [Dulcolax] 10 mg RECTAL DAILY PRN supp 03/15/20 [Rx] Follow up Appointment(s)/Referral(s): [facility], [NON-STAFF] - Activity/Diet/Wound Care/Special Instructions: [facility] with [facility] Continue dysphagia level II ground diet Discharge Disposition: TRANSFER TO SNF/ECF
== END 2020-03-15 15:51 | disposition hospice, home (50) | DRG 917 ==
LOC: 4SSUR 13:05
PROVIDERS: ADMIT Hospitalist; ATTEND Hospitalist
PROC: 0W993ZZ Drainage of Right Pleural Cavity, Percutaneous Approach (ICD-10-PCS; principal; 2020-03-11)
DX: T42.4X1A Poisoning by benzodiazepines, accidental (unintentional), initial encounter (principal); N17.0 Acute kidney failure with tubular necrosis; G93.41 Metabolic encephalopathy; J90 Pleural effusion, not elsewhere classified; E44.1 Mild protein-calorie malnutrition; E87.1 Hypo-osmolality and hyponatremia; Z51.5 Encounter for palliative care; J43.9 Emphysema, unspecified; M19.90 Unspecified osteoarthritis, unspecified site; E78.5 Hyperlipidemia, unspecified; E83.51 Hypocalcemia; Z66 Do not resuscitate; Z11.59 Encounter for screening for other viral diseases; Z96.1 Presence of intraocular lens; D63.8 Anemia in other chronic diseases classified elsewhere; I11.9 Hypertensive heart disease without heart failure; W19.XXXA Unspecified fall, initial encounter; F32.9 Major depressive disorder, single episode, unspecified; Z79.899 Other long term (current) drug therapy; Z87.891 Personal history of nicotine dependence; Z85.46 Personal history of malignant neoplasm of prostate; Z98.42 Cataract extraction status, left eye; Z98.41 Cataract extraction status, right eye; Z98.890 Other specified postprocedural states; Y92.009 Unspecified place in unspecified non-institutional (private) residence as the place of occurrence of the external cause
CPT/HCPCS: 71045; 76604; 80048; 83735; 85025; 88108; 88305; 88341; 88342